=== PATIENT | male | born 1940 | race Caucasian/White ===

== ENCOUNTER 2020-04-23 09:06 | Inpatient (IN) | payer OTHER ==
[2020-04-23 09:35] LABS: Absolute Lymphocytes (CBC) 3.1 K/uL (0.7-4.9); Basophils % 1.1 % (0-1.3); Hematocrit 40.4 % (39.6-49.0); Lymphocytes % 32.9 % (15.3-44.8); MPV 8.4 fL (7.6-11.3); RBC Red Blood Cell Count 4.43 M/uL (4.33-5.43)
[2020-04-23 09:36] LABS: Protime INR 0.97
--- NOTE | 2020-04-23 09:40 | RAD REPORT ---
EXAM DESCRIPTION: CT - Ct Stroke Brain Wo Cont - 04/23/2020 9:29 am CLINICAL HISTORY: facial droop, right sided paresthesias Headache, CVA COMPARISON: No comparisons TECHNIQUE: All CT scans are performed using dose optimization technique as appropriate and may inclu de automated exposure control or mA/KV adjustment according to patient size. FINDINGS: No intracranial hemorrhage, hydrocephalus or extra-axial fluid collection.2.1 cm area of d iminished density in the right frontal lobe is noted suggesting subacute to chronic ischemia. The paranasal sinuses and mastoids are clear. The calvarium is intact. IMPRESSION: 2.1 cm area of diminished density right frontal lobe probably represent subacute to transplant registered nurse angel ischemic insult. Elsewhere, no acute process is suspected. The findings were discussed with Dr. Harris in the emergency room on 04/23/2020 at 9:35 a.m. by helio garcía.
--- NOTE | 2020-04-23 09:44 | RAD REPORT ---
EXAM DESCRIPTION: RAD - Chest Single View - 04/23/2020 9:39 am CLINICAL HISTORY: weakness Chest pain. COMPARISON: CHEST SINGLE VIEW dated 10/14/2009 FINDINGS: Portable technique limits examination quality. The lungs are grossly clear. The heart is normal in size. No displaced fractures.Sternotomy wires pre sent. IMPRESSION: No acute intrathoracic process suspected.
[2020-04-23 09:50] LABS: ALT/SGPT 24 U/L (12-78); AST/SGOT 26 U/L (15-37); Albumin 4.1 g/dL (3.4-5.0); Alkaline Phosphatase 72 U/L (45-117); BUN Blood Urea Nitrogen 16 mg/dL (7-18); Bicarbonate 28 mmol/L (21-32); Bilirubin Direct 0.1 mg/dL (0-0.2); Bilirubin Total 0.6 mg/dL (0.2-1.0); Glucose Level 129 mg/dL (74-106); Magnesium 1.9 mg/dL (1.8-2.4); NT PRO-BNP 162 pg/mL (<450); Potassium 4.4 mmol/L (3.5-5.1); Protein, Total 7.2 g/dL (6.4-8.2); Sodium Level 139 mmol/L (136-145); Troponin (Emerg Dept Use Only) < 0.02 ng/mL (0.0-0.045)
--- NOTE | 2020-04-23 10:20 | ER ---
Nurse's Notes [facility] Name: Juanpablo Guevara Age: 80 yrs Sex: Male : 1940 Arrival Date: 04/23/2020 Time: 09:06 Bed 20 Private MD: Diagnosis: Cerebral infarction Presentation: 04/23 09:08 Chief complaint: Patient states: Woke up this morning at 0730 with numbness to R side ss of face and arm/ hand. Last known well was before going to bed at 1930 yesterday evening. Coronavirus screen: Client denies travel out of the [place] in the last 14 days. Ebola Screen: Patient denies exposure to infectious person. Patient denies travel to an Ebola-affected area in the 21 days before illness onset. An acute neurological deficit is present. The patient has been moved to a treatment area. Pre-hospital glucose is not applicable to this patient. Initial Sepsis Screen: Does the patient meet any 2 criteria? No. Patient's initial sepsis screen is negative. Does the patient have a suspected source of infection? No. Patient's initial sepsis screen is negative. Risk Assessment: Do you want to hurt yourself or someone else? Patient reports no desire to harm self or others. Onset of symptoms is unknown. 09:08 Method Of Arrival: Wheelchair ss 09:08 Acuity: CHRISTOPHE 3 ss Triage Assessment: 09:08 The onset of the patients symptoms was April 23, 2020 at 07:30. General: Appears in sv no apparent distress. comfortable, well groomed, well developed, Behavior is calm, cooperative, appropriate for age. Pain: Denies pain. Neuro: Level of Consciousness is awake, alert, obeys commands, Oriented to person, place, time, situation, Floating Operator are equal bilaterally Moves all extremities. Full function Gait is steady, Speech is normal, Facial symmetry appears normal, Reports numbness in right side of face and right arm. Cardiovascular: Patient's skin is warm and dry. Respiratory: Airway is patent Respiratory effort is even, unlabored, Respiratory pattern is regular, symmetrical. Derm: Skin is intact, Skin is pink, warm \T\ dry. Stroke Activation: Unknown of onset of time. Last known well was 1929 yesterday evening. Physician: Stroke Attending; Name: ; Notified At: ; Arrived At: Physician: Chief Stroke Resident; Name: ; Notified At: ; Arrived At: Physician: Stroke Resident; Name: ; Notified At: ; Arrived At: Physician: ED Attending; Name: ; Notified At: ; Arrived At: Physician: ED Resident; Name: ; Notified At: ; Arrived At: Historical: - Allergies: 09:21 Codeine; ss - Home Meds: 09:32 Plavix 75 mg Oral tab 1 tab once daily [Active]; Norvasc 5 mg Oral tab 1 tab once daily sv [Active]; citalopram 20 mg tab 1 tab once daily [Active]; lisinopril 40 mg Oral tab twice a day [Active]; metformin 1,000 mg Oral tab 1 tab 2 times per day [Active]; Lasix 20 mg Oral tab 1 tab once daily [Active]; levothyroxine 125 mcg tab 1 tab once daily [Active]; Vitamin Oral tab 1 tab once daily [Active]; Lamisil 250 mg oral tab 1 tab once daily [Active]; olanzapine 5 mg oral tab nightly [Active]; aspirin 81 mg Oral TbEC 1 tab once daily [Active]; atorvastatin 80 mg oral tab nightly [Active]; donepezil 5 mg oral tab nightly [Active]; carbidopa-levodopa 25-100 mg Oral tab 1 tab 3 times per day [Active]; magnesium oxide 500 mg Oral cap daily [Active]; - Immunization history:: Adult Immunizations up to date. - Social history:: Smoking status: Patient/guardian denies using tobacco, but has a distant history of tobacco abuse. Screenin:09 VAN Screening: Arm Drift: Patient shows no arm weakness. Visual Disturbance: No visual ss disturbance noted. Aphasia: No aphasia noted. Neglect: No neglect noted. 09:23 Abuse screen: Denies threats or abuse. Denies injuries from another. Nutritional ss screening: No deficits noted. Tuberculosis screening: Never had TB. 09:35 Fall Risk None identified. sv Assessment: 09:09 VAN Scoring: Arm Drift: Patients demonstrates NO arm weakness. Patient is VAN Negative. sv 09:35 T-PA (Activase) Screening: Contraindications: Patient reports onset of signs and sv symptoms of stroke greater than 6 hours ago: Yes. 09:36 Patient has been NPO before screening. The patient is alert, and able to follow sv commands. The patient does not exhibit slurred or garbled speech. The patient is not exhibiting difficulty speaking. The patient does not exhibit difficulty understanding words. The patient is able to swallow own secretions with no drooling or need for suction. Patient tolerated one teaspoon of water. No drooling, immediate coughing, gurgling, or clearing of the throat was noted. The patient tolerated 90mL of water. No drooling, immediate coughing, gurgling, or clearing of the throat was noted. The patient passed the bedside swallow screening. Oral medications may be given as ordered. Contact Physician for further diet orders. Provider notified of bedside swallow screening results: Bigg FRITZ. 09:36 Reassessment: Patient appears in no apparent distress at this time. No changes from sv previously documented assessment. Patient and/or family updated on plan of care and expected duration. Pain level reassessed. Patient is alert, oriented x 3, equal unlabored respirations, skin warm/dry/pink. Family at the bedside. Pain: Denies pain. Cardiovascular: Patient's skin is warm and dry. Rhythm is sinus rhythm. Respiratory: Airway is patent Respiratory effort is even, unlabored, Respiratory pattern is regular, symmetrical. 11:02 Reassessment: Patient appears in no apparent distress at this time. No changes from sv previously documented assessment. Patient and/or family updated on plan of care and expected duration. Pain level reassessed. Patient is alert, oriented x 3, equal unlabored respirations, skin warm/dry/pink. Vital Signs: 09:08 BP 180 / 75; Pulse 64; Resp 17; Temp 97.0(TE); Pulse Ox 100% on R/A; Weight 99.79 kg; ss Height 6 ft. 0 in. (182.88 cm); Pain 0/10; 09:51 BP 141 / 73; Pulse 61 MON; Resp 15; Pulse Ox 100% on R/A; sv 11:01 BP 160 / 76; Pulse 58 MON; Resp 15; Pulse Ox 100% on R/A; sv 09:08 Body Mass Index 29.84 (99.79 kg, 182.88 cm) 09:51 Sinus Rhythm sv 11:01 Sinus Rhythm sv NIH Stroke Scale Scores: 09:09 NIHSS Score: 1 ss 09:09 NIHSS Score: 1 sv 09:23 NIHSS Score: 2 [facility] ED Course: 09:06 Patient arrived in ED. mr 09:09 Bigg Baugh PA is PHCP. jmm 09:09 Albrao Harris MD is Attending Physician. jmm 09:15 Inserted saline lock: 20 gauge in right antecubital area, using aseptic technique. ss ,using aseptic technique. insertion by Laila Estrada RN Blood collected. 09:20 Triage completed. ss 09:[address] via stretcher. sv 09:21 Arm band placed on right wrist. ss 09:23 Patient has correct armband on for positive identification. Bed in low position. Call ss light in reach. Side rails up X2. monitor car operator on. Pulse ox on. NIBP on. 09:29 Laila Estrada RN is Primary Nurse. sv 09:29 CT Stroke Brain w/o Contrast In Process Unspecified. EDMS 09:[address] back from [address]. sv 09:36 X-ray(s) taken. sv 09:37 Awaiting lab results, Awaiting radiology results. sv 09:37 XRAY Chest (1 view) Sent. sv 09:40 XRAY Chest (1 view) In Process Unspecified. EDMS 10:19 Prince Judge MD is Hospitalizing Provider. [facility] 11:00 No provider procedures requiring assistance completed. Patient admitted, IV remains in sv place. intact. Administered Medications: No medications were administered Point of Care Testing: Blood Glucose: 09:21 Blood Glucose: 128 mg/dL; Ranges: Output: 11:27 Urine: 400ml (Voided); Total: 400ml. sv Outcome: 10:19 Decision to Hospitalize by Provider. [facility] 11:00 Admitted to Tele accompanied by [employer], via wheelchair, room 230, with chart, Report sv called to Tevin BALDERRAMA 11:00 Condition: stable 11:00 Instructed on the need for admit. 11:30 Patient left the ED. sv NIH Stroke Scale - NIH Stroke Score Date: 04/23/2020 Time: 09:09 Total Score = 1 1a. Level of Consciousness (LOC) - 0(Alert) 1b. Level of Consciousness (LOC) (Year \T\ Age) - 0(Both) 1c. LOC Commands (Open \T\ Closes Eyes/Souvenir Assembler) - 0(Both) 2. Best Gaze (Lateral Gaze Paresis) - 0(Normal) 3. Visual Field Loss - 0(No visual loss) 4. Facial Palsy - 0(Normal) 5a. Left Arm: Motor (10-second hold) - 0(No drift) 5b. Right Arm: Motor (10-second hold) - 0(No drift) 6a. Left Leg: Motor (5-second hold - always test supine) - 0(No drift) 6b. Right Leg: Motor (5-second hold - always test supine) - 0(No drift) 7. Limb Ataxia (finger/nose \T\ heel/gomes - test with eyes open) - 0(Absent) 8. Sensory Loss (pinprick arms/legs/face) - 1(Mild to moderate loss) 9. Best Language: Aphasia (description/naming/reading) - 0(No aphasia) 10. Dysarthria (speech clarity - read or repeat words) - 0(Normal) 11. Extinction and Inattention (visual/tactile/auditory/spatial/personal) - 0(No abnormality) Initials: NIH Stroke Scale - NIH Stroke Score Date: 04/23/2020 Time: 09:09 Total Score = 1 1a. Level of Consciousness (LOC) - 0(Alert) 1b. Level of Consciousness (LOC) (Year \T\ Age) - 0(Both) 1c. LOC Commands (Open \T\ Closes Eyes/Souvenir Assembler) - 0(Both) 2. Best Gaze (Lateral Gaze Paresis) - 0(Normal) 3. Visual Field Loss - 0(No visual loss) 4. Facial Palsy - 0(Normal) 5a. Left Arm: Motor (10-second hold) - 0(No drift) 5b. Right Arm: Motor (10-second hold) - 0(No drift) 6a. Left Leg: Motor (5-second hold - always test supine) - 0(No drift) 6b. Right Leg: Motor (5-second hold - always test supine) - 0(No drift) 7. Limb Ataxia (finger/nose \T\ heel/gomes - test with eyes open) - 0(Absent) 8. Sensory Loss (pinprick arms/legs/face) - 1(Mild to moderate loss) 9. Best Language: Aphasia (description/naming/reading) - 0(No aphasia) 10. Dysarthria (speech clarity - read or repeat words) - 0(Normal) 11. Extinction and Inattention (visual/tactile/auditory/spatial/personal) - 0(No abnormality) Initials: mignon NIH Stroke Scale - NIH Stroke Score Date: 04/23/2020 Time: 09:23 Total Score = 2 1a. Level of Consciousness (LOC) - 0(Alert) 1b. Level of Consciousness (LOC) (Year \T\ Age) - 0(Both) 1c. LOC Commands (Open \T\ Closes Eyes/Souvenir Assembler) - 0(Both) 2. Best Gaze (Lateral Gaze Paresis) - 0(Normal) 3. Visual Field Loss - 0(No visual loss) 4. Facial Palsy - 1(Minor Paralysis) 5a. Left Arm: Motor (10-second hold) - 0(No drift) 5b. Right Arm: Motor (10-second hold) - 0(No drift) 6a. Left Leg: Motor (5-second hold - always test supine) - 0(No drift) 6b. Right Leg: Motor (5-second hold - always test supine) - 0(No drift) 7. Limb Ataxia (finger/nose \T\ heel/gomes - test with eyes open) - 0(Absent) 8. Sensory Loss (pinprick arms/legs/face) - 1(Mild to moderate loss) 9. Best Language: Aphasia (description/naming/reading) - 0(No aphasia) 10. Dysarthria (speech clarity - read or repeat words) - 0(Normal) 11. Extinction and Inattention (visual/tactile/auditory/spatial/personal) - 0(No abnormality) Initials: yolanda Signatures: Dispatcher [employer] Laila Urias RN RN sv Mickail, Joel, PA PA [facility] Ivis Henley Shelby, CONCHIS BALDERRAMA ss Corrections: (The following items were deleted from the chart) 11:08 11:01 BP 101 / 62; Pulse 80bpm; Monitor: Sinus RhythmResp 20bpm; Pulse Ox 100% sv RA; sv
--- NOTE | 2020-04-23 10:21 | EDPHYS ---
Physician Documentation [facility] Name: Juanpablo Guevara Age: 80 yrs Sex: Male : 1940 Arrival Date: 04/23/2020 Time: 09:06 Bed 20 Private MD: ED Physician Albaro Harris HPI: 04/23 09:23 This 80 yrs old Male presents to ER via Wheelchair with complaints of Facial jmm Droop, Numbness Of Face, Numbness Of Arm. 09:23 The patient presents to the emergency department with paresthesias of the right upper jmm extremity, right side of the face. Onset: The symptoms/episode began/occurred. Associated signs and symptoms: Pertinent negatives:. This is a 80 year old male that presents to the ED with complaints of right sided facial droop and right arm numbness upon awakening this morning. Patient states he went to bed at 730 pm last and felt normal. . Historical: - Allergies: 09:21 Codeine; ss - Home Meds: 09:32 Plavix 75 mg Oral tab 1 tab once daily [Active]; Norvasc 5 mg Oral tab 1 tab once daily sv [Active]; citalopram 20 mg tab 1 tab once daily [Active]; lisinopril 40 mg Oral tab twice a day [Active]; metformin 1,000 mg Oral tab 1 tab 2 times per day [Active]; Lasix 20 mg Oral tab 1 tab once daily [Active]; levothyroxine 125 mcg tab 1 tab once daily [Active]; Vitamin Oral tab 1 tab once daily [Active]; Lamisil 250 mg oral tab 1 tab once daily [Active]; olanzapine 5 mg oral tab nightly [Active]; aspirin 81 mg Oral TbEC 1 tab once daily [Active]; atorvastatin 80 mg oral tab nightly [Active]; donepezil 5 mg oral tab nightly [Active]; carbidopa-levodopa 25-100 mg Oral tab 1 tab 3 times per day [Active]; magnesium oxide 500 mg Oral cap daily [Active]; - Immunization history:: Adult Immunizations up to date. - Social history:: Smoking status: Patient/guardian denies using tobacco, but has a distant history of tobacco abuse. ROS: 09:23 Constitutional: Negative for fever, chills, and weight loss, Cardiovascular: Negative jmm for chest pain, palpitations, and edema, Respiratory: Negative for shortness of breath, cough, wheezing, and pleuritic chest pain. 09:23 Neuro: Positive for numbness. 09:23 All other systems are negative. Exam: 09:23 Constitutional: This is a well developed, well nourished patient who is awake, alert, jmm and in no acute distress. 09:23 Eyes: EOMI, no conjunctival erythema appreciated ENT: Moist Mucus Membranes Neck: Trachea midline, Supple Chest/axilla: Normal chest wall appearance and motion. Cardiovascular: Regular rate and rhythm. No edema appreciated Respiratory: Normal respirations, no respiratory distress appreciated Abdomen/GI: Non distended, soft Back: Normal ROM Skin: General appearance color normal 09:23 Head/face: right sided facial droop. 09:23 Musculoskeletal/extremity: ROM: intact in all extremities. 09:23 Skin: Appearance: Color: normal in color. 09:23 Neuro: Orientation: is normal, Mentation: is normal, Memory: is normal. 09:23 Psych: Behavior/mood is pleasant, cooperative. 10:52 ECG was reviewed by the Attending Physician. [facility] Vital Signs: 09:08 BP 180 / 75; Pulse 64; Resp 17; Temp 97.0(TE); Pulse Ox 100% on R/A; Weight 99.79 kg; ss Height 6 ft. 0 in. (182.88 cm); Pain 0/10; 09:51 BP 141 / 73; Pulse 61 MON; Resp 15; Pulse Ox 100% on R/A; sv 11:01 BP 160 / 76; Pulse 58 MON; Resp 15; Pulse Ox 100% on R/A; sv 09:08 Body Mass Index 29.84 (99.79 kg, 182.88 cm) ss 09:51 Sinus Rhythm sv 11:01 Sinus Rhythm sv NIH Stroke Scale Scores: 09:09 NIHSS Score: 1 ss 09:09 NIHSS Score: 1 sv 09:23 NIHSS Score: 2 [facility] MDM: 09:14 Patient medically screened. [facility] 10:17 Data reviewed: vital signs, nurses notes. Counseling: I had a detailed discussion with [facility] the patient and/or guardian regarding: the historical points, exam findings, and any diagnostic results supporting the discharge/admit diagnosis, lab results, radiology results, the need for further work-up and treatment in the hospital. ED course: I discussed the patient with Dr. Chase and Dr. Funk whom accepted admission. . 04/23 09:15 Order name: Basic Metabolic Panel; Complete Time: 09:52 [facility] 04/23 09:15 Order name: CBC with Diff; Complete Time: :46 m 04/23 09:15 Order name: LFT's; Complete Time: :52 [facility] 04/23 09:15 Order name: Magnesium; Complete Time: :52 [facility] 04/23 09:15 Order name: NT PRO-BNP; Complete Time: :52 [facility] 04/23 09:15 Order name: PT-INR; Complete Time: :46 [facility] 04/23 09:15 Order name: Troponin (emerg Dept Use Only); Complete Time: :52 [facility] 04/23 09:15 Order name: XRAY Chest (1 view); Complete Time: :46 [facility] 04/23 09:15 Order name: EKG; Complete Time: 09:17 [facility] 04/23 09:15 Order name: Cardiac monitoring; Complete Time: 09:29 [facility] 04/23 09:15 Order name: EKG - Nurse/Tech; Complete Time: 09:29 [facility] 04/23 09:15 Order name: IV Saline Lock; Complete Time: 09:29 [facility] 04/23 09:15 Order name: CT Stroke Brain w/o Contrast; Complete Time: :46 [facility] 04/23 09:36 Order name: Glucose, Ancillary Testing; Complete Time: 09:46 [facility] 04/23 09:15 Order name: Labs collected and sent; Complete Time: 09:29 [facility] 04/23 09:15 Order name: O2 Per Protocol; Complete Time: 09:30 [facility] 04/23 09:15 Order name: O2 Sat Monitoring; Complete Time: 09:30 jmm EC:52 Rate is 59 beats/min. Rhythm is regular. QRS [place] is Normal. AR interval is normal. QRS jmm interval is normal. QT interval is normal. No Q waves. T waves are Inverted in leads V1, V4, V5. T waves are Flattened in lead aVR. No ST changes noted. Reviewed by me. Administered Medications: No medications were administered Point of Care Testing: Blood Glucose: 09:21 Blood Glucose: 128 mg/dL; ss Ranges: Critical Glucose Levels:Adult <50 mg/dl or >400 mg/dl <40 mg/dl or >180 mg/dl Disposition: 04/23/20 10:19 Hospitalization ordered by Prince Nu for Observation. Preliminary diagnosis is Cerebral infarction. - Bed requested for Telemetry/MedSurg (observation). - Status is Observation. sv - Condition is Stable. - Problem is new. - Symptoms are unchanged. NIH Stroke Scale - NIH Stroke Score Date: 04/23/2020 Time: 09: Total Score = 1 1a. Level of Consciousness (LOC) - 0(Alert) 1b. Level of Consciousness (LOC) (Year \T\ Age) - 0(Both) 1c. LOC Commands (Open \T\ Closes Eyes/Frit Burner) - 0(Both) 2. Best Gaze (Lateral Gaze Paresis) - 0(Normal) 3. Visual Field Loss - 0(No visual loss) 4. Facial Palsy - 0(Normal) 5a. Left Arm: Motor (10-second hold) - 0(No drift) 5b. Right Arm: Motor (10-second hold) - 0(No drift) 6a. Left Leg: Motor (5-second hold - always test supine) - 0(No drift) 6b. Right Leg: Motor (5-second hold - always test supine) - 0(No drift) 7. Limb Ataxia (finger/nose \T\ heel/gomes - test with eyes open) - 0(Absent) 8. Sensory Loss (pinprick arms/legs/face) - 1(Mild to moderate loss) 9. Best Language: Aphasia (description/naming/reading) - 0(No aphasia) 10. Dysarthria (speech clarity - read or repeat words) - 0(Normal) 11. Extinction and Inattention (visual/tactile/auditory/spatial/personal) - 0(No abnormality) Initials: NIH Stroke Scale - NIH Stroke Score Date: 04/23/2020 Time: 09: Total Score = 1 1a. Level of Consciousness (LOC) - 0(Alert) 1b. Level of Consciousness (LOC) (Year \T\ Age) - 0(Both) 1c. LOC Commands (Open \T\ Closes Eyes/Frit Burner) - 0(Both) 2. Best Gaze (Lateral Gaze Paresis) - 0(Normal) 3. Visual Field Loss - 0(No visual loss) 4. Facial Palsy - 0(Normal) 5a. Left Arm: Motor (10-second hold) - 0(No drift) 5b. Right Arm: Motor (10-second hold) - 0(No drift) 6a. Left Leg: Motor (5-second hold - always test supine) - 0(No drift) 6b. Right Leg: Motor (5-second hold - always test supine) - 0(No drift) 7. Limb Ataxia (finger/nose \T\ heel/gomes - test with eyes open) - 0(Absent) 8. Sensory Loss (pinprick arms/legs/face) - 1(Mild to moderate loss) 9. Best Language: Aphasia (description/naming/reading) - 0(No aphasia) 10. Dysarthria (speech clarity - read or repeat words) - 0(Normal) 11. Extinction and Inattention (visual/tactile/auditory/spatial/personal) - 0(No abnormality) Initials: NIH Stroke Scale - NIH Stroke Score Date: 04/23/2020 Time: 09:23 Total Score = 2 1a. Level of Consciousness (LOC) - 0(Alert) 1b. Level of Consciousness (LOC) (Year \T\ Age) - 0(Both) 1c. LOC Commands (Open \T\ Closes Eyes/Frit Burner) - 0(Both) 2. Best Gaze (Lateral Gaze Paresis) - 0(Normal) 3. Visual Field Loss - 0(No visual loss) 4. Facial Palsy - 1(Minor Paralysis) 5a. Left Arm: Motor (10-second hold) - 0(No drift) 5b. Right Arm: Motor (10-second hold) - 0(No drift) 6a. Left Leg: Motor (5-second hold - always test supine) - 0(No drift) 6b. Right Leg: Motor (5-second hold - always test supine) - 0(No drift) 7. Limb Ataxia (finger/nose \T\ heel/gomes - test with eyes open) - 0(Absent) 8. Sensory Loss (pinprick arms/legs/face) - 1(Mild to moderate loss) 9. Best Language: Aphasia (description/naming/reading) - 0(No aphasia) 10. Dysarthria (speech clarity - read or repeat words) - 0(Normal) 11. Extinction and Inattention (visual/tactile/auditory/spatial/personal) - 0(No abnormality) Initials: yolanda Addendum: 04/25/2020 18:40 Co-signature as Attending Physician, Albaro Harris MD I agree with the [facility] assessment and plan of care. Signatures: Dispatcher [employer] EDLaila Rivas, RN RN Autumn Apodaca RN RN Ablaro Harris MD MD [facility] Bigg Baugh PA PA [facility] Valentina Beauchamp RN RN ss Corrections: (The following items were deleted from the chart) 04/23 10:36 10:19 Hospitalization Ordered by Prince Nu REYNA for Observation. Preliminary diagnosis is Cerebral infarction. Bed requested for Telemetry/MedSurg (observation). Status is Observation. Condition is Stable. Problem is new. Symptoms are unchanged. andrez 11:30 10:36 04/23/2020 10:19 Hospitalization Ordered by Prince Nu REYNA for sv Observation. Preliminary diagnosis is Cerebral infarction. Bed requested for Telemetry/MedSurg (observation). Status is Observation. Condition is Stable. Problem is new. Symptoms are unchanged. dw
--- NOTE | 2020-04-23 12:10 | P.HP ---
Certification for Inpatient Patient admitted to: Observation With expected LOS: <2 Midnights Practitioner: I am a practitioner with admitting privileges, knowledge of patient current condition, hospital course, and medical plan of care. Services: Services provided to patient in accordance with Admission requirements found in Title 42 Section 412.3 of the Code of Federal Regulations Patient History Date of Service: 04/23/20 Reason for admission: facial droop and RUE weakness History of Present Illness: Patient is a 80 year old male with a PMH of type II diabetes mellitus, CAD s/p PCI, PAD s/p carotid artery stent, CABGx4, and CVA. He presents to the ER accompanied by daughter for evaluation of new onset facial droop and RUE weakness. Patient was last seen normal before going to bed last evening. He woke with a right sided facial droop and numbness, and numbness to his R arm. He called his daughter immediately. As per daughter, patient sounded like hims elf without speech abnormalities or abnormal thought content. As per daughter, however, patient has been getting slightly forgetful over the past few months. He would forget simple things like remembering whether or not he took his medications. He does not remember whether or not he took his ASA and plavix this morning. 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 He arrived in the ER with SBP 180 mmHg. No ASA or plavix was given as he told the ER team that he took those medications this morning. CT Head showed a 2.1 cm frontal lobe density suspicious for subacute to chronic ischemic insult. Allergies codeine Allergy (Verified 04/23/20 10:36) Hives Physical Examination - Vital Signs Temperature: 97.0 F Blood Pressure: 160/76 Pulse: 58 Respirations: 15 - Physical Exam General: Alert, In no apparent distress, Cooperative HEENT: Atraumatic, Normocephalic, PERRLA, EOMI Neck: Supple Respiratory: Clear to auscultation bilaterally, Normal air movement Cardiovascular: No edema, Normal pulses, Regular rate/rhythm, Normal S1 S2 Gastrointestinal: Normal bowel sounds, Soft and benign, Non-distended, No tenderness Musculoskeletal: No clubbing, No swelling, No contractures, No erythema, No tenderness, No warmth Neurological: Normal speech, Sensation intact, Normal affect - Studies Laboratory Data (last 24 hrs) 04/23/20 09:15: PT 11.5, INR 0.97 04/23/20 09:15: WBC 9.5, Hgb 13.6, Hct 40.4, Plt Count 199 04/23/20 09:15: Sodium 139, Potassium 4.4, BUN 16, Creatinine 1.26, Glucose 129 H, Magnesium 1.9, Total Bilirubin 0.6, AST 26, ALT 24, Alkaline Phosphatase 72 Assessment and Plan - Problems (Diagnosis) (1) CVA (cerebral vascular accident) Current Visit: Yes Status: Acute (2) Coronary artery disease Current Visit: Yes Status: Acute (3) Hyperlipidemia Current Visit: Yes Status: Acute (4) Type II diabetes mellitus Current Visit: Yes Status: Acute (5) Hypothyroidism Current Visit: Yes Status: Acute (6) Hypertension Current Visit: Yes Status: Acute - Advance Directives Does patient have a Living Will: No Does patient have a Durable POA for Healthcare: No Physician Review Additional Text: Assessment Patient is a 80 year old male with extensive cardiovascular history including CAD S/P PCI, CABG, PAD s/p carotid artery stent placement and CVA. He is admitted for stroke work up after he presented with new onset facial droop and RUE numbness. No tPA given as his NIHSS 2. Patient was last seen normal at least 8 hours [employer] and the onset of his symptoms cannot be clinically determined. CVA/TIA CAD S/P CABGx4, PCI PAD s/p carotid artery stent placement Hyperlipidemia HTN Hypothyroidism PLAN: Admit under observation with telemetry Resume home dose of ASA and plavix Allow permissive HTN for the next few days with SBP < 220 mmHg Follow up MRI Brain, MRA head and neck and 2-D ECHO Follow up HbA1c and lipid panel PT/OT Neurology has been consulted by ER. Will follow recommendations
[2020-04-23 12:45] VITALS: BMI 29.8
[2020-04-23] MEDS: FOLIC ACID 1 MG TABLET PO SCH (13:00)
[2020-04-23] MEDS: CLOPIDOGREL 75 MG TABLET PO SCH (15:15)
[2020-04-23] MEDS: METFORMIN HCL 500 MG TAB PO SCH (18:22)
--- NOTE | 2020-04-23 19:00 | RAD REPORT ---
EXAM DESCRIPTION: MRI - Brain W/Wo Cont - 04/23/2020 5:57 pm CLINICAL HISTORY: CVA COMPARISON: April 23, [address] TECHNIQUE: Axial, sagittal, and coronal magnetic images of the brain were obtained. 20 cc MultiHance administered intravenously FINDINGS: 4 millimeter area of enhancement is present within the deep white matter of the right [place] lobe. 20 x 1 millimeter sliver of increased signal signal on diffusion weighted sequences is present within deep white matter of the right frontal lobe probably subacute infarction The ventricles are normal in caliber. Small areas of increased signal within left frontal lobe have the appearance of old infarcts. 2 centimeter area of increased signal within the right frontal lobe likely old infarction. An extra-axial fluid collection is not noted. Fluid within the sinuses/mastoids is not seen IMPRESSION: Small subacute infarction right frontal lobe 4 millimeter area of enhancement within the deep white matter of the right frontal lobe. Most likely this is the sequela of a late subacute infarction. Neoplastic enhancement is considered less likely. This can be monitored on followup MRI the brain to assess stability/resolution
--- NOTE | 2020-04-23 19:23 | RAD REPORT ---
EXAM DESCRIPTION: MRI - MRA Neck W/Wo Cont - 04/23/2020 5:57 pm CLINICAL HISTORY: cva COMPARISON: None. TECHNIQUE: Magnetic resonance angiogram of the neck was performed. 20 cc MultiHance was administered intravenously. 3D MIPS reconstruction performed FINDINGS: High-grade stenosis right and left carotid bulbs and proximal internal carotid arteries. High-grade stenoses proximal right and left external carotid arteries There the common and external carotid arteries bilaterally are unremarkable without significant steno sis. The left vertebral artery is dominant without visualization of an abnormality. IMPRESSION: Severe stenoses right and left carotid bulbs and proximal right and left internal caroti d arteries NASCET criteria used. Mild 0-49% stenosis Moderate 50-69% stenosis Severe 70-99% stenosis
--- NOTE | 2020-04-23 19:25 | RAD REPORT ---
EXAM DESCRIPTION: MRI - MRA Head Wo Cont - 04/23/2020 5:57 pm CLINICAL HISTORY: cva COMPARISON: None. TECHNIQUE: Magnetic resonance angiogram was performed. 3D MIPS reconstruction performed FINDINGS: The anterior cerebral, left middle cerebral, posterior cerebral, distal internal carotid a nd basilar arteries do not demonstrate a significant stenosis. Moderate narrowing M2 segment right middle cerebral artery An aneurysm is not displayed. IMPRESSION: Moderate narrowing M2 segment right middle cerebral artery
[2020-04-23] MEDS ORDERED: D50W 25 GM/50 ML SYRINGE/VIAL IV PRN (19:46)
[2020-04-23] MEDS ORDERED: GLUCAGON 1 MG/VIAL IM PRN (19:46)
[2020-04-23] MEDS: INSULIN -REGULAR HUMAN 50 UNIT/0.5 ML ML SQ SCH (20:27)
[2020-04-23] MEDS ORDERED: HOME MED 1 EA UNK (Metformin Hcl [Metformin Hcl] 1 TAB) PO SCH (21:00)
[2020-04-23 23:29] VITALS: O2SAT 97
[2020-04-24] MEDS ORDERED: LEVOTHYROXINE SOD 0.125 MG TAB PO SCH (06:00)
[2020-04-24] MEDS: INSULIN -REGULAR HUMAN 50 UNIT/0.5 ML ML SQ SCH ×2 (07:30→11:30)
[2020-04-24] MEDS: CLOPIDOGREL 75 MG TABLET PO SCH (08:44)
[2020-04-24] MEDS: FOLIC ACID 1 MG TABLET PO SCH (08:45)
[2020-04-24] MEDS: METFORMIN HCL 500 MG TAB PO SCH (08:45)
[2020-04-24] MEDS ORDERED: MAGNESIUM OXIDE 400 MG TAB PO SCH (09:00)
[2020-04-24] MEDS ORDERED: ATORVASTATIN 80 MG TAB PO SCH (09:00)
[2020-04-24] MEDS ORDERED: terbinafine HCL 250 MG TAB PO SCH (09:00)
[2020-04-24] MEDS ORDERED: HOME MED 1 EA UNK (Magnesium Oxide [Magnesium] 1 TAB) PO SCH (09:00)
[2020-04-24] MEDS ORDERED: CITALOPRAM HYDROBROMIDE 10 MG PO SCH (09:00)
[2020-04-24] MEDS ORDERED: CITALOPRAM 10 MG TABLET PO SCH (09:00)
[2020-04-24] MEDS ORDERED: ASPIRIN EC 81 MG TAB PO SCH (10:11)
--- NOTE | 2020-04-24 11:55 | P.DS ---
Admission Date: 04/23/20 Discharge Date: 04/24/20 Disposition: TRANSFER TO [facility] Discharge Condition: GOOD Reason for Admission: facial droop and RUE weakness - Problems (1) CVA (cerebral vascular accident) Current Visit: Yes Status: Acute (2) Coronary artery disease Current Visit: Yes Status: Acute (3) Hyperlipidemia Current Visit: Yes Status: Acute (4) Type II diabetes mellitus Current Visit: Yes Status: Acute (5) Hypothyroidism Current Visit: Yes Status: Acute (6) Hypertension Current Visit: Yes Status: Acute Brief History of Present Illness: Patient is a 80 year old male with a PMH of type II diabetes mellitus, CAD s/p PCI, PAD s/p carotid artery stent, CABGx4, and CVA. He presents to the ER accompanied by daughter for evaluation of new onset facial droop and RUE weakness. Patient was last seen normal before going to bed last evening. He woke with a right sided facial droop and numbness, and numbness to his R arm. He called his daughter immediately. As per daughter, patient sounded like himself without speech abnormalities or abnormal thought content. As per daughter, however, patient has been getting slightly forgetful over the past few months. He would forget simple things like remembering whether or not he took his medications. He does not remember whether or not he took his ASA and plavix this morning. 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 He arrived in the ER with SBP 180 mmHg. No ASA or plavix was given as he told the ER team that he took those medications this morning. CT Head showed a 2.1 cm frontal lobe density suspicious for subacute to chronic ischemic insult. Hospital Course: Patient did well throughout this stay. His symptoms are nearly resolved. His work up, however, showed he remains a high risk for future/imminent stroke. MRA brain and neck showed moderate narrowing of M2 segment of the MCA, but also severe narrowing of both the left and right internal carotid artery. Since patient has good level of function a this time and is the main caregiver for , he will be an ideal candidate for cerebral angiogram for potential mechanical intra-arterial intervention to prevent future cerebral insults. Sign out given to Neuro interventionalist at [facility] in [place]. In the meantime, I will continue permissive hypertension, and discontinue home meds for now. Discharge on DAPT and folic acid Vital Signs/Physical Exam: Temp Pulse Resp BP Pulse Ox 97.5 F 75 18 169/77 H 97 04/24/20 08:00 04/24/20 08:00 04/24/20 08:00 04/24/20 08:00 04/24/20 08:00 General: In no apparent distress, Cooperative HEENT: Atraumatic, Normocephalic, EOMI Neck: Supple Respiratory: Clear to auscultation bilaterally, Normal air movement Cardiovascular: No edema, Normal pulses, Regular rate/rhythm, Normal S1 S2 Gastrointestinal: Normal bowel sounds, Soft and benign, Non-distended, No tenderness Musculoskeletal: No clubbing, No swelling, No contractures, No erythema, No tenderness, No warmth Neurological: Normal speech, Sensation intact, Normal affect Laboratory Data at Discharge: WBC 9.5 K/uL (4.3-10.9) 04/23/20 09:15 Hgb 13.6 g/dL (13.6-17.9) 04/23/20 09:15 Hct 40.4 % (39.6-49.0) 04/23/20 09:15 Plt Count 199 K/uL (152-406) 04/23/20 09:15 PT 11.5 SECONDS (9.5-12.5) 04/23/20 09:15 INR 0.97 04/23/20 09:15 Sodium 139 mmol/L (136-145) 04/23/20 09:15 Potassium 4.4 mmol/L (3.5-5.1) 04/23/20 09:15 BUN 16 mg/dL (7-18) 04/23/20 09:15 Creatinine 1.26 mg/dL (0.55-1.3) 04/23/20 09:15 Glucose 129 mg/dL (74-106) H 04/23/20 09:15 Magnesium 1.9 mg/dL (1.8-2.4) 04/23/20 09:15 Total Bilirubin 0.6 mg/dL (0.2-1.0) 04/23/20 09:15 AST 26 U/L (15-37) 04/23/20 09:15 ALT 24 U/L (12-78) 04/23/20 09:15 Alkaline Phosphatase 72 U/L (45-117) 04/23/20 09:15 Triglycerides 184 mg/dL (<150) H 04/24/20 05:45 Cholesterol 117 mg/dL (<200) 04/24/20 05:45 HDL Cholesterol 49 mg/dL (40-60) 04/24/20 05:45 Cholesterol/HDL Ratio 2.39 04/24/20 05:45 Home Medications: Atorvastatin Calcium [Lipitor] 1 tab PO DAILY 04/23/20 Citalopram Hydrobromide [Citalopram HBr] 10 mg PO DAILY 04/23/20 Clopidogrel Bisulfate [Plavix*] 1 tab PO DAILY 04/23/20 Levothyroxine [Synthroid*] 1 tab PO DAILY 04/23/20 Magnesium Oxide [Magnesium] 1 tab PO DAILY 04/23/20 Metformin HCl 1 tab PO BID 04/23/20 terbinafine HCL [Terbinafine HCl] 1 tab PO DAILY 04/23/20 Folic Acid 1 mg PO DAILY #30 tablet 04/24/20 New Medications: Folic Acid 1 mg PO DAILY #30 tablet Followup: NARGIS BARILLAS [Primary Care Provider] -
[2020-04-24 12:12] VITALS: BP 134/70; TEMP 97.7
--- NOTE | 2020-04-26 07:45 | ECHO ---
HEIGHT: 6 ft 0 in WEIGHT: 220 lb 0 oz DATE OF STUDY: 04/23/[address]: Prince Abhi Judge MD 2-DIMENSIONAL: YES M.MODE: YES DOPPLER: YES COLOR FLOW: YES TDS: PORTABLE: DEFINITY: BUBBLE STUDY: DIAGNOSIS: CEREBRAL VASCULAR ACCIDENT CARDIAC HISTORY: CATHERIZATION: YES SURGERY: YES PROSTHETIC VALVE: NO PACEMAKER: NO MEASUREMENTS (cm) DIASTOLIC (NORMALS) SYSTOLIC (NORMALS) IVSd 1.2 (0.6-1.2) LA Diam 3.1 (1.9-4.0) LVEF 65% LVIDd 4.6 (3.5-5.7) LVIDs 2.9 (2.0-3.5) %FS 36% LVPWd 1.3 (0.6-1.2) Ao Diam 3.3 (2.0-3.7) 2 DIMENSIONAL ASSESSMENT: RIGHT ATRIUM: NORMAL LEFT ATRIUM: NORMAL RIGHT VENTRICLE: NORMAL LEFT VENTRICLE: NORMAL TRICUSPID VALVE: NORMAL MITRAL VALVE: NORMAL PULMONIC VALVE: NORMAL AORTIC VALVE: THICKENED AND CALCIFIED VALVE. NO AORTIC STENOSIS PERICARDIAL EFFUSION: NONE AORTIC ROOT: NORMAL LEFT VENTRICULAR WALL MOTION: NORMAL DOPPLER/COLOR FLOW: NORMAL COMMENTS: NORMAL LEFT VENTRICULAR EJECTION FRACTION 55-60% WITH NORMAL WALL MOTION. THICKENED AND CALCIFIED AORTIC VALVE BUT NO AORTIC STENOSIS. TECHNOLOGIST: LIZZ CHAPA
== END 2020-04-24 13:24 | disposition short-term general hospital (02) | DRG 66 ==
LOC: ER 09:06 → ERHOLD 10:27 → 2ND 11:02
PROVIDERS: ADMIT Internal Medicine; ATTEND Internal Medicine
DX: I63.9 Cerebral infarction, unspecified (principal); I25.10 Atherosclerotic heart disease of native coronary artery without angina pectoris; E11.51 Type 2 diabetes mellitus with diabetic peripheral angiopathy without gangrene; E03.9 Hypothyroidism, unspecified; E78.5 Hyperlipidemia, unspecified; R29.702 NIHSS score 2; R29.810 Facial weakness; R20.0 Anesthesia of skin; Z88.5 Allergy status to narcotic agent; Z79.02 Long term (current) use of antithrombotics/antiplatelets; Z79.84 Long term (current) use of oral hypoglycemic drugs; Z79.890 Hormone replacement therapy; Z95.1 Presence of aortocoronary bypass graft; Z79.899 Other long term (current) drug therapy; Z79.82 Long term (current) use of aspirin; Z86.73 Personal history of transient ischemic attack (TIA), and cerebral infarction without residual deficits; Z20.828 Contact with and (suspected) exposure to other viral communicable diseases
CPT/HCPCS: 36415; 70450; 70544; 70549; 70553; 71045; 80048; 80061; 80076; 82947; 83036; 83735; 83880; 84484; 85025; 85610; 93005; 93306; 97116; 97161; 97165; 99285; A9577; U0003

== ENCOUNTER 2020-06-07 16:22 | Inpatient (IN) | payer OTHER ==
--- OUTSIDE RECORDS SUMMARY | 2020-06-07 16:24 | XMS REPORT | Clinical Summary ---
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 magnesium oxide Take 400 mg by 0 Active (MAG-OX) 400 mg mouth daily. tablet metoprolol Take 50 mg by 0 Activ e (LOPRESSOR) 100 MG mouth daily Pt tablet takes 50 mg (1/2 of 100 mg tab) QD. levothyroxine Take 125 mcg by 0 Active (SYNTHROID, mouth daily. LEVOTHROID) 125 MCG tablet lisinopril Take 40 mg by 0 Activ e (PRINIVIL,ZESTRIL) mouth 2 (two) 40 MG tablet times daily. glimepiride Take 2 mg by 0 Activ e (AMARYL) 2 MG mouth every tablet morning before breakfast. furosemide (LASIX) Take 20 mg by 0 Active 20 MG tablet mouth daily. aspirin 81 MG EC Take 81 mg by 0 Active tablet mouth daily. nitroglycerin Take 0.4 mg by 1 01/23/20 A ctive (NITROSTAT) 0.4 MG mouth as needed. 18 SL tablet ONETOUCH DELICA Inject 1 strip 1 03/27/20 Active LANCETS 33 gauge subcutaneously 18 Misc daily. ONETOUCH ULTRA BLUE Inject 1 strip 1 03/27/20 Active TEST STRIP Strp subcutaneously 18 daily. metFORMIN Take 1,000 mg by 0 Act courtney (GLUCOPHAGE) 1000 mouth 2 (two) MG tablet times daily with breakfast and dinner. terbinafine HCL Take 250 mg by 0 Active (LamiSIL) 250 mg mouth daily. tablet clopidogreL Take 75 mg by 0 Acti ve (PLAVIX) 75 mg mouth daily. tablet amLODIPine Take 5 mg by 0 Active (NORVASC) 10 MG mouth daily. tablet atorvastatin Take 80 mg by 0 Act courtney (LIPITOR) 80 MG mouth daily. tablet citalopram (CeleXA) Take 20.5 mg by 0 Active 20 MG tablet mouth daily. magnesium 30 mg Take 500 mg by 0 Active tablet mouth daily. cholecalciferol Take 1,000 Units 0 Discontinued (VITAMIN D3) 1,000 by mouth daily. 020 (Other) unit tablet cyanocobalamin Take 1,000 mcg by 0 Discontinued (VITAMIN B-12) 1000 mouth daily. 020 (Other) MCG tablet cyanocobalamin, Take 1 tablet 100 tablet 1 04/26/20 vitamin B-12, (100 mcg total) 20 020 (vitamin B-12) 100 by mouth daily MCG tablet for 30 days. 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); 04/26/2020 Medicine MD Dewayne ALLIE (obstructiv e sleep apnea); B12 deficiency after 06/07/2019 Social History Tobacco Use Types Packs/Day Years Used Date Former Smoker Alcohol Use Drinks/Week oz/Week Comments Yes occasionally Sex Assigned at Date Recorded Not on file Last Filed Vital Signs Vital Sign Reading Time Taken Comments Blood Pressure 148/68 04/26/2020 11:03 AM PLANISHING HAMMER OPERATOR Pulse 62 04/26/2020 11:03 AM PLANISHING HAMMER OPERATOR Temperature 36.6 C (97.9 F) 04/26/2020 11:03 AM PLANISHING HAMMER OPERATOR Respiratory Rate 18 04/26/2020 11:03 AM PLANISHING HAMMER OPERATOR Oxygen Saturation 97% 04/26/2020 11:03 AM PLANISHING HAMMER OPERATOR Inhaled Oxygen Concentration - - Weight 102.1 kg (225 lb) 04/24/2020 3:00 PM PLANISHING HAMMER OPERATOR Height 182.9 cm (6') 04/24/2020 3:00 PM PLANISHING HAMMER OPERATOR Body Mass Index 30.52 04/24/2020 3:00 PM PLANISHING HAMMER OPERATOR Plan of Treatment Health Maintenance Due Date Last Done Comments PNEUMOCOCCAL 65+ YRS (1 of 1 - [id number]) 2007 MEDICARE ANNUAL WELLNESS (YEAR 2 or FIRST YEAR if no 06/19/2009 IPPE) DEPRESSION SCREENING (12+) 06/18/2019 INFLUENZA VACCINE Completed 03/04/2020 Implants Implanted Type Area Garage Mechanic Device Shelf Model / Identifier Expiration Serial / Date Lot Promus Premier Cardiovascular N/A: [place] [id number] 09/23 [id number] / Implanted: Qty: 1 on 04/06/2018 by Raymond Collier MD at [facility] Heart SCIENTIFIC / [id number] Description:P LAD Xience Alpine Otw NUNES VASCULAR DEVICE 11/03/2017 [id number] / Implanted: Qty: 1 on 02/25/2015 at [facility] / [id number] Xience Alpine Otw NUNES VASCULAR DEVICE 09/15/2017 [id number] - 23 / Implanted: Qty: 1 on 02/25/[address] [facility] R / [id number] [id number] Procedures Procedure Name Priority Date/Time Associated Comments Diagnosis POCT-GLUCOSE METER Routine 04/26/2020 11:26 Resul ts for this AM PLANISHING HAMMER OPERATOR procedure are i n the results section. INTRINSIC FACTOR Routine 04/26/2020 11:16 Results for this BLOCKING ANTIBODY AM PLANISHING HAMMER OPERATOR procedure are in the results section. POCT-GLUCOSE METER Routine 04/26/2020 8:53 Resul ts for this AM PLANISHING HAMMER OPERATOR procedure are i n the results section. BASIC METABOLIC PANEL Routine 04/26/2020 4:13 Re sults for this (7) AM PLANISHING HAMMER OPERATOR procedure are i n the results section. CBC W/PLT COUNT & Routine 04/26/2020 4:12 Result s for this AUTO DIFFERENTIAL AM PLANISHING HAMMER OPERATOR procedure are in the results section. CBC W/PLT COUNT & Routine 04/26/2020 4:12 Result s for this AUTO DIFFERENTIAL AM PLANISHING HAMMER OPERATOR procedure are in the results section. POCT-GLUCOSE METER Routine 04/25/2020 10:31 Resul ts for this PM PLANISHING HAMMER OPERATOR procedure are i n the results section. MR BRAIN WITHOUT IV TAO 04/25/2020 2:52 Resu lts for this CONTRAST PM PLANISHING HAMMER OPERATOR procedure are i n the results section. POCT-GLUCOSE METER Routine 04/25/2020 12:06 Resul ts for this PM PLANISHING HAMMER OPERATOR procedure are i n the results section. 2D ECHO W/ DOPPLER Routine 04/25/2020 9:27 Resul ts for this (CW/PW/COLOR) AM PLANISHING HAMMER OPERATOR procedure are in the results section. CT/CTA CAROTID Routine 04/25/2020 8:39 Results f or this AM PLANISHING HAMMER OPERATOR procedure are i n the results section. CTA BRAIN Routine 04/25/2020 8:39 Results for this AM PLANISHING HAMMER OPERATOR procedure are i n the results section. POCT-GLUCOSE METER Routine 04/25/2020 7:34 Resul ts for this AM PLANISHING HAMMER OPERATOR procedure are i n the results section. BASIC METABOLIC PANEL Routine 04/25/2020 5:50 Re sults for this (7) AM PLANISHING HAMMER OPERATOR procedure are i n the results section. SARS-COV2/RT-PCR Routine 04/25/2020 5:34 Results for this ([facility] & REF LABS) AM PLANISHING HAMMER OPERATOR procedure are in the results section. CBC W/PLT COUNT & Routine 04/25/2020 4:57 Result s for this AUTO DIFFERENTIAL AM PLANISHING HAMMER OPERATOR procedure are in the results section. CBC W/PLT COUNT & Routine 04/25/2020 4:57 Result s for this AUTO DIFFERENTIAL AM PLANISHING HAMMER OPERATOR procedure are in the results section. LIPID PANEL Routine 04/25/2020 12:41 Results for this AM PLANISHING HAMMER OPERATOR procedure are i n the results section. HEMOGLOBIN A1C Routine 04/25/2020 12:41 Results f or this AM PLANISHING HAMMER OPERATOR procedure are i n the results section. VITAMIN B12 AND Routine 04/25/2020 12:40 Results for this FOLATE AM PLANISHING HAMMER OPERATOR procedure are i n the results section. TSH/FREE T4 IF Routine 04/25/2020 12:40 Results f or this INDICATED AM PLANISHING HAMMER OPERATOR procedure are i n the results section. after 06/07/2019 Results POC-Glucose meter (04/26/2020 11:26 AM PLANISHING HAMMER OPERATOR)Only the most recent of5 results within the time period is included. POC-Glucose Meter 215 (H) 70 - 110 mg/dL [facility] Comment: [facility] : TESTED AT [facility] [address], [address] CENTER : De Icer Element Winder/Government Affairs Manager ID = [id number] for MIKEY COLÓN Specimen Blood Performing Organization Address City/[facility]/Zipcode Phone Number [facility] [address], [place] [phone] CENTER Intrinsic factor blocking antibody (04/26/2020 11:16 AM PLANISHING HAMMER OPERATOR) Intrinsic Factor NEGATIVE ADULTS: [facility] Block Ab Comment: NEGATIVE INCORPORATED For additional information, please refere to [email or web address] Inns/faq/IFAB (This link is being provided for informational/educati onal purposes only.) Specimen Blood Narrative Performed At Performing Lab [facility] [address] [place] [address] Antonio Ramon MD, PhD, CASEY Performing Organization Address City/[facility] Phone Number [facility] [place] [address] INCORPORATED [id number] [facility] Basic metabolic panel (04/26/2020 4:13 AM PLANISHING HAMMER OPERATOR)Only the most recent of2 results within the time period is included. Sodium 139 136 - 145 meq/L [facility] Potassium 4.4 3.5 - 5.1 meq/L [facility] Chloride 108 (H) 98 - 107 meq/L [facility] CO2 22 22 - 29 meq/L [facility] BUN 17 7 - 21 mg/dL [facility] Creatinine 1.02 0.57 - 1.25 [facility] mg/dL [facility] Glucose 119 (H) 70 - 105 mg/dL [facility] Calcium 8.6 8.4 - 10.2 [facility] mg/dL [facility] EGFR 71Comment: ESTIMATED mL/min/1.73 sq [facility] GFR IS NOT m [facility] ACCURATE [place] CREATININE CLEARANCE IN PREDICTING GLOMERULAR FILTRATION RATE. ESTIMATED GFR IS NOT APPLICABLE FOR DIALYSIS PATIENTS. Specimen Blood Narrative Performed At De [employer] Winder JAY - WONG [facility] Performing Organization Address City/State/Zipcode Phone Number [facility] [address] [place] [address] CENTER CBC with platelet count + automated diff (04/26/2020 4:12 AM PLANISHING HAMMER OPERATOR)Only the most recent of2 resultswithin the time period is included. Pathologist Sig nature WBC 7.4 3.5 - 10.5 [facility]/L [facility] RBC 3.88 (L) 4.63 - 6.08 [facility] Hemoglobin 11.7 (L) 13.7 - 17.5 [facility] GM/DL [facility] Hematocrit 35.3 (L) 40.1 - 51.0 % [facility] MCV 91.0 79.0 - 92.2 fL [facility] MCH 30.2 25.7 - 32.2 pg [facility] MCHC 33.1 32.3 - 36.5 [facility] GM/DL [facility] RDW 12.9 11.6 - 14.4 % [facility] Platelets 174 150 - 450 K/CU [facility] MPV 10.0 9.4 - 12.4 fL [facility] nRBC 0 0 - 0 /100 WBC [facility] % Neutros 53 % [facility] % Lymphs 32 % [facility] % Monos 9 % [facility] % Eos 5 % [facility] % Baso 1 % [facility] # Neutros 3.93 1.78 - 5.38 [facility] # Lymphs 2.36 1.32 - 3.57 [facility] K/L [facility] # Monos 0.68 0.30 - 0.82 [facility] K/L [facility] # Eos 0.35 0.04 - 0.54 [facility] K/L [facility] # Baso 0.06 0.01 - 0.08 [facility] K/L [facility] Immature 0 0 - 1 % [facility] Granulocytes-Relative [facility] Specimen Blood Performing Organization Address City/State/Zipcode Phone Number [facility] [address] [place] [address] CENTER MR brain without IV contrast (04/25/2020 2:52 PM PLANISHING HAMMER OPERATOR) Specimen Narrative Performed At FINAL REPORT [facility] MR, BRAIN, WITHOUT CONTRAST INDICATION: Stroke, follow up Technique: MRI of the brain utilizing ax ial T1, T2, FLAIR, GRE, DWI, sagittal T1; and postgadolinium axial, s agittal, and coronal T1-weighted images. COMPARISON: None FINDINGS: Acute infarcts of the medial left tempor al lobe and right frontal subcortical white matter. No hemorrhagic conversion or significant mass effect. Brain parenchyma is otherwi se normal in morphology. Midline structures are normally develope d. No abnormal susceptibility. Scattered T2/FLAIR hyperintense foci wit hin the periventricular and subcortical white matter are nonspecific , however, statistically represent chronic microvascular ischemic changes. No hydrocephalus. Orbits are within normal limits. No obstructive paranasal sinus disease. Additional findings: None. IMPRESSION: Acute infarcts of the medial left tempor al lobe and right frontal subcortical white matter. No hemorrhagic conversion or significant mass effect. Signed: Ludin Castanon MD Report Verified Date/Time: 04/25/2020 15:04:20 Reading Location: [address] Procedure Note Interface, External Ris In - 04/25/2020 3:06 PM PLANISHING HAMMER OPERATOR FINAL REPORT MR, BRAIN, WITHOUT CONTRAST INDICATION: Stroke, follow up Technique: MRI of the brain utilizing ax ial T1, T2, FLAIR, GRE, DWI, sagittal T1; and postgadolinium axial, s agittal, and coronal T1-weighted images. COMPARISON: None FINDINGS: Acute infarcts of the medial left tempor al lobe and right frontal subcortical white matter. No hemorrhagic conversion or significant mass effect. Brain parenchyma is otherwi se normal in morphology. Midline structures are normally develope d. No abnormal susceptibility. Scattered T2/FLAIR hyperintense foci wit hin the periventricular and subcortical white matter are nonspecific , however, statistically represent chronic microvascular ischemic changes. No hydrocephalus. Orbits are within normal limits. No obstructive paranasal sinus disease. Additional findings: None. IMPRESSION: Acute infarcts of the medial left tempor al lobe and right frontal subcortical white matter. No hemorrhagic conversion or significant mass effect. Signed: Ludin Castanon MD Report Verified Date/Time: 04/25/2020 1 5:04:20 Reading Location: [facility] [id number] [facility] Room Performing Organization Address City/State/Zipcode Phone Number Factor 14 2D Echo W/Doppler(CW/PW/Color) (04/25/2020 9:27 AM PLANISHING HAMMER OPERATOR) Pathologist Sig nature Ejection Fraction [facility] ECHO HEART[facility] MKCK [facility] Specimen Narrative Performed At Transthoracic Echocardiography Report (T TE) [facility] ECHO [facility]ART[facility] Demographics Patient Name DEE DEE GUEVARA Date of Study 04/25/2020 RAY Gender Male Visit Number [id number] Race Unknown Room Number 2209 Number Date of 1940 Referring Physician Ivy Buchanan Age 80 year(s) 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 Height: 72 inches Weight: 102.06 kg (225 lbs) BSA: 2.24 m^2 BMI: 30.52 kg/m^2 HR: 73 bpm BP: 178/79 mmHg Summary IV saline contrast injection was negative for a PFO (patent foramen ovale) at rest and post Valsalva . Normal left ventricular chamber size. No apparent segmental wall motion abnormalities. Estimated LVEF by qualitative assessment is normal (55-60%) . Grade 1 diastolic dysfunction (impaired relaxation and low-normal LA pressure). Unable to estimate peak systolic PA pressure; inadequate TR velocity signal. Previous Study Compared to the previous study there was no significant change. Signature Findings Left Ventricle Normal left ventricular chamber size. Normal wall thickness. Normal overall left ventricular systolic function. No apparent segmental wall motion abnormalities. Estimated LVEF by qualitative assessment is normal (55-60%) . Grade 1 diastolic dysfunction (impaired relaxation and low-normal LA pres sure). Left Atrium LA size is mildly enlarged . Right Ventricle Normal right ventricle structure and function. Right Atrium Normal righ t atrium. Atrial Septum IV saline contrast injection was negative for a PFO (patent foramen ovale) at rest and post Valsalva . Aortic Valve Mild AoV cusp thickening. Mitral Valve Mild MV leaflet thickening. Mild mitral annular calcification. Mild mitral regurgitation. Tricuspid Valve A trace of tricuspid regurgitation. Unable to estimate peak systolic PA pressure; inadequate TR velocity signal. Pulmonic Valve Normal PV structure and function by limited views and Doppler. Aorta Aortic root size (SInus of Valsalva diameter) is norm al . Pericardium No evidence of pericardial effusion. IVC/SVC/PA/PV/Pleural The estimated RA pressure by IVC dynamics 5-10mmHg . Chambers/Structures Left Atrium LA Dimension: 4.15 cm LA Area: 23.81 cm^2 LA Volume: 79.17 ml LA Vol. Index: 35 ml/m^2 Left Ventricle LVIDd: 5 cm LVEDV:155.16 ml LV Septum Diastolic: 1.04 cm LV PW Diastolic: 0.97 cm LVEDV Arias's:124.37 ml LVESV Arias's:54.07 ml LVEF Arias's: 56.5 % LVEDVI: 56 ml/m^2 LVESVI: 24 ml/m^ 2 LVOT Diameter: 2.32 cm Aorta Ao Root S of Wanda.: 3.49 cm Doppler/Quantitative Measurements Mitral Valve MV Peak E-Wave: 0.96 m/s MV Peak A-Wave: 1.36 m/s E/A Ratio: 0.71 Peak Gradient: 3.72 mmHg Deceleration Time: 198.1 msec MV Steven. Peak: Aortic Valve Peak Velocity: 1.3 m/s Mean Velocity: 0.87 m/s Peak Gradient: 6.73 mmHg Mean Gradient: 3.4 mmHg AV Area (continuity): 3.17 cm^2 AV VTI: 32.6 cm AV DVI: 0.75 LVOT Peak Velocity: 0.96 m/s Peak Gradient: 3.69 mmHg Mean Velocity: 0.63 m/s Mean Gradient: 1.79 mmHg LVOT Diameter: 2.32 cm LVOT VTI: 24.43 cm LVOT Area: 4.23 cm^2 LVOT SV:103.22 ml LVOT CO: 7.54 l/min LVOT CI: 3.37 l/min/m^2 Procedure Note Interface, External Ris In - 04/26/2020 12:50 PM PLANISHING HAMMER OPERATOR Transthoracic Echocardiography Report (TTE) Demographics Patient Name DEE DEE GUEVARA Date of Study 04/25/2020 RAY Gender Male Visit Number [id number] Race Unknown [facility] 2209 Number Date of 1940 Referri Physician Ivy Buchanan Age 80 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 Height: 72 inches Weight: 102.06 kg (225 lbs) BSA: 2.24 m^2 BMI: 30.52 kg/m^2 HR: 73 bpm BP: 178/79 mmHg Summary IV saline contrast injection was negati ve for a PFO (patent foramen ovale) at rest and post Valsalva . Normal left ventricular chamber size. N o apparent segmental wall motion abnormalities. Estimated LVEF by qualit ative assessment is normal (55-60%) . Grade 1 diastolic dysfunction (impaired relaxation and low-normal LA pressure). Unable to estimate peak systolic PA pre ssure; inadequate TR velocity signal. Previous Study Compared to the previous study there wa s no significant change. Signature Findings Left Ventricle Normal left vent ricular chamber size. Normal wall thickness. Faith l overall left ventricular systolic function. No lamin arent segmental wall motion abnormalities. E stimated LVEF by qualitative assessment is no rmal (55-60%) . Grade 1 diastolic dysfunction (imp aired relaxation and low-normal LA pressure). Left Atrium LA size is mildl y enlarged . Right Ventricle Normal right angeli tricle structure and function. Right Atrium Normal right atr ium. Atrial Septum IV saline contra st injection was negative for a PFO (patent foramen ovale) at rest and post Valsalva . Aortic Valve Mild AoV cusp th ickening. Mitral Valve Mild MV leaflet thickening. Mild mitral annular calcification. M ild mitral regurgitation. Tricuspid Valve A trace of tricu spid regurgitation. Unable to estima te peak systolic PA pressure; inadequate TR ve locity signal. Pulmonic Valve Normal PV struct ure and function by limited views and Doppler. Aorta Aortic root size (SInus of Valsalva diameter) is normal . Pericardium No evidence of p ericardial effusion. IVC/SVC/PA/PV/Pleural The estimated RA pressure by IVC dynamics 5-10mmHg . Chambers/Structures Left Atrium LA Dimension: 4.15 cm LA Area: 23.81 cm^2 LA Volume: 79.17 ml LA Vol. Index: 35 ml/m^2 Left Ventricle LVIDd: 5 cm LVEDV:155.16 ml LV Septum Diastolic: 1.04 cm LV PW Diastolic: 0.97 cm LVEDV Arias's:124.37 ml LVESV Arias's:54.07 ml LVEF Arias's: 56.5 % LVEDVI: 56 ml/m^2 LVESVI: 24 ml/m^2 LVOT Diameter: 2.32 cm Aorta Ao Root S of Wanda.: 3.49 cm Doppler/Quantitative Measurements Mitral Valve MV Peak E-Wave: 0.96 m/s MV P eak A-Wave: 1.36 m/s E/A Ratio: 0.71 Peak Gradient: 3.72 mmHg Dece leration Time: 198.1 msec MV Steven. Peak: Aortic Valve Peak Velocity: 1.3 m/s Mean Velocity: 0.87 m/s Peak Gradient: 6.73 mmHg Mean Gradient: 3.4 mmHg AV Area (continuity): 3.17 cm^2 AV VTI: 32.6 cm AV DVI: 0.75 LVOT Peak Velocity: 0.96 m/s Pea k Gradient: 3.69 mmHg Mean Velocity: 0.63 m/s Judith n Gradient: 1.79 mmHg LVOT Diameter: 2.32 cm LVO T VTI: 24.43 cm LVOT Area: 4.23 cm^2 LVO T SV:103.22 ml LVOT CO: 7.54 l/min LVO T CI: 3.37 l/min/m^2 Performing Organization Address City/State/Zipcode Phone Number [facility] ECHO HEARTLAB [facility]ON [facility] CTA carotid (04/25/2020 8:39 AM PLANISHING HAMMER OPERATOR) Specimen Narrative Performed At FINAL REPORT Factor 14 CT, CAROTID, ANGIO, CT, CTANGIO BRAIN BRAIN CT WITHOUT CONTRAST INDICATION: Neuro deficit, acute, stroke suspected COMPARISON: CT head of the same date TECHNIQUE: Rapid acquisition spiral images were obt ained between the aortic arch and the cranial vertex during intravenou s contrast infusion to reconstruct axial images and angiographi c 3D maximum intensity projections (MIP). 3-D volumetric reform atted images were created at a dedicated workstation. Precontrast aldair ges of the brain were also obtained. Stenosis evaluation reported in complian ce with NASCET criteria. DOSE REDUCTION: Dose modulation, iterati ve reconstruction, and/or weight-based adjustment of the mA/kV was utilized to reduce the radiation dose to as low as reasonably a chievable. FINDINGS: NECT BRAIN: Hypoattenuation within the right frontal subcortical white matter, which, in the appropriate clinical setti ng, may represent an acute versus subacute infarct. No intracranial hemorrhage, midline shift or mass effect. Midline structures are norm ally developed. Mild chronic microvascular ischemic changes of the pe riventricular and subcortical white matter are present. No hydrocephalus. Orbits are within normal limits. No obstructive paranasal sinus disease. CTA BRAIN: Internal carotid arteries: Bilateral karie cific intracranial atherosclerotic disease. Petrous, cavern ous and supraclinoid portions patent. Middle cerebral arteries: Bilateral MCA M1-M2 branches demonstrate normal contrast enhancement. Anterior cerebral arteries: Bilateral AC A A1-A2 branches demonstrate normal contrast enhancement. Basilar system: Normal contrast opacific ation of the vertebrobasilar system. 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 Venous opacification: Major dural sinuse s unremarkable for bolus timing. Additional findings: None. CTA NECK: Common carotid arteries: Moderate athero sclerotic narrowing of the right common carotid artery origin. Ther e is normal contrast opacification of the bilateral common ca rotid arteries. Cervical internal carotid arteries: Stat us post stenting of bilateral internal carotid arteries. Artifact from stent material makes evaluation of carotid narrowing inaccura te, however, bilateral internal carotid arteries are patent. Vertebral arteries: Normal contrast opac ification of the bilateral cervical vertebral arteries. Arch anatomy: Conventional. Nonvascular findings: No acute findings within the neck soft t issues. IMPRESSION: Hypoattenuation within the right frontal subcortical white matter, which, in the appropriate clinical setti ng, may represent an acute versus subacute infarct. No intracranial hemorrhage. Unremarkable CTA of the head and neck. Signed: Ludin Castanon MD Report Verified Date/Time: 04/25/2020 09:22:54 Reading Location: [facility] B1 C013V Neuro [place] [facility] Room Procedure Note Interface, External Ris In - 04/26/2020 7:28 PM PLANISHING HAMMER OPERATOR FINAL REPORT CT, CAROTID, ANGIO, CT, CTANGIO BRAIN BRAIN CT WITHOUT CONTRAST INDICATION: Neuro deficit, acute, stroke suspected COMPARISON: CT head of the same date TECHNIQUE: Rapid acquisition spiral images were obt ained between the aortic arch and the cranial vertex during intravenou s contrast infusion to reconstruct axial images and angiographi c 3D maximum intensity projections (MIP). 3-D volumetric reform atted images were created at a dedicated workstation. Precontrast aldair ges of the brain were also obtained. Stenosis evaluation reported in complian ce with NASCET criteria. DOSE REDUCTION: Dose modulation, iterati ve reconstruction, and/or weight-based adjustment of the mA/kV was utilized to reduce the radiation dose to as low as reasonably a chievable. FINDINGS: NECT BRAIN: Hypoattenuation within the right frontal subcortical white matter, which, in the appropriate clinical setti ng, may represent an acute versus subacute infarct. No intracranial hemorrhage, midline shift or mass effect. Midline structures are norm ally developed. Mild chronic microvascular ischemic changes of the pe riventricular and subcortical white matter are present. No hydrocephalus. Orbits are within normal limits. No obstructive paranasal sinus disease. CTA BRAIN: Internal carotid arteries: Bilateral karie cific intracranial atherosclerotic disease. Petrous, cavern ous and supraclinoid portions patent. Middle cerebral arteries: Bilateral MCA M1-M2 branches demonstrate normal contrast enhancement. Anterior cerebral arteries: Bilateral AC A A1-A2 branches demonstrate normal contrast enhancement. Basilar system: Normal contrast opacific ation of the vertebrobasilar system. 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 Venous opacification: Major dural sinuse s unremarkable for bolus timing. Additional findings: None. CTA NECK: Common carotid arteries: Moderate athero sclerotic narrowing of the right common carotid artery origin. Ther e is normal contrast opacification of the bilateral common ca rotid arteries. Cervical internal carotid arteries: Stat us post stenting of bilateral internal carotid arteries. Artifact from stent material makes evaluation of carotid narrowing inaccura te, however, bilateral internal carotid arteries are patent. Vertebral arteries: Normal contrast opac ification of the bilateral cervical vertebral arteries. Arch anatomy: Conventional. Nonvascular findings: No acute findings within the neck soft t issues. IMPRESSION: Hypoattenuation within the right frontal subcortical white matter, which, in the appropriate clinical setti ng, may represent an acute versus subacute infarct. No intracranial hemorrhage. Unremarkable CTA of the head and neck. Signed: Ludin Castanon MD Report Verified Date/Time: 04/25/2020 0 9:22:54 Reading Location: [facility] C013V Neuro [facility] Performing Organization Address City/State/Zipcode Phone Number Factor 14 CTA brain (04/25/2020 8:39 AM PLANISHING HAMMER OPERATOR) Specimen Narrative Performed At FINAL REPORT Factor 14 CT, CAROTID, ANGIO, CT, CTANGIO BRAIN BRAIN CT WITHOUT CONTRAST INDICATION: Neuro deficit, acute, stroke suspected COMPARISON: CT head of the same date TECHNIQUE: Rapid acquisition spiral images were obt ained between the aortic arch and the cranial vertex during intravenou s contrast infusion to reconstruct axial images and angiographi c 3D maximum intensity projections (MIP). 3-D volumetric reform atted images were created at a dedicated workstation. Precontrast aldair ges of the brain were also obtained. Stenosis evaluation reported in complian ce with NASCET criteria. DOSE REDUCTION: Dose modulation, iterati ve reconstruction, and/or weight-based adjustment of the mA/kV was utilized to reduce the radiation dose to as low as reasonably a chievable. FINDINGS: NECT BRAIN: Hypoattenuation within the right frontal subcortical white matter, which, in the appropriate clinical setti ng, may represent an acute versus subacute infarct. No intracranial hemorrhage, midline shift or mass effect. Midline structures are norm ally developed. Mild chronic microvascular ischemic changes of the pe riventricular and subcortical white matter are present. No hydrocephalus. Orbits are within normal limits. No obstructive paranasal sinus disease. CTA BRAIN: Internal carotid arteries: Bilateral karie cific intracranial atherosclerotic disease. Petrous, cavern ous and supraclinoid portions patent. Middle cerebral arteries: Bilateral MCA M1-M2 branches demonstrate normal contrast enhancement. Anterior cerebral arteries: Bilateral AC A A1-A2 branches demonstrate normal contrast enhancement. Basilar system: Normal contrast opacific ation of the vertebrobasilar system. 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 Venous opacification: Major dural sinuse s unremarkable for bolus timing. Additional findings: None. CTA NECK: Common carotid arteries: Moderate athero sclerotic narrowing of the right common carotid artery origin. Ther e is normal contrast opacification of the bilateral common ca rotid arteries. Cervical internal carotid arteries: Stat us post stenting of bilateral internal carotid arteries. Artifact from stent material makes evaluation of carotid narrowing inaccura te, however, bilateral internal carotid arteries are patent. Vertebral arteries: Normal contrast opac ification of the bilateral cervical vertebral arteries. Arch anatomy: Conventional. Nonvascular findings: No acute findings within the neck soft t issues. IMPRESSION: Hypoattenuation within the right frontal subcortical white matter, which, in the appropriate clinical setti ng, may represent an acute versus subacute infarct. No intracranial hemorrhage. Unremarkable CTA of the head and neck. Signed: Ludin Castanon MD Report Verified Date/Time: 04/25/2020 09:22:54 Reading Location: [address] Procedure Note Interface, External Ris In - 04/26/2020 7:44 PM PLANISHING HAMMER OPERATOR FINAL REPORT CT, CAROTID, ANGIO, CT, CTANGIO BRAIN BRAIN CT WITHOUT CONTRAST INDICATION: Neuro deficit, acute, stroke suspected COMPARISON: CT head of the same date TECHNIQUE: Rapid acquisition spiral images were obt ained between the aortic arch and the cranial vertex during intravenou s contrast infusion to reconstruct axial images and angiographi c 3D maximum intensity projections (MIP). 3-D volumetric reform atted images were created at a dedicated workstation. Precontrast aldair ges of the brain were also obtained. Stenosis evaluation reported in complian ce with NASCET criteria. DOSE REDUCTION: Dose modulation, iterati ve reconstruction, and/or weight-based adjustment of the mA/kV was utilized to reduce the radiation dose to as low as reasonably a chievable. FINDINGS: NECT BRAIN: Hypoattenuation within the right frontal subcortical white matter, which, in the appropriate clinical setti ng, may represent an acute versus subacute infarct. No intracranial hemorrhage, midline shift or mass effect. Midline structures are norm ally developed. Mild chronic microvascular ischemic changes of the pe riventricular and subcortical white matter are present. No hydrocephalus. Orbits are within normal limits. No obstructive paranasal sinus disease. CTA BRAIN: Internal carotid arteries: Bilateral karie cific intracranial atherosclerotic disease. Petrous, cavern ous and supraclinoid portions patent. Middle cerebral arteries: Bilateral MCA M1-M2 branches demonstrate normal contrast enhancement. Anterior cerebral arteries: Bilateral AC A A1-A2 branches demonstrate normal contrast enhancement. Basilar system: Normal contrast opacific ation of the vertebrobasilar system. 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 Venous opacification: Major dural sinuse s unremarkable for bolus timing. Additional findings: None. CTA NECK: Common carotid arteries: Moderate athero sclerotic narrowing of the right common carotid artery origin. Ther e is normal contrast opacification of the bilateral common ca rotid arteries. Cervical internal carotid arteries: Stat us post stenting of bilateral internal carotid arteries. Artifact from stent material makes evaluation of carotid narrowing inaccura te, however, bilateral internal carotid arteries are patent. Vertebral arteries: Normal contrast opac ification of the bilateral cervical vertebral arteries. Arch anatomy: Conventional. Nonvascular findings: No acute findings within the neck soft t issues. IMPRESSION: Hypoattenuation within the right frontal subcortical white matter, which, in the appropriate clinical setti ng, may represent an acute versus subacute infarct. No intracranial hemorrhage. Unremarkable CTA of the head and neck. Signed: Ludin Castanon MD Report Verified Date/Time: 04/25/2020 0 9:22:54 Reading Location: [address] Performing Organization Address City/State/Zipcode Phone Number GE RIS SARS-CoV2/RT-PCR (Asymptomatic ONLY) (04/25/2020 5:34 AM PLANISHING HAMMER OPERATOR) SARS-COV2/RT-PCR Negative Not Detected, [facility] Negative, See [facility] external report CENTER for linked test SARS-COV-2 [facility] PERFORMING LAB [facility] Specimen Other - Nasopharyngeal wall structure (b vanita structure) Narrative Performed At Negative result for this test determines that [facility] SARS-CoV-2 RNA was not present in the specimen above the Limit of Detection (LOD). However, Negative results do not preclude SARS-CoV-2 infection and should not be used as the sole basis for treatment or patient management decisions. Negative results must be combined with clinical observations, patient history, and epidemiological information. A false negative result may occur if a specimen is improperly collected, transported or handled. A false negative result should be considered if patient's recent exposures or clinical presentation indicate that COVID-19 (SARS-CoV-2) is likely and diagnostic tests for other causes of illness are negative. Re-testing should be considered in cases of suspected false negatives. The limit of detection for this assay is 100 copies/mL. This SARS CoV-2 test is a real-time RT-PCR test intended for the qualitative detection of nucleic acid from SARS-CoV-2 in a nasopharyngeal swab specimen collected from individuals suspected of COVID-19 by their healthcare provider. This test has not been Food and Drug Administration (FDA) cleared or approved. This is a modified version of an approved Emergency Use Authorization (EUA) and is in the process of review by the FDA. Once authorized by the FDA, the issued EUA will be effective until the declaration that circumstances exist justifying the authorization of the emergency use of in vitro diagnostic tests for detection and/or diagnosis of COVID-19 is terminated under Section 564(b)(2) of the Act or the EUA is revoked under Section 564(g) of the Act. Testing was performed using the [employer] SARS-CoV-2 assay. Fact Sheet for Healthcare Providers: https://www.molecular.nunes/ace/HM_LTSH-SbW-3 _HCP_Fact_Sheet_51-593361.pdf Fact Sheet for Healthcare Patients: https://www.molecular.nunes/ace/VN_RRIH-LzJ-9 _Patient_Fact_Sheet_EN_51-442392E2.pdf Performing Laboratory: [address] [place] [address] Performing Organization Address City/State/Zipcode Phone Number [address] [address] CENTER Hemoglobin A1c (04/25/2020 12:41 AM PLANISHING HAMMER OPERATOR) Pathologist Sig nature Hemoglobin A1C 6.7 (H) 4.3 - 6.1 % [facility] Specimen Blood Performing Organization Address [facility]/Zipcode Phone Number [address] [address] [place] Lipid panel (04/25/2020 12:41 AM PLANISHING HAMMER OPERATOR) Pathologist Sig nature Triglycerides 219 mg/dL [facility] Cholesterol 116 mg/dL [facility] [place] HDL 33 mg/dL [facility] [place] LDL Calculated 39 mg/dL [facility] [place] Specimen Blood Narrative Performed At Triglyceride Reference Range: [facility] Low Risk <150 Borderline 150-199 High Risk 200-499 Very High Risk >=500 Cholesterol Reference Range: Low Risk <200 Borderline 200-239 High Risk >240 HDL Cholesterol Reference Range: Low Risk >=60 High Risk <40 LDL Cholesterol Reference Range: Optimal <100 Near Optimal 100-129 Borderline 130-159 High 160-189 Very High >=190 De Icer Element Winder ID - DB Performing Organization Address [facility]/Zipcode Phone Number [address] [address] [place] Vitamin B12 and Folate (04/25/2020 12:40 AM PLANISHING HAMMER OPERATOR) Pathologist Sig nature Vitamin B12 202 (L) 213 - 816 pg/mL [facility] Folate 15.40 >=7.00 ng/mL [facility] Specimen Blood Narrative Performed At De Icer Element Winder ID - [facility] Performing Organization Address City/[facility]/Zipcode Phone Number [address] [address] CENTER TSH/Free T4 If Indicated (04/25/2020 12:40 AM PLANISHING HAMMER OPERATOR) Pathologist Sig nature TSH 0.559 0.350 - 4.940 uIU/mL [facility] Specimen Blood Narrative Performed At De Icer Element Winder ID - [facility] Performing Organization Address City/State/Zipcode Phone Number [facility] [address] [place], [place] [phone] CENTER after 06/07/2019 Insurance Payer Benefit Plan Subscriber ID Effective Phone Address Typ e / Group Dates AETNA - AETNA [id number] 2017-Pres [phone] [address] [employer] MEDICARE MGD MEDICARE HMO ent [id number] [place] [address] Advance Directives For more information, please contact: [phone] Code Status Date Activated Date Inactivated Comments Full Code 04/24/2020 3:56 PM 04/26/2020 6:45 PM This code status was determined by: Patient Full Code 04/06/2018 4:18 PM 04/07/2018 6:24 PM This code status was determined by: Patient Full Code 02/25/2015 5:45 AM 02/26/2015 2:56 PM This code status was determined by: Patient
--- OUTSIDE RECORDS SUMMARY | 2020-06-07 16:26 | XMS REPORT | Summary of Care ---
:1940 Author Organization [facility] [place] [address] Care Team Providers Name Role Phone Inc, Plus Supplies Unavailable Nadia Mi Primary Care Provider Reason for Visit Reason Comments Follow Up hospitalization Consult, Test & Treat (Routine) Status Reason Specialty Diagnoses / Referred By Referred To Procedures Contact Contact Authorization Not Neurology Procedures Antoni Mi Annise, Needed NEW OFFICE VISIT 210 AMANDA GALEANO MD - NEURO [address] [address] [facility] [address] [address] Phone: [place], [place] [phone] Fax: Encounter Details Date Type Department Care Team Description 05/25/2020 Office Visit [facility] Dipti Echavarria MD Follow Up Medicine Neurology [address] [facility] (hospitalization) [address] [facility], [address] [place] [address] [place], [place] [phone] Allergies Active Allergy Reactions Severity Noted Date Comments Codeine Nausea And Vomiting, Rash 02/24/2015 "m akes skin crawl" documented as of this encounter (statuses as of 05/25/2020) Medications Medication Sig Dispensed Refills Start Date End Date Status citalopram (CELEXA) 40 MG Take 40 mg by 0 Active tabletIndications: mouth daily. Encounter to establish care with new doctor Levothyroxine Sodium 125 Take 125 mg by 0 Active MCG CAPSIndications: mouth daily. Encounter to establish care with new doctor lisinopril (PRINIVIL, Take 40 mg by 0 Active ZESTRIL) 40 MG mouth daily. tabletIndications: Encounter to establish care with new doctor Magnesium Oxide Take 40 mg by 0 Active (MAG-OXIDE mouth daily. OR)Indications: Encounter to establish care with new doctor metformin (GLUCOPHAGE) Take 1,000 mg 0 Active 1000 MG by mouth daily. tabletIndications: Encounter to establish care with new doctor Aspirin (ASPIR-81) 81 MG Take 81 mg by 0 Active TBECIndications: mouth daily. Encounter to establish care with new doctor Cyanocobalamin (B-12) Take 2,000 mg 0 Active 2000 MCG TABSIndications: by mouth daily. Encounter to establish care with new doctor Cholecalciferol (D3-1000) Take 1,000 mg 0 Active 1000 UNITS by mouth daily. CAPSIndications: Encounter to establish care with new doctor furosemide (LASIX) 20 MG Take 1 Tab by 30 Tab 1 05/30/2017 Active tabletIndications: mouth daily. Coronary artery disease involving coronary bypass graft of [place] heart without angina pectoris, Essential hypertension, MOE (dyspnea on exertion) glimepiride (AMARYL) 2 MG TAKE 1 TABLET 0 07/19/2017 Active tablet BY MOUTH ONCE DAILY atorvastatin (LIPITOR) 80 TAKE 1 TAB BY 30 Tab 0 10/31/2018 Active MG tabletIndications: MOUTH DAILY. Coronary artery disease involving coronary bypass graft of [place] heart without angina pectoris, Dyslipidemia, On statin therapy metoprolol (TOPROL-XL) 25 TAKE 1 TABLET 30 Tab 1 11/20/2019 Active MG XL tabletIndications: BY MOUTH EVERY Coronary artery disease DAY involving coronary bypass graft of kar[place] heart without angina pectoris Additional Information Patient not taking. Reason: Patient's preference, Reported on 05/25/2020 TRESIBA 100 UNIT/ML SOLN 0 10/27/2019 Active amlodipine (NORVASC) 5 MG TAKE 1 TABLET BY MOUTH 90 Tablet 0 1 07/04/2019 Active tabletIndications: Essential EVERY DAY hypertension clopidogrel (PLAVIX) 75 MG Take 75 mg by mouth 0 Active Tablet daily. Dulaglutide (TRULICITY) 1.5 Inject into the skin. 0 Active MG/0.5ML SOPN nitroglycerin (NITROSTAT) Place 0.4 mg under the 0 Active 0.4 mg sublingual tablet tongue once. Place one tablet under tongue for chest pain. Repeat every 5 minutes for a total of three pills in 15 minutes PRN persistent chest pain. documented as of this encounter (statuses as of 05/25/2020) Active Problems Problem Noted Date ALLIE (obstructive sleep apnea) 05/30/2017 Hypothyroidism 04/25/2017 On statin therapy 04/25/2017 Fatigue 04/25/2017 MOE (dyspnea on exertion) 04/25/2017 CAD (coronary artery disease) 11/01/2016 Hypertension 11/01/2016 Dyslipidemia 11/01/2016 Snoring 11/01/2016 Obesity 11/01/2016 documented as of this encounter (statuses as of 05/25/2020) Immunizations Name Administration Dates Next Due Influenza Hd 03/04/2020 documented as of this encounter Social History Tobacco Use Types Packs/Day Years Used Date Former Smoker Smokeless Tobacco: Former User Alcohol Use Drinks/Week oz/Week Comments Yes 2 Sex Assigned at Date Recorded Not on file documented as of this encounter Last Filed Vital Signs Vital Sign Reading Time Taken Comments Blood Pressure 160/85 05/25/2020 8:52 AM CONSUMER BANKER Pulse 64 05/25/2020 8:52 AM CONSUMER BANKER Temperature - - Respiratory Rate - - Oxygen Saturation - - Inhaled Oxygen Concentration - - Weight 104.3 kg (230 lb) 05/25/2020 8:52 AM CONSUMER BANKER Height 188 cm (6' 2") 05/25/2020 8:52 AM CONSUMER BANKER Body Mass Index 29.53 05/25/2020 8:52 AM CONSUMER BANKER documented in this encounter Patient Instructions Patient InstructionsDipti Ash MD - 05/25/2020 9:30 AM CSTBlood Tests for Memory - Continue B12 supplement - Blood pressure management- discuss with Dr. Mi - Diabetes management - Continue aspirin and plavix Continue atorvastatin - CPAP- [email or web address] for masks. Notify the clinic. Dr. Byersectronically signed by Dipti Ash MD at 05/25/2020 10:05 AM CONSUMER BANKER documented in this encounter Progress Notes Dipti Ash MD - 05/25/2020 9:30 AM CST CC: Chief Complaint Patient presents with Follow Up hospitalization Referred by: Antoni Mi Accompanied by: self HPI: 80 y.o.male with CAD, DM, HTN, HLD, Hypothyroidism, ALLIE presenting after hospitalization for stroke. He feels back to his prior baseline. Stroke onset: 04/23/20. TPA/IAT not pursued as pt outside of window MRB/HCT/Vascular imaging: see below TTE: with G1DD + mildly enlarged LA Holter/Loop:+loop recorder Antiplatelet/AC: ASA- Plavix Lipid: atorva 40mg (LDL 39) BP: lisinopril (SBP 180 at OSH) DM: A1c 6.7 Sleep: +ALLIE not on CPAP (DME MPS) PT/OT/Speech: cleared +B12 supplementation as level 212 TSH 0.5 [facility]: "presents on 04/24/20 as transfer from [facility] for evaluation of R facial droop, and RUE numbness. Patient reports R lip droop and numbness and R arm numbness upon waking up at 7AM 04/23, LKN about 8 hours prior. Arrived to OSH with SBP 180, OOW for tPA, low NIHSS of 2. CTH showed 2.1 cm R frontal lobe density c/f subacute stroke. MRA showed severe stenosis of b/l ICA and moderate narrowing of R M2. Symptoms gradually resolved in the afternoon on 04/23. Arrived to [facility] asymptomatic. Also MRIfrom OSH record showed acute infarct in L COLLECTOR territory. Per OSH records, patient's had reported patient currently suffering from dementia with progressively worsening memory. Patient is independent at baseline, states he cares for his who has suffered a stroke. Patient takes ASA and Plavix, states has been taking for unclear amount of time but his last stent was placed in 2018" Cognition stable per pt PMH/PSH: Past Medical History: Diagnosis Date CAD (coronary artery disease) Diabetes mellitus (HCCode) Dyslipidemia Hx of arterial ischemic stroke 8 yearsa ago Hypertension Hypothyroidism ALLIE (obstructive sleep apnea) Per sleep study Apr 2017 Past Surgical History: Procedure Laterality Date HX CAROTID ENDARTERECTOMY HX CORONARY ARTERY BYPASS GRAFT 1996 HX CORONARY STENTING 2015 HX CORONARY STENTING 03/2018 Prox LAD ROS: General: no fevers or chills, no heat or cold intolerance, no subjective weight loss, no fatigue HEENT: no changes in vision, no sore throat, +changes in hearing (chronic), no tinnitus, no nasal drainage CV: no chest pain, no palpitations, no lightheadedness, no PND, no orthopnea, no LE swelling, no claudication Pulm: no shortness of breath, no cough, no hemoptysis GI: no nausea, no vomiting, no abdominal pain, no constipation, no diarrhea, no melena, no hematochezia, no dysphagia, no heartburn Skin: no rash Neuro: see HPI Musculoskeletal: no neck pain, no back pain Heme: no easy bruising, no bleeding from the gums Endo: No polyuria or polydypsia Psych: no depression or anxiety Meds/All: Current Outpatient Medications on File Prior to Visit Medication Sig Dispense Refill amlodipine (NORVASC) 5 MG tablet TAKE 1 TABLET BY MOUTH EVERY DAY 90 Tablet 0 Aspirin (ASPIR-81) 81 MG TBEC Take 81 mg by mouth daily. atorvastatin (LIPITOR) 80 MG tablet TAKE 1 TAB BY MOUTH DAILY. 30 Tab 0 Cholecalciferol (D3-1000) 1000 UNITS CAPS Take 1,000 mg by mouth daily. citalopram (CELEXA) 40 MG tablet Take 40 mg by mouth daily. clopidogrel (PLAVIX) 75 MG Tablet Take 75 mg by mouth daily. Cyanocobalamin (B-12) 2000 MCG TABS Take 2,000 mg by mouth daily. Dulaglutide (TRULICITY) 1.5 MG/0.5ML SOPN Inject into the skin. furosemide (LASIX) 20 MG tablet Take 1 Tab by mouth daily. 30 Tab 1 glimepiride (AMARYL) 2 MG tablet TAKE 1 TABLET BY MOUTH ONCE DAILY 0 Levothyroxine Sodium 125 MCG CAPS Take 125 mg by mouth daily. lisinopril (PRINIVIL, ZESTRIL) 40 MG tablet Take 40 mg by mouth daily. Magnesium Oxide (MAG-OXIDE OR) Take 40 mg by mouth daily. metformin (GLUCOPHAGE) 1000 MG tablet Take 1,000 mg by mouth daily. metoprolol (TOPROL-XL) 25 MG XL tablet TAKE 1 TABLET BY MOUTH EVERY DAY (Patient not taking: Reported on 05/25/2020) 30 Tab 1 nitroglycerin (NITROSTAT) 0.[address] 0.4 mg under the tongue once. Place onetablet under tongue for chest pain. Repeat every 5 minutes for a total of three pills in 15 minutes PRN persistent chest pain. TRESIBA 100 UNIT/ML SOLN No current facility-administered medications on file prior to visit. Luz FH: Parents: Heart disease Siblings: Heart disease Son: HTN SH: Marital status: Number of children: 4 Smoking status: Former Smoker Smokeless tobacco: Former User Alcohol use: Yes Comment: 2-3/wk Drug use: No Exam: Vitals: 05/25/20 0852 BP: 160/85 BP Location: left arm Patient Position: Sitting Cuff Size: regular Pulse: 64 Weight: 230 lb (104.3 kg) Height: 6' 2" (1.88 m) Body mass index is 29.53 kg/m. Gen: awake, alert, NAD Neuro: - HIF: Language/speech fluent and appropriate. Oriented to person/place/time. Follows all commands. - CN: Pupils 4->3mm bilat to light with no APD; EOMI; V1-3 intact, R NLF flattening, hearing diminished (hearing aid missing), palate/tongue midline. Traps/SCM intact. - M: Nml bulk/tone. No pronator drift. - LUE: shoulder abduction 5/5, elbow flexion 5/5, elbow extension 5/5, wrist flexion 5/5, wrist extension 5/5, arrt technologist strength 5/5 - RUE: shoulder abduction 5-/5, elbow flexion 5-/5, elbow extension 5-/5, wrist flexion 5/5, wrist extension 5/5, arrt technologist strength 5/5 - LLE: hip flexion 5/5 , knee flexion 5/5, knee extension 5/5, ankle flexion 5/5, ankle extension 5/5 - RLE: hip flexion 5/5 , knee flexion 5/5, knee extension 5/5, ankle flexion 5/5, ankle extension 5/5 - S: diminished to pin L gomes, vib diminished at ankles L>R - R: Triceps, biceps, brachioradialis 2+ BL. Patellars 2+, Achilles 1+ BL. No clonus. Plantar flexion bilat. - C/G: Narrow based gait, intact to tandem; intact FNF, HKS, LYNNE, Romberg neg Labs/Imaging: MRB 04/2020: Acute infarcts of the medial left temporal lobe and right frontal subcortical white matter. No hemorrhagic conversion or significant mass effect. CTA H&N 04/2020: Unremarkable CTA of the head and neck. TTE: IV saline contrast injection was negative for a PFO (patent foramen ovale) at rest and post Valsalva . Normal left ventricular chamber size. No apparent segmental wall motion abnormalities. Estimated LVEF by qualitative assessment is normal (55-60%) . Grade 1 diastolic dysfunction (impaired relaxation and low-normal LA pressure). Unable to estimate peak systolic PA pressure; inadequate TR velocity signal. A/P: 80 y.o.m with CAD, DM, HTN, HLD, Hypothyroidism, ALLIE presenting after hospitalization for stroke. He feels back to baseline. - Continue ASA/Plavix - Continue statin - BP discussed (to be managed by PCP) - DM management - Loop recorder - PAP usage advised - Pt to look into new masks - Will discuss cognitive testing at the next visit - Reversible dementia labs ordered - Continue B12 Patient verbalized understanding of these issues, agrees with the plan and all questions were answered today. Patient was given an opportunity to voice any other symptoms or concerns not listed above. Patient did not have any other symptoms or concerns. Patient told to return in 6-12 months. Patient instructed to stop at front desk manager to schedule appointment before leaving today. I personally spent a total of 60 minutes with the patient/reviewing the chart with > 50% spent incounseling and coordination of care. A discussion regarding diagnosis and treatment options was held. Dipti Ash MD documented in this encounter Plan of Treatment Date Type Specialty Care Team Description 05/26/2020 Procedure Visit-Tech Cardiology Performed 05/26/2020 Office Visit Cardiology Sirisha Sanderson MD [address] [place], [place] [address] [phone] 06/02/2020 Telemedicine Cardiology Ciara Delgado MD [address] [facility] [address] [place], [place] [address] [phone] Name Type Priority Associated Diagnoses Order S chedule RPR NON-REFLEX QUALITATIVE Lab Routine Cognitive impa irment Ordered: 05/25/2020 SEDIMENTATION RATE MODIFIED Lab Routine Cognitive imp airment Ordered: 05/25/2020 WESTERGREN AMMONIA Lab Routine Cognitive impairment Ordered : 05/25/2020 VITAMIN B12 Lab Routine B12 deficiency Ordered: 05/25/2020 Cognitive impairment VITAMIN B1 Lab Routine Cognitive impairment Ordered : 05/25/2020 Health Maintenance Due Date Last Done Comments TETANUS SHOT (ADULT) 1957 ANNUAL DIABETIC FOOT EXAM 1960 ANNUAL DIABETIC RETINOPATHY 1960 SCREENING BMI FOLLOW UP PLAN 1960 HEPATITIS C SCREENING 1960 ZOSTER VACCINE (1 of 2) 1992 FALL SCREEN 2007 PNEUMOVAX >=65 (PPSV23) 2007 MEDICARE AWV (Initial) 05/17/2017 FLU VACCINE > 6 MONTHS Completed 03/04/2020 HPV VACCINE Aged Out No longer eligib le based on patient's age to complete this topic documented as of this encounter Results Not on filedocumented in this encounter Visit Diagnoses Diagnosis Acute ischemic stroke (HCCode) - Primary Unspecified cerebral artery occlusion wi th cerebral infarction ALLIE (obstructive sleep apnea) Obstructive sleep apnea (adult) (pediatr ic) Status post placement of implantable loo p recorder Essential hypertension Unspecified essential hypertension B12 deficiency Other B-complex deficiencies Cognitive impairment Unspecified persistent mental disorders due to conditions classified elsewhere documented in this encounter Insurance Payer Benefit Plan / Subscriber ID Effective Dates Phone Addre ss Type Group [employer] MEDICARE PLAN HMO [id number] 2017-Present [address] [place] [address] documented as of this encounter
--- OUTSIDE RECORDS SUMMARY | 2020-06-07 16:26 | XMS REPORT ---
:1940 Author Organization [facility] Address [address] [facility] [address] [place] [address] Care Team Providers Name Role Phone Mi Unavailable [phone] PROBLEMS Type Condition ICD9-CM [id number] Onset Condition SNOMED Code Notes Code Code Dates Status Problem Hyperlipidemia, E78.5 Active 10870814 unspecified Problem Acquired E03.9 Active 960644671 hypothyroidism Problem Depression F32.9 Active 40540241 Problem Obesity (BMI E66.9 Active 867538646901292 30.0-34.9) Problem Essential I10 Active 88967557 hypertension Problem Hypothyroidism E03.9 Active 32935242 Problem Type 2 diabetes E11.65 Active 764929870633067 mellitus with hyperglycemia Problem Type 2 diabetes E11.69 Active 41258914 mellitus with other specified complication Problem Type 2 diabetes E11.69 Active 06395366 mellitus with other specified complication, unspecified whether terminal gauger supervisor insulin use Problem 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 264191090 failure, unspecified HF chronicity Problem Bilateral carotid I65.23 Active 458145089 artery occlusion Problem 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 87636152 mellitus with diabetic chronic kidney disease Problem Coronary artery I25.118 Active 65784532 disease involving [place] cross heart with other form of angina pectoris, unspecified vessel or lesion type Problem CVA (cerebral I63.9 Active 113850263 infarction) Problem Type 2 diabetes E11.59 Active 05745791 mellitus with other circulatory complications Problem Chronic heart I50.9 Active 87372395 failure, unspecified heart failure type Problem Hypertension due I15.2 Active 504764617 to endocrine disorder Problem residential Z79.4 Active 556618815 (current) use of insulin Problem Chronic kidney N18.3 Active 905456688 disease, stage 3 (moderate) ALLERGIES Allergen (clinical drug Drug/Non Drug Allergy Reaction Allergy Type Onset Date Status ingredient) documented on EMR Codeine Phosphate([facility] hives Drug Allergy A ctive Code:[address]-93) ENCOUNTERS from 1940 to 2020-05-02 Encounter Location Date Provider Diagnosis [facility] [address] Apr, 2020 Antoni Mi CVA (cerebral [facility] [place], [place] infarcti on) I63.9 [id number] IMMUNIZATIONS Vaccine Route Administration Date Status FLUZONE HIGH DOSE OVER 65 IM Intramuscular Mar 04, 2020 Admin istered SOCIAL HISTORY Tobacco Use: Social History Observation Description Date Details (start date - stop date) Former Smoker Sex Assigned At : Social History Observation Description Sex Assigned At Unknown Alcohol Screen Question Answer Notes Did you have a drink containing alcohol in the past Yes year? Points 1 Interpretation Negative How often did you have a drink containing alcohol in Monthly or less (1 point) the past year? Tobacco Use/Smoking Question Answer Notes Are you a former smoker REASON FOR REFERRAL No Information VITAL SIGNS Height 72 in Apr, Weight 226.0 lbs Apr, Temperature 97.2 degrees Fahrenheit Apr, BMI 30.65 kg/m2 Apr, Oximetry 98 % Apr, Respiratory Rate 18 /min Apr, Blood pressure systolic 145 mm Hg Apr, Blood pressure diastolic 65 mm Hg Apr, MEDICATIONS Medication SIG (Take, Route, Start Date End Date Status Frequency, Duration) Amlodipine Besylate 5 MG TAKE 1 TABLET BY MOUTH Active EVERY DAY Oral for 90 Dulaglutide 1.5 MG/0.5ML as directed Subcutaneous Feb, 27 M , 2020 Active once weekly for 30 days Terbinafine HCl 250 MG 1 tablet Orally Once a Feb, 9 Dec, 2 020 Active day for 84 days Metformin HCl 1000 MG TAKE 1 TABLET BY MOUTH Active TWICE A DAY Oral for 90 Tresiba 100 UNIT/ML 15 UNITS INJECT BELOW THE Active SKIN NIGHTLY Subcutaneous for 90 Atorvastatin Calcium 80 MG TAKE 1 TABLET BY MOUTH Active EVERY DAY IN THE EVENING Oral for 90 BD Pen Needle Yumiko U/F 32G USE PEN NEEDLES Active X 4 MM DIRECTED WITH JARED for 30 Clopidogrel Bisulfate 75 MG TAKE 1 TABLET BY MOUTH Active EVERY DAY Oral for 90 Furosemide 20 MG TAKE 1 TABLET BY MOUTH A ctive EVERY DAY Oral for 90 Terbinafine HCl 250 MG 1 tablet Orally Once a 17 Feb, 2020 9 Dec, 2 020 Active day for 84 days Citalopram Hydrobromide 20 TAKE 1 TABLET BY MOUTH Active MG EVERY DAY IN THE MORNING Oral for 90 Lisinopril 40 MG TAKE 1 TABLET BY MOUTH A ctive TWICE A DAY Oral for 90 Magnesium 500 MG 1 capsule Orally Once a Active day Levothyroxine Sodium 125 TAKE 1 TABLET BY MOUTH Active MCG EVERY DAY Oral for 90 PROCEDURES No Information RESULTS No Results REASON FOR VISIT Possible Stroke, Released 04/26/20, Unruly, Needs Referrals to Marjorie NUÑEZ [phone] & Sunday Ash, both [facility] MEDICAL (GENERAL) HISTORY Type Description Date Medical History Type 2 diabetes mellitus with hyperglyce dom Medical History Insulin long-term use Medical History Essential hypertension Medical History Hyperlipemia Medical History Depression Medical History Hypothyroidism Surgical History bypass 2000 Surgical History BL carotid stents 2001 Goals Section No Information Health Concerns No Information MEDICAL EQUIPMENT No Information MENTAL STATUS No Information FUNCTIONAL STATUS No Information ASSESSMENTS Encounter Date Diagnosis Notes Apr, CVA (cerebral infarction) (ICD-10 - I63. 9) PLAN OF TREATMENT Treatment Notes Assessment Notes Clinical Notes CVA (cerebral infarction) 80 M hx CAD on DAPT, CHF, atrial a penage s/p clip, IDDMII, HTN, hypothyroidism presen ts for f/u for hospitalization last week fo r cryptogenic stroke s/p loop recorder imp lant needs referral to EP and Neuro f/u. Symp toms resolved.MRI showed left MCA teritory ac washoe infarct, MRA head/neck wnl, TTE bubble s tudy neg with EF 60-65%.currently stable, no medication changes at this time.-continu e high intensity statin, DAPT and goal A1C < 7-will refer pt to EP and neuro as specified. Insurance Providers Payer Name Payer Payer Insured Patient Coverage Coverage End Address Phone Name Relationship to Start Date Dave e Insured [employer] [phone] Leah Guevara self MEDICARE [id number] [place] [address]
--- OUTSIDE RECORDS SUMMARY | 2020-06-07 16:26 | XMS REPORT | Continuity of Care Document ---
:1940 Author Organization [facility] t Address [address] [place] [place] [address] Care Team Providers Name Role Phone Liokostas Primary Care Physician Mihir REYNA Attending Clinician Jewel REYNA Attending Clinician JEWEL Attending Clinician Unavailable Danny REYNA Attending Clinician Osei De Leon MD Attending Clinician Only, Test Attending Clinician Unavailable Casi GALVAN Attending Clinician Unavailable JEWEL Admitting Clinician Unavailable Osei De Leon MD Admitting Clinician ROB GREEN Admitting Clinician Unavailable Payers Payer Name Policy Type Policy Effective Date Expiration Date Sour ce Number AETNA - MEDICARE [id number] 2017 [place] Jj ukes MGD CAREAETNA 00:00:00 - Medical MEDICARE O Center [id number] [address] Contracted Problems Condition Condition Condition Status Onset Resolution Last Treating Co mments Source Name Details Category Date Date Treatment Clinician Date Weakness Weakness Disease Active 2019-06 [place] mcdonough 06-24 [facility] Angina at Angina at Disease Active 2017-[address] [facility] rest rest 0-20 [facility] - 00:[facility]: Medical 00 Center Syncope, Syncope, Disease Active 2017-06 [facility] unspecifie unspecifie 0-16 Sarah kes - d syncope d syncope 00:00: Medi karie type type 00 Center CAD CAD Disease Active [facility] (coronary (coronary 9- Luke [facility] - artery artery 00:00: Medical disease) disease) 00 Center Allergies, Adverse Reactions, Alerts Allergy Allergy Status Severity Reaction(s) Onset Inactive Treating Comm ents Source Name Type Date Date Clinician Luz Propensi Active "makes [facility] ty to 02-24 skin [facility] - adverse 00:00: crawl" Medical reaction 00 [place] Codeine Adverse Active hives [facility] Phosphat Reaction [facility] Social History Social Habit Start Date Stop Date Quantity Comments Source Alcohol Comment occasionally [facility] Sex Assigned At [facility] Alcohol intake 2018-04-08 2018-04-08 Current drinker of [facility] - 00:00:00 00:00:00 alcohol (finding) [facility] Smoking Status Start Date Stop Date Source Former smoker 2018-04-08 00:00:00 2018-04-08 00:00:00 [facility] Medications Ordered Filled Start Stop Current Ordering Indication Dosage Frequency Signature Comments Components Source Medication Medication Date Date Medication? Clinician (SIG) Name Name gemfibrozil 2019-06 Yes 600mg Q.5D Take [address] (LOPID) 600 1-09 mg by [facility] - MG tablet 16:45: mouth 2 Medic al 55 (two) Center times daily. magnesium 2019-06 Yes 400mg QD Take [address] oxide 1-09 mg by [facility] - (MAG-OX) 16:45: mouth Medical 400 mg 55 daily. Center tablet metoprolol 2019-06 Yes 50mg QD Take [address] (LOPRESSOR) 1-09 by mouth Luke s - 100 MG 16:45: daily Pt Medical tablet 55 takes 50 Center mg (1/2 of 100 mg tab) QD. levothyroxi 2019-06 Yes 125ug QD Take [address] ne 1-09 mcg by [facility] - (SYNTHROID, 16:45: mouth Medic al LEVOTHROID) 55 daily. Center 125 MCG tablet lisinopril 2019-06 Yes 40mg Q.5D Take [address] (PRINIVIL,Z 06-26 by mouth 2 Sarah kes - ESTRIL) 40 16:45: (two) Medica l MG tablet 55 times Center daily. glimepiride 2019-06 Yes 2mg Take [address] (AMARYL) 2 09 by mouth [facility] - MG tablet 16:45: every Medical 55 morning Center before breakfast. furosemide 2019-06 Yes 20mg QD Take [address] (LASIX) 20 06-26 by mouth [facility] - MG tablet 16:45: daily. Medica l 55 [place] aspirin 81 2019-06 Yes 81mg QD Take [address] MG EC 06-26 by mouth [facility] - tablet 16:45: daily. Medical [address] [place] [address] metFORMIN 2019-06 Yes 1000mg Take 1,[address] [facility] (GLUCOPHAGE 1-09 mg by [facility] - ) 1000 MG 16:45: mouth 2 Medic al tablet 55 (two) Center times daily with breakfast and dinner. terbinafine 2019-06 Yes 250mg QD Take [address] HCL 1-09 mg by [facility] - (LamiSIL) 16:45: mouth Medical 250 mg 55 daily. [place] tablet clopidogreL 2019-06 Yes 75mg QD Take [address] (PLAVIX) 75 09 by mouth Luke s - mg tablet 16:45: daily. Medica l [address] [place] [address] amLODIPine 2019-06 Yes 5mg QD Take [address] (NORVASC) 09 by mouth [facility] - 10 MG 16:45: daily. Medical tablet [address] [place] [address] atorvastati 2019-06 Yes 80mg QD Take [address] n (LIPITOR) 09 by mouth Luke s - 80 MG 16:45: daily. Medical tablet 55 [place] citalopram 2019-06 Yes 20.5mg QD Take 20.[address] (CeleXA) 20 1-09 mg by [facility] - MG tablet 16:45: mouth Medical 55 daily. [place] magnesium 2019-06 Yes 500mg QD Take [address] 30 mg 1-09 mg by [facility] - tablet 16:45: mouth Medical 55 daily. [place] cyanocobala 2019-06 2020- 100ug QD Take [address] min, 06-26 tablet [facility] - vitamin 00:00: 23:59 (100 mcg Medic al B-12, 00 :00 total) by [place] (vitamin mouth B-12) 100 daily for MCG tablet 30 days. cholecalcif 2019-06 1000U QD Take 1,[address] maddy 06-24 11-07 [facility] ([facility]IT[facility]IN 15:54: 00:00 mouth Medical D3) 1,000 58 :00 daily. [place] unit tablet cyanocobala 2019-06 No 1000ug QD Take 1,[address] min 06-24-07 mcg [facility] - (VITAMIN 15:54: 00:00 mouth Medical B-12) 1000 58 :00 daily. [place] MCG tablet Terbinafine Terbinafine 2019- No Antoni Zuniga [address] HCl HCl 03-04 Mi [facility] - 00:00: 00:00 Memoria 00 :00 [facility] Dulaglutide Dulaglutide Antoni Zuniga as [facility] 03-04 Mi directed [facility] - 00:00: 00:00 Memoria 00 :00 [facility] ONETOUCH 2017-06 Yes 1{strip QD Inject [address] DELICA 0-10 } strip [facility] - LANCETS 33 00:00: subcutaneo M edical gauge Misc 00 usly Center daily. ONETOUCH 2017-06 Yes 1{strip QD Inject [address] ULTRA BLUE 0-10 } strip [facility] - TEST STRIP 00:00: subcutaneo M edical Strp 00 usly Center daily. nitroglycer Yes .4mg Take 0.[address] in 8-07 [facility] (NITRO[facility]) 00:00: mouth as Me dical 0.4 MG SL 00 needed. [place] tablet Furosemide Furosemide Yes Antoni Zuniga TAKE [address] Mi TABLET BY [facility]ukes - MOUTH Memoria EVERY DAY [facility] ent Clinics Levothyroxi Levothyroxi Yes Antoni Zuniga TAKE [address] [facility] ne Sodium ne Sodium Mi TABLET BY [facility] - MOUTH Memoria EVERY DAY [facility] Lisinopril Lisinopril Yes Antoni Zuniga TAKE [address] Mi TABLET BY [facility]ukes - MOUTH Memoria TWICE A l DAY [facility] Citalopram Citalopram Yes Antoni Zuniga TAKE [address] Hydrobromid Hydrobromid Mi TABLET BY [facility] - e e MOUTH Memoria EVERY DAY l IN THE [facility] MORNING ent Clinics BD Pen BD Pen Yes Antoni Zuniga USE PEN [facility] Needle Yumiko Needle Yumiko Mi NEEDLES [facility]ukes - U/F U/F DIRECTED Memoria WITH l TOUJEO [facility] Clinics Amlodipine Amlodipine Yes Antoni Zuniga TAKE [address] [facility] Besylate Besylate Mi TABLET BY Sarah kes - MOUTH Memoria EVERY DAY l [facility] Clinics Magnesium Magnesium Yes Antoni Zuniga [address] [facility] Mi [facility] - Memoria l [facility] ent Clinics Metformin Metformin Yes Antoni Zuniga TAKE [address] HCl HCl Mi TABLET BY [facility]ukes - MOUTH Memoria TWICE A l DAY [facility] ent Clinics Clopidogrel Clopidogrel Yes Antoni Zuniga TAKE [address] [facility] [facility] Bisulfate Bisulfate Mi TABLET BY [facility] - MOUTH Memoria EVERY DAY l [facility]ics Tresiba Treba Yes Antoni Zuniga [address] Mi INJECT [facility]ukes - BELOW THE Memoria SKIN l NIGHTLY [facility] Clinics Atorvastati Atorvastati Yes Antoni Zuniga TAKE [address] [facility] n Calcium n Calcium Mi TABLET BY [facility] - MOUTH Memoria EVERY DAY l IN THE [facility] EVENING ent Clinics Immunizations Ordered Filled Immunization Date Status Comments [facility] e Immunization Name Name FLUZONE HIGH DOSE FLUZONE HIGH DOSE 2020-03-04 Completed [facility] OVER 65 OVER 65 00:00:00 [facility] Vital Signs Vital Name Observation Time Observation Value Comments Source Systolic blood 2020-04-26 11:03:00 148 mm[Hg] [facility] Diastolic blood 2020-04-26 11:03:00 68 mm[Hg] [facility] S [facility] Heart rate 2020-04-26 11:03:00 62 /min [facility] Body temperature 2020-04-26 11:03:00 36.61 Milady [facility] Respiratory rate 2020-04-26 11:03:00 18 /min [facility] Oxygen saturation in 2020-04-26 11:03:00 97 /min [facility] Arterial blood by Medical Ce nter Pulse oximetry Body height 2020-04-24 15:00:00 182.9 cm [facility] Body weight 2020-04-24 15:00:00 102.059 kg [facility] BMI 2020-04-24 15:00:00 30.52 kg/m2 [facility] Procedures Procedure Date / Time Performed Performing Clinician Amy graham POCT-GLUCOSE METER 2020-04-26 11:26:00 niesha [facility] INTRINSIC FACTOR 2020-04-26 11:16:[address] [facility] BLOCKING ANTIBODY [facility] POCT-GLUCOSE METER 2020-04-26 08:53:00 niesha [facility] BASIC METABOLIC PANEL 2020-04-26 04:13:00 [facility] (7) [facility] CBC W/PLT COUNT & AUTO 2020-04-26 04:12:00 niesha [facility] POCT-GLUCOSE METER 2020-04-25 22:31:00 niesha [facility] MR BRAIN WITHOUT IV 2020-04-25 14:52:00 Osei Jacobo [facility] CONTRAST [facility] POCT-GLUCOSE METER 2020-04-25 12:06:00 [facility] 2D ECHO W/ DOPPLER 2020-04-25 09:27:59 Eldon Castro [facility] (CW/PW/COLOR) [facility] CTA BRAIN 2020-04-25 08:39:00 [facility] CT/CTA CAROTID 2020-04-25 08:39:00 [facility] POCT-GLUCOSE METER 2020-04-25 07:34:00 niesha [facility] BASIC METABOLIC PANEL 2020-04-25 05:50:00 [facility] (7) [facility] SARS-COV2/RT-PCR ([facility] & 2020-04-25 05:34:00 [facility] - REF LABS) [facility] CBC W/PLT COUNT & AUTO 2020-04-25 04:57:00 [facility] DIFFERENTIAL [facility] HEMOGLOBIN A1C 2020-04-25 00:41:00 Eldon Castro [facility] LIPID PANEL 2020-04-25 00:41:00 Eldon Castro [facility] TSH/FREE T4 IF INDICATED 2020-04-25 00:40:00 Eldon Castro [facility] VITAMIN B12 AND FOLATE 2020-04-25 00:40:00 Eldon Castro [facility] Plan of Care Planned Activity Planned Date Details Comments Source Future Scheduled 2019-06-[address] [facility] - Test 00:00:00 (12+) [code = Medical Center DEPRESSION SCREENING (12+)] Future Scheduled 2009-06-[address] [facility] - Test 00:00:00 WELLNESS (YEAR 2 or Medical Center FIRST YEAR if no IPPE) [code = MEDICARE ANNUAL WELLNESS (YEAR 2 or FIRST YEAR if no IPPE)] Future Scheduled 2007 PNEUMOCOCCAL 65+ [facility] - Test 00:00:00 (1 of 1 - [facility] Center [id number] PCV13) [code = PNEUMOCOCCAL 65+ YRS (1 of 1 - [id number] PCV13)] Encounters Start End Encounter Admission Attending Care Care Encounter Source Date/Time Date/Time Type Type Clinicians Facility Department ID 2020-05-25 2020-05-25 Office ELVER Ash [id number] 08:41:12 10:27:14 Visit Annise AMBULATOR [id number] Y 0.2.7.2.686 [id number] 2020-04-30 2020-04-30 Outpatient [facility] [id number] [facility] 2020-03-15 2020-03-15 [facility] [id number] 2020-03-15 2020-03-15 [facility] [id number] 2020-03-04 2020-03-04 [facility] [id number] [facility] 10:00:00 10:00:00 [facility] l Medicine [facility] 2020-03-03 2020-03-03 Office ELVER Delgado [id number] 08:00:00 08:20:00 Visit Ciara AMBULATOR 350.1.13.21 Y 0.2.7.2.686 [id number] 2020-01-22 2020-01-22 [facility] [id number] 06:35:00 08:45:00 Encounter Shania graham Giovanna 350.1.13.10 [place] 4.2.7.2.686 Surgical [id number] [place] 071 2020-01-21 2020-01-21 Laboratory Only, [facility] [id number] 08:39:41 08:54:41 Only Test Giovanna 350.1.13.10 [place] 4.2.7.2.686 [place] [id number] 2019-12-12 2019-12-12 Office ELVER Delgado [id number] 07:15:07 07:35:07 Visit Ciara AMBULATOR 350.1.13.21 Y 0.2.7.2.686 [id number] 2019-04-25 2019-04-25 Office ELVER Delgado [id number] 09:58:23 10:18:23 Visit Ciara AMBULATOR 350.1.13.21 Y 0.2.7.2.686 [id number] 2019-01-29 2019-01-29 Office ELVER Delgado [id number] 11:03:31 11:23:31 Visit Ciara AMBULATOR 350.1.13.21 Y 0.2.7.2.686 [id number] Results Test Description Test Time Test Comments Results Result Comments Source Intrinsic factor blocking antibody 2020-04-29 22:17:00 Test Item Value Reference Range Interpretation Comme nts Intrinsic NEGATIVE ADULTS: For additional information, please refere Factor NEGATIVE tohttp://educat ion.Smartbill - Recurrence Backoffice/faq/IFAB(This Block Ab link is being p rovided for informational/educational (test code purposes only.) = [id number]) JORJE (test Performing code = Lab EZ JORJE) Mamaya [facility] [address] [place] [address] Antonio Ramon MD, PhD, CASEY [facility]2D Echo W/Doppler(CW/PW/Color)2020-04-26 12:50:07 Ejection FractionSLEH ECHO HEARTLAB MKCKESSON CPACSInterface, External Ris In - 04/26/2020 12:50 PM CSTTransthoracic Echocardiography Report (TTE) Demographics Patient Name DEE DEE CHOWDHURY Date of Study 04/25/2020 RAY Gender Male Visit Number [id number] Race Unknown Room Number 2209 Number Date of 1940 Referring Physician Jewel Buchanan Age 80 year(s) Clin Tech Nathanael Davis [facility] Housekeeping Lead Wei Cyr Interpreting Tj Calderon MD Physician Procedure Type of Study TTE procedure:2DECHO W DOPPLER(CW/PW/COLOR) (Routine) Indications:Suspected cardiac source of emboli.Clinical HistoryAnginaCoronary Artery DiseaseDiabetesGoutHyperlipidemiaHypertensionHypothyroidismS/P CABG04/06/18 L Cath & PCIHGB 11.7HCT 34.8 %Contrast Medium: Bubble Study.Height: 72 inches Weight: 102.06 kg (225 lbs) BSA: 2.24 m^2 BMI: 30.52kg/m^2HR: 73 bpm BP: 178/79 mmHg Summary IV salinecontrast injection was negative for a PFO (patent foramen ovale) at rest and post Valsalva . Normalleft ventricular chamber size. No apparent segmental wall [...] dysfunction (impaired relaxation and low-normal LA pressure). Left Atrium LA size is mildly enlarged . Right Ventricle Normal right ventricle structure and function. Right Atrium Normal right atrium. Atrial Septum IV saline contrast injection [...] is normal . Pericardium No evidence of pericardial effusion. [...] E/A Ratio: 0.71 Peak Gradient: 3.72 mmHg Decel eration Time: 198.1 msec MV Steven. Peak: Aortic [...] LVOT CO: 7.54 l/min LVOT CI: 3.37 l/min/m^2[facility] [id number] 11:38:00 Test Item Value Reference Range Interpretation Comments POC-Glucose Meter (test 215 mg/dL 70-110 H : TE STED AT [facility] code = 1538) [address] [place] [address], 770 30: Vp Of Digital Marketing/Techni karmen ID = [id number] for MIKEY COLÓN Lab Interpretation (test Abnormal code = 23633-3) [facility] [id number] 11:38:00 Test Item Value Reference Range Interpretation Comments POC-GLUCOSE METER 215 mg/dL 70-110 H : [facility] (BEZoomorama[facility] (test code = [facility], 1538) [address]: Vp Of Digital Marketing/Techni karmen ID = [id number] for BAEZ MIKEY FULLER POCT-GLUCOSE [id number] 09:06:00 Test Item Value Reference Range Interpretation Comments POC-GLUCOSE METER 118 mg/dL 70-110 H : [facility] (BEZoomorama) (test code = [facility], 1538) [address]: Vp Of [employer] Marketing/Techni karmen ID = [id number] for BAEZ MIKEY FULLER Basic metabolic [id number] 05:10:00 Test Item Value Reference Range Interpretation Comments Sodium (test code = 139 meq/L 183-931 8185-2) Potassium (test code = 4.4 meq/L 3.5-5.1 2823-3) Chloride (test code = 108 meq/L 98-107 H 2075-0) CO2 (test code = 22 meq/L 22-29 2028-9) BUN (test code = 17 mg/dL 7-21 3094-0) Creatinine (test code 1.02 mg/dL 0.57-1.25 = 2160-0) Glucose (test code = 119 mg/dL 70-105 H 2345-7) Calcium (test code = 8.6 mg/dL 8.4-10.2 31626-0) EGFR (test code = 71 mL/min/1.73 [place] [address]-8) NOT ACCURATE CREATININE CLEARANCE IN PREDICTING GLOMERULAR FILTRATION RATE . ESTIMATED GFR I S NOT APPLICABLE FOR DIALYSIS PATIENTS. JORJE (test code = JORJE) [employer] Of [employer] ID - WONG M Lab Interpretation Abnormal (test code = 28910-2) [facility] METABOLIC [id number] 05:10:00 Test Item Value Reference Range Interpretation Comments SODIUM (BEAKER) 139 meq/L 136-145 (test code = 381) POTASSIUM (BEAKER) 4.4 meq/L 3.5-5.1 (test code = 379) CHLORIDE (BEAKER) 108 meq/L 98-107 H (test code = 382) CO2 (BEAKER) (test 22 meq/L 22-29 code = 355) BLOOD UREA NITROGEN 17 mg/dL 7-21 (BEAKER) (test code = 354) CREATININE (BEAKER) 1.02 mg/dL 0.57-1.25 (test code = 358) GLUCOSE RANDOM 119 mg/dL 70-105 H (BEAKER) (test code = 652) CALCIUM (BEAKER) 8.6 mg/dL 8.4-10.2 (test code = 697) EGFR (BEAKER) (test 71 mL/min/1.73 ESTIMA JAYLON GFR IS code = 1092) sq m NOT ACCURATE CREATININE CLEARANCE IN PREDICTING GLOMERULAR FILTRATION RATE . ESTIMATED GFR I S NOT APPLICABLE FOR DIALYSIS PATIEN TS. [employer]p Of Digital [employer] ID - WONG MCBC with platelet count + automated [id number] 04:37:00 Test Item Value Reference Range Interpretation Comments WBC (test code = 6690-2) 7.4 3.5- 10.5 K/L RBC (test code = 789-8) 3.88 4.63- 6.08 M/L L MCHC (test code = 786-4) 33.1 32.3- 36.5 GM/DL L Hematocrit (test code = 4544-3) 35.3 % 40.1-51 L MCV (test code = 787-2) 91.0 fL 79-92.2 MCH (test code = 785-6) 30.2 pg 25.7-32.2 RDW (test code = 788-0) 12.9 % 11.6-14.4 Platelets (test code = 777-3) 174 150- 450 K/CU MM MPV (test code = 84921-1) 10.0 fL 9.4-12.4 nRBC (test code = 413) 0 0- 0 /100 WBC % Neutros (test code = 429) 53 % % Lymphs (test code = 430) 32 % % Monos (test code = 431) 9 % % Eos (test code = 432) 5 % % Baso (test code = 437) 1 % # Neutros (test code = 670) 3.93 1.78- 5.38 K/L # Lymphs (test code = 414) 2.36 1.32- 3.57 K/L # Monos (test code = 415) 0.68 0.30- 0.82 K/L # Eos (test code = 416) 0.35 0.04- 0.54 K/L # Baso (test code = 417) 0.06 0.01- 0.08 K/L Immature Granulocytes-Relative 0 % 0-1 (test code = 2801) Lab Interpretation (test code = Abnormal 84375-6) [facility] W/PLT COUNT & AUTO [id number] 04:37:00 Test Item Value Reference Range Interpretation Comments WHITE BLOOD CELL COUNT (BEAKER) 7.4 K/ L 3.5-10.5 (test code = 775) RED BLOOD CELL COUNT (BEAKER) 3.88 M/ L 4.63-6.08 L (test code = 761) HEMOGLOBIN (BEAKER) (test code = 11.7 GM/DL 13.7-17.5 L 410) HEMATOCRIT (BEAKER) (test code = 35.3 % 40.1-51.0 L 411) MEAN CORPUSCULAR VOLUME (BEAKER) 91.0 fL 79.0-92.2 (test code = 753) MEAN CORPUSCULAR HEMOGLOBIN 30.2 pg 25.7-32.2 (BEAKER) (test code = 751) MEAN CORPUSCULAR HEMOGLOBIN CONC 33.1 GM/DL 32.3-36.5 (BEAKER) (test code = 752) RED CELL DISTRIBUTION WIDTH 12.9 % 11.6-14.4 (BEAKER) (test code = 412) PLATELET COUNT (BEAKER) (test 174 K/CU MM 150-450 code = 756) MEAN PLATELET VOLUME (BEAKER) 10.0 fL 9.4-12.4 (test code = 754) NUCLEATED RED BLOOD CELLS 0 /100 WBC 0-0 (BEAKER) (test code = 413) NEUTROPHILS RELATIVE PERCENT 53 % (BEAKER) (test code = 429) LYMPHOCYTES RELATIVE PERCENT 32 % (BEAKER) (test code = 430) MONOCYTES RELATIVE PERCENT 9 % (BEAKER) (test code = 431) EOSINOPHILS RELATIVE PERCENT 5 % (BEAKER) (test code = 432) BASOPHILS RELATIVE PERCENT 1 % (BEAKER) (test code = 437) NEUTROPHILS ABSOLUTE COUNT 3.93 K/ L 1.78-5.38 (BEAKER) (test code = 670) LYMPHOCYTES ABSOLUTE COUNT 2.36 K/ L 1.32-3.57 (BEAKER) (test code = 414) MONOCYTES ABSOLUTE COUNT (BEAKER) 0.68 K/ L 0.30-0.82 (test code = 415) EOSINOPHILS ABSOLUTE COUNT 0.35 K/ L 0.04-0.54 (BEAKER) (test code = 416) BASOPHILS ABSOLUTE COUNT (BEAKER) 0.06 K/ L 0.01-0.08 (test code = 417) IMMATURE GRANULOCYTES-RELATIVE 0 % 0-1 PERCENT (BEAKER) (test code = 2801) POCT-GLUCOSE [id number] 22:45:00 Test Item Value Reference Range Interpretation Comments POC-GLUCOSE METER 180 mg/dL 70-110 H : TESTED A T [facility] 6720 (BEAKER) (test code = JULIUS CHRISTENSEN, 1538) [address]: Vp Of Digital Marketing/Techni karmen ID = [id number] for DO VE, CHEKARA SARS-CoV2/RT-PCR (Asymptomatic ONLY)2020-04-25 16:41:00 Test Item Value Reference Range Interpretation Comments SARS-COV2/RT-PCR Negative Not Detected, (test code = Negative, See 97115-1) external report for linked test SARS-COV-2 [facility] PERFORMING LAB (test code = 12830-9) JORJE (test code = Negative result for this JORJE) test determines that SARS-CoV-2 RNA was not present in the [...] the Act. Testing was performed using the FriendFit SARS-CoV-2 assay. Fact Sheet for Healthcare Providers:https://www.mary campbell.alfredo/ace/RT_SA LM-ZcX-5_VQT_Cepr_Ltleq_ 51-601332.pdf Fact Sheet for Healthcare Patients:https://www.faisal mendez.EquityMetrix/ace/RT_SAR M-YpT-4_Lyviijj_Cvdp_Euw et_EN_51-688163V8.pdf Performing Laboratory:[facility] [place] [address] [facility] ([facility] & REF LABS)2020-04-25 16:41:00 Test Item Value Reference Range Interpretation Comments SARS-COV2/RT-PCR (test Negative Not Detected, Negative, code = 0733374) See external report for linked test SARS-COV-2 PERFORMING LAB [facility] (test code = 1971323) Negative result for this test determines that SARS-CoV-2 RNA was not present in the specimen above the Limit of Detection (LOD). However, Negative results do not preclude SARS-CoV-2 infection and should not be used as the sole basis for treatment or patient management decisions. Negative results mustbe combined with clinical observations, patient history, and epidemiological information. A false negative result may occur if a specimen is improperly collected, transported or handled. A false negative result should be considered if patient's recent exposures or clinical presentation indicate that COVID-19 (SARS-CoV-2) is likely and diagnostic tests for other causes of illness are negative. Re-testing should be considered in cases of suspected false negatives.The limit of detection for this assay is 100 copies/mL.This SARS CoV-2 test is a real-time RT-PCR test intended for the qualitative detection of nucleic acid from SARS-CoV-2 in a nasopharyngeal swab specimen collected from individuals susp ected of COVID-19 by their healthcare provider.This test has not been Food and Drug [...] is revoked under Section 564(g) of the Act.Testing was performed using the FriendFit SARS-CoV-2 assay.Fact Sheet for Healthcare Providers:https://www.Cloudbot.EquityMetrix/ace/ JA_NCUU-GoQ-6_ZGX_Rnzx_Xvtjj_85-063595.pdfFact Sheet for Healthcare Patients:https://www.Cloudbot.ab jesika/ace/QS_KSLF-FoF-1_Asuvlkp_Xdry_Skzal_WN_77-104095Z8.pdfPerforming Laboratory:[facility], [place] [address]RZ, BRAIN, WITHOUT [id number] 15:04:00Unlisted Reason for Exam - Click Yes and Enter Reason Below->No [facility] : 1940 Sex: MFINAL REPORT MR, BRAIN, WITHOUT CONTRAST INDICATION: Stroke, follow up Technique: MRI of the brain utilizing axial T1, T2, FLAIR, GRE, DWI, sagittal T1; and postgadolinium axial, sagittal, and coronal T1-weighted images. 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 No hemorrhagic conversion or significant mass effect. Brain parenchyma is otherwise normal in morphology. Midline structures are normally developed. No abnormal susceptibility. Scattered T2/FLAIR hyperintense foci within the periventricular and subcortical white matter are nonspecific, however, statistically represent chronic microvascular ischemic changes. No hydrocephalus. Orbits are within normal limits. No obstructive paranasalsinus disease. Additional findings: None. 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 No hemorrhagic conversion or significant mass effect. Signed: Ludin Castanon MDReport Verified Date/Time: 04/25/2020 15:04:20 Reading Location: [address] Neuro Reading Room MR brain without IV contrast 2020-04-25 15:04:00Interface, External Ris In - 04/25/2020 3:06 PM CSTFINAL REPORT MR, BRAIN, WITHOUT CONTRAST INDICATION: Stroke, follow up Technique: MRI of the brain utilizing axial T1, T2, FLAIR, GRE, DWI, sagittal T1; and postgadolinium axial, sagittal, and coronal T1-weighted images. 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 No hemorrhagic conversion or significant mass effect. Brain parenchyma is otherwise normal in morphology. Midline structures are normally developed. No abnormal susceptibility. Scattered T2/ FLAIR hyperintense foci within the periventricular and subcortical white matter are nonspecific, however, statistically represent chronic microvascular ischemic changes. No hydrocephalus. Orbits are within normal limits. No obstructive paranasal sinus disease. Additional findings: None. 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 No hemorrhagic conversion or significant mass effect. Signed: Ludin Castanon [facility] Verified Date/Time: 04/25/2020 15:04:20 Reading Location: [address] Neuro Reading [facility] [id number] 12:17:00 Test Item Value Reference Range Interpretation Comments POC-GLUCOSE METER 148 mg/dL 70-110 H : TESTED A T [facility] 6720 [facility] (test code [facility], = 1538) [address]1077: Vp Of Digital Marketing/Techni karmen ID = [id number] for TSEG GAI, TSIGHEREDA CT, CTANGIO [id number] 09:22:00Unlisted Reason for Exam - Click Yes and Enter Reason Below->No [facility] : 1940 Sex: MFINAL REPORT CT, CAROTID, ANGIO, CT, CTANGIO BRAINBRAIN CT WITHOUT CO NTRAST INDICATION: Neuro deficit, acute, stroke suspected COMPARISON: CT head of the same date TECHNIQUE:Rapid acquisition spiral images were obtained between the aortic arch and the cranial vertex during intravenous contrast infusion to reconstruct axial images and angiographic 3D maximum intensity projections (MIP). 3-D volumetric reformatted images were created at a dedicated workstation. Precontrast images of the brain were also obtained. Stenosis evaluation reported in compliance with NASCET criteria. DOSE REDUCTION: Dose modulation, iterative reconstruction, and/or weight-based adjustment ofthe mA/kV was utilized to reduce the radiation dose to as low as reasonably achievable. FINDINGS:NECT BRAIN: Hypoattenuation within the right frontal subcortical white matter, which, in the appropriate clinical setting, may represent an acute versus subacute infarct. No intracranial hemorrhage, midline shift or mass effect. Midline structures are normally developed. Mild chronic microvascular ischemic changes of the periventricular and subcortical white matter are present. No hydrocephalus. Orbits are within normal limits. No obstructive paranasal sinus disease. CTA BRAIN:Internal carotid arteries: Bilateral calcific intracranial atherosclerotic disease. Petrous, cavernous and supraclinoid portions patent. Middle cerebral arteries: Bilateral MCA M1-M2 branches demonstrate normal contrast enhancement.Anterior cerebral arteries: Bilateral TERA A1-A2 branches demonstrate normal contrast enhancement.Basilar system: Normal contrast opacification of the vertebrobasilar system.Posterior cerebral arteries: Normal contrast opacification of the bilateral [employer]CH[employer]ISING OFFIC[employer] P1-P2 branches.Venous opacification: Major dural sinuses unremarkable for bolus timing.Additional findings: None. CTA NECK:Common carotid arteries: Moderate atherosclerotic narrowing of the right common carotid artery origin. There is normal contrast opacification of the bilateral common carotid arteries.Cervical internal carotid arteries: Status post stenting of bilateral internal carotid arteries. Artifact from stent material makes evaluationof carotid narrowing inaccurate, however, bilateral internal carotid arteries are patent. Vertebral a rteries: Normal contrast opacification of the bilateral cervical vertebral arteries.Arch anatomy: Conventional. Nonvascular findings:No acute findings within the neck soft tissues. IMPRESSION: Hypoattenuation within the right frontal subcortical white matter, which, in the appropriate clinical setting, may represent an acute versus subacute infarct. No intracranial hemorrhage. Unremarkable CTA of the head and neck. Signed: Ludin Castanon MDReport Verified Date/Time: 04/25/2020 09:22:54 Reading Location: [facility] C013V Neuro Reading Room CT, CAROTID, [id number] 09:22:00Unlisted Reason for Exam - Click Yes and Enter Reason Below->No [facility] : 1940 Sex: MFINAL REPORT CT, CAROTID, ANGIO, CT, CTANGIO BRAINBRAIN CT WITHOUT CO NTRAST INDICATION: Neuro deficit, acute, stroke suspected COMPARISON: CT head of the same date TECHNIQUE:Rapid acquisition spiral images were obtained between the aortic arch and the cranial vertex during intravenous contrast infusion to reconstruct axial images and angiographic 3D maximum intensity projections (MIP). 3-D volumetric reformatted images were created at a dedicated workstation. Precontrast images of the brain were also obtained. Stenosis evaluation reported in compliance with NASCET criteria. DOSE REDUCTION: Dose modulation, iterative reconstruction, and/or weight-based adjustment ofthe mA/kV was utilized to reduce the radiation dose to as low as reasonably achievable. FINDINGS:NECT BRAIN: Hypoattenuation within the right frontal subcortical white matter, which, in the appropriate clinical setting, may represent an acute versus subacute infarct. No intracranial hemorrhage, midline shift or mass effect. Midline structures are normally developed. Mild chronic microvascular ischemic changes of the periventricular and subcortical white matter are present. No hydrocephalus. Orbits are within normal limits. No obstructive paranasal sinus disease. CTA BRAIN:Internal carotid arteries: Bilateral calcific intracranial atherosclerotic disease. Petrous, cavernous and supraclinoid portions patent. Middle cerebral arteries: Bilateral MCA M1-M2 branches demonstrate normal contrast enhancement.Anterior cerebral arteries: Bilateral TERA A1-A2 branches demonstrate normal contrast enhancement.Basilar system: Normal contrast opacification of the vertebrobasilar system.Posterior cerebral arteries: Normal contrast opacification of the bilateral [employer] OFF[employer]ER P1-P2 branches.Venous opacification: Major dural sinuses unremarkable for bolus timing.Additional findings: None. CTA NECK:Common carotid arteries: Moderate atherosclerotic narrowing of the right common carotid artery origin. There is normal contrast opacification of the bilateral common carotid arteries.Cervical internal carotid arteries: Status post stenting of bilateral internal carotid arteries. Artifact from stent material makes evaluationof carotid narrowing inaccurate, however, bilateral internal carotid arteries are patent. Vertebral a rteries: Normal contrast opacification of the bilateral cervical vertebral arteries.Arch anatomy: Conventional. Nonvascular findings:No acute findings within the neck soft tissues. IMPRESSION: Hypoattenuation within the right frontal subcortical white matter, which, in the appropriate clinical setting, may represent an acute versus subacute infarct. No intracranial hemorrhage. Unremarkable CTA of the head and neck. Signed: Ludin Castanon MDReport Verified Date/Time: 04/25/2020 09:22:54 Reading Location: [address] Neuro Reading Room [facility] [id number] 09:22:00Interface, External Ris In - 04/26/2020 7:[address], CAROTID,ANGIO, CT, CTANGIO BRAINBRAIN CT WITHOUT CONTRAST INDICATION: Neuro deficit, acute, stroke suspected COMPARISON: CT head of the same date TECHNIQUE:Rapid acquisition spiral images were obtained between the aortic arch and the cranial vertex during intravenous contrast infusion to reconstruct axial images and angiographic 3D maximum intensity projections (MIP). 3-D volumetric reformatted images were created at a dedicated workstation. Precontrast images of the brain were also obtained. Stenosis evaluation reported in compliance with NASCET criteria. DOSE REDUCTION: Dose modulation, iterative reconstruction, and/or weight-based adjustment of the mA/kV was utilized to reduce the radiation dose to as low as reasonably achievable. FINDINGS:NECT BRAIN: Hypoattenuation within the right frontal subcortical white matter, which, in the appropriate clinical setting, may represent an acute versus subacute infarct. No intracranial hemorrhage, midline shift or mass effect. Midline structures are normally d eveloped. Mild chronic microvascular ischemic changes of the periventricular and subcortical white matter are present. No hydrocephalus. Orbits are within normal limits. No obstructive paranasal sinus disease. CTA BRAIN:Internal carotid arteries: Bilateral calcific intracranial atherosclerotic disease. Petrous, cavernous and supraclinoid portions patent. Middle cerebral arteries: Bilateral MCA M1-M1mntzsbuw demonstrate normal contrast enhancement.Anterior cerebral arteries: Bilateral TERA A1-A2 branches demonstrate normal contrast enhancement.Basilar system: Normal contrast opacification of the vertebrobasilar system.Posterior cerebral arteries: Normal contrast opacification of the bilateral [employer]ISING OFF[employer]ER P1-P2 branches.Venous opacification: Major dural sinuses unremarkable for bolus timing.Additional findings: None. CTA NECK:Common carotid arteries: Moderate atherosclerotic narrowing of the right commoncarotid artery origin. There is normal contrast opacification of the bilateral common carotid arteries.Cervical internal carotid arteries: Status post stenting of bilateral internal carotid arteries. Artifact from stent material makes evaluation of carotid narrowing inaccurate, however, bilateral internal carotid arteries are patent. Vertebral arteries: Normal contrast opacification of the bilateral c ervical vertebral arteries.Arch anatomy: Conventional. Nonvascular findings:No acute findings withinthe neck soft tissues. IMPRESSION: Hypoattenuation within the right frontal subcortical white matter, which, in the appropriate clinical setting, may represent an acute versus subacute infarct. No intracranial hemorrhage. Unremarkable CTA of the head and neck. Signed: Ludin Castanon MDReport Verified Date/Time: 04/25/2020 09:22:54 Reading Location: [facility] C0V [facility] [id number] 09:22:00 Interface, External Ris In - 04/26/2020 7:[address], CAROTID,ANGIO, CT, CTANGIO BRAINBRAIN CT WITHOUT CONTRAST INDICATION: Neuro deficit, acute, stroke suspected COMPARISON: CT head of the same date TECHNIQUE:Rapid acquisition spiral images were obtained between the aortic arch and the cranial vertex during intravenous contrast infusion to reconstruct axial images and angiographic 3D maximum intensity projections (MIP). 3-D volumetric reformatted images were created at a dedicated workstation. Precontrast images of the brain were also obtained. Stenosis eval uation reported in compliance with NASCET criteria. DOSE REDUCTION: Dose modulation, iterative reconstruction, and/or weight-based adjustment of the mA/kV was utilized to reduce the radiation dose to as low as reasonably achievable. FINDINGS:NECT BRAIN: Hypoattenuation within the right frontal subcortical white matter, which, in the appropriate clinical setting, may represent an acute versus subacute infarct. No intracranial hemorrhage, midline shift or mass effect. Midline structures are normally developed. Mild chronic microvascular ischemic changes of the periventricular and subcortical white ma tter are present. No hydrocephalus. Orbits are within normal limits. No obstructive paranasal sinus disease. CTA BRAIN:Internal carotid arteries: Bilateral calcific intracranial atherosclerotic disease. Petrous, cavernous and supraclinoid portions patent. Middle cerebral arteries: Bilateral MCA M1-M2 branches demonstrate normal contrast enhancement.Anterior cerebral arteries: Bilateral TERA A1-A2 branches demonstrate normal contrast enhancement.Basilar system: Normal contrast opacification of the vertebrobasilar system.Posterior cerebral arteries: Normal contrast opacification of the bilateral [employer]ER P1-P2 branches.Venous opacification: Major dural sinuses unremarkable for bolus timing.Additional findings: None. CTA NECK:Common carotid arteries: Moderate atherosclerotic narrowing of the right commoncarotid artery origin. There is normal contrast opacification of the bilateral common carotid arteries.Cervical internal carotid arteries: Status post stenting of bilateral internal carotid arteries. Artifact from stent material makes evaluation of carotid narrowing inaccurate, however, bilateral internal carotid arteries are patent. Vertebral arteries: Normal contrast opacification of the bilateral cervical vertebral arteries.Arch anatomy: Conventional. Nonvascular findings:No acute findings withinthe neck soft tissues. IMPRESSION: Hypoattenuation within the right frontal subcortical white matter, which, in the appropriate clinical setting, may represent an acute versus subacute infarct. No intracranial hemorrhage. Unremarkable CTA of the head and neck. Signed: Ludin Castanon Verified Date/Time: 04/25/2020 09:22:54 Reading Location: [facility] C013 Neuro Reading [facility] [id number] 08:05:00 Test Item Value Reference Range Interpretation Comments POC-GLUCOSE METER 108 mg/dL 70-110 : TESTED A T [facility] 6720 (BEAKER) [facility] = 1538[facility] [address]: Vp Of Digital Marketing/Techni karmen ID = [id number] for DIMITRIOS COOK Hemoglobin [id number] 07:59:00 Test Item Value Reference Range Interpretation Comments Hemoglobin A1C (test code = 4548-4) 6.7 % 4.3-6.1 H Lab Interpretation (test code = Abnormal 53314-2) [facility] [id number] 07:59:00 Test Item Value Reference Range Interpretation Comments HEMOGLOBIN A1C (BEAKER) (test code = 6.7 % 4.3-6.1 H 368) BASIC METABOLIC [id number] 06:31:00 Test Item Value Reference Range Interpretation Comments SODIUM (BEAKER) 140 meq/L 136-145 (test code = 381) POTASSIUM (BEAKER) 3.7 meq/L 3.5-5.1 Specimen slightly (test code = 379) hemolyzed CHLORIDE (BEAKER) 107 meq/L 98-107 (test code = 382) CO2 (BEAKER) (test 21 meq/L 22-29 L code = 355) BLOOD UREA NITROGEN 18 mg/dL 7-21 (BEAKER) (test code = 354) CREATININE (BEAKER) 0.93 mg/dL 0.57-1.25 Specimen slightly (test code = 358) hemolyzed GLUCOSE RANDOM 108 mg/dL 70-105 H (BEAKER) (test code = 652) CALCIUM (BEAKER) 7.9 mg/dL 8.4-10.2 L (test code = 697) EGFR (BEAKER) (test 79 mL/min/1.73 ESTIMA JAYLON GFR IS code = 1092) sq m NOT ACCURATE CREATININE CLEARANCE IN PREDICTING GLOMERULAR FILTRATION RATE . ESTIMATED GFR I S NOT APPLICABLE FOR DIALYSIS PATIEN TS. Vp Of Digital Marketing ID - WONG MCBC W/PLT COUNT & AUTO [id number] 05:16:00 Test Item Value Reference Range Interpretation Comments WHITE BLOOD CELL COUNT (BEAKER) 7.5 K/ L 3.5-10.5 (test code = 775) RED BLOOD CELL COUNT (BEAKER) 3.79 M/ L 4.63-6.08 L (test code = 761) HEMOGLOBIN (BEAKER) (test code = 11.7 GM/DL 13.7-17.5 L 410) HEMATOCRIT (BEAKER) (test code = 34.8 % 40.1-51.0 L 411) MEAN CORPUSCULAR VOLUME (BEAKER) 91.8 fL 79.0-92.2 (test code = 753) MEAN CORPUSCULAR HEMOGLOBIN 30.9 pg 25.7-32.2 (BEAKER) (test code = 751) MEAN CORPUSCULAR HEMOGLOBIN CONC 33.6 GM/DL 32.3-36.5 (BEAKER) (test code = 752) RED CELL DISTRIBUTION WIDTH 13.0 % 11.6-14.4 (BEAKER) (test code = 412) PLATELET COUNT (BEAKER) (test 171 K/CU MM 150-450 code = 756) MEAN PLATELET VOLUME (BEAKER) 9.9 fL 9.4-12.4 (test code = 754) NUCLEATED RED BLOOD CELLS 0 /100 WBC 0-0 (BEAKER) (test code = 413) NEUTROPHILS RELATIVE PERCENT 51 % (BEAKER) (test code = 429) LYMPHOCYTES RELATIVE PERCENT 36 % (BEAKER) (test code = 430) MONOCYTES RELATIVE PERCENT 8 % (BEAKER) (test code = 431) EOSINOPHILS RELATIVE PERCENT 4 % (BEAKER) (test code = 432) BASOPHILS RELATIVE PERCENT 1 % (BEAKER) (test code = 437) NEUTROPHILS ABSOLUTE COUNT 3.84 K/ L 1.78-5.38 (BEAKER) (test code = 670) LYMPHOCYTES ABSOLUTE COUNT 2.68 K/ L 1.32-3.57 (BEAKER) (test code = 414) MONOCYTES ABSOLUTE COUNT (BEAKER) 0.59 K/ L 0.30-0.82 (test code = 415) EOSINOPHILS ABSOLUTE COUNT 0.28 K/ L 0.04-0.54 (BEAKER) (test code = 416) BASOPHILS ABSOLUTE COUNT (BEAKER) 0.05 K/ L 0.01-0.08 (test code = 417) IMMATURE GRANULOCYTES-RELATIVE 0 % 0-1 PERCENT (BEAKER) (test code = 2801) TSH/Free T4 If [id number] 04:19:00 Test Item Value Reference Range Interpretation Comments TSH (test code = 0.559 0.350- 4.940 uIU/mL 39310-9) JORJE (test code = JORJE) Vp Of Digital Marketing ID - WONG M Lab Interpretation (test Normal code = 24423-2) [facility] Monica[facility] B[facility] and [id number] 04:19:00 Test Item Value Reference Range Interpretation Comments Vitamin B12 (test code = 202 pg/mL 213-816 L 2132-9) Folate (test code = 15.40 ng/mL >=7.00 2284-8) JORJE (test code = JORJE) Vp Of Digital Marketing ID - WONG M Lab Interpretation (test Abnormal code = 49335-7) [facility] Monica[facility]FREE T4 IF [id number] 04:19:00 Test Item Value Reference Range Interpretation Comments THYROID STIMULATING HORMONE 0.559 uIU/mL 0.350-4.940 (BEAKER) (test code = 772) Vp Of Digital Marketing ID - WONG MVITAMIN B12 AND [id number] 04:19:00 Test Item Value Reference Range Interpretation Comments VITAMIN B12 (BEAKER) (test code = 202 pg/mL 213-816 L 774) FOLATE (BEAKER) (test code = 362) 15.40 ng/mL >=7.00 Vp Of Digital Marketing ID - WONG MLipid [id number] 01:15:00 Test Item Value Reference Range Interpretation Comments Triglycerides (test 219 mg/dL code = 2571-8) Cholesterol (test code 116 mg/dL = 2093-3) HDL (test code = 33 mg/dL 2085-9) LDL Calculated (test 39 mg/dL code = 74155-4) JORJE (test code = JORJE) Triglyceride Reference Range: Low Risk <150 Borderline 150-199 High Risk 200-499 Very High Risk >=500 Cholesterol Reference Range: Low Risk <200 Borderline 200-239 High Risk >240 HDL Cholesterol Reference Range: Low Risk >=60 High Risk <40 LDL Cholesterol Reference Range: Optimal <100 Near Optimal 100-129 Borderline 130-159 High 160-189 Very High >=190 Vp Of Digital Marketing ID - DB [facility] MonicaLIPID [id number] 01:15:00 Test Item Value Reference Range Interpretation Comments TRIGLYCERIDES (BEAKER) (test code = 219 mg/dL 540) CHOLESTEROL (BEAKER) (test code = 116 mg/dL 631) HDL CHOLESTEROL (BEAKER) (test code 33 mg/dL = 976) LDL CHOLESTEROL CALCULATED (BEAKER) 39 mg/dL (test code = 633) Triglyceride Reference Range: Low Risk <150 Borderline 150-199 High Risk 200-499 Very High Risk >=500Cholesterol Reference Range: Low Risk <200 Borderline 200-239 High Risk >240HDL Cholesterol Reference Range: Low Risk >=60 High Risk <40LDL Cholesterol Reference Range: Optimal <100 Near Optimal 100-129 Borderline 130-159 High 160-189 Very High >=190 Vp Of Digital Marketing ID - DBPOCT-GLUCOSE [id number] 08:31:00 Test Item Value Reference Range Interpretation Comments POC-GLUCOSE METER 195 mg/dL 70-110 H TESTED AT [facility] 6720 (BEAKER) (test code = [place] 15[place]) [address] [id number] 05:59:00 Test Item Value Reference Range Interpretation Comments MAGNESIUM (BEAKER) (test code = 2.0 mg/dL 1.6-2.6 627) BASIC METABOLIC [id number] 05:59:00 Test Item Value Reference Range Interpretation Comments SODIUM (BEAKER) 138 meq/L 136-145 (test code = 381) POTASSIUM (BEAKER) 4.3 meq/L 3.5-5.1 (test code = 379) CHLORIDE (BEAKER) 103 meq/L 98-107 (test code = 382) CO2 (BEAKER) (test 25 meq/L 22-29 code = 355) BLOOD UREA NITROGEN 14 mg/dL 7-21 (BEAKER) (test code = 354) CREATININE (BEAKER) 1.33 mg/dL 0.57-1.25 H (test code = 358) GLUCOSE RANDOM 191 mg/dL 70-105 H (BEAKER) (test code = 652) CALCIUM (BEAKER) 9.6 mg/dL 8.4-10.2 (test code = 697) EGFR (BEAKER) (test 52 mL/min/1.73 ESTIMA JAYLON GFR IS code = 1092) sq m NOT ACCURATE CREATININE CLEARANCE IN PREDICTING GLOMERULAR FILTRATION RATE . ESTIMATED GFR I S NOT APPLICABLE FOR DIALYSIS PATIEN TS. CBC (HEMOGRAM ONLY)2018-04-07 05:40:00 Test Item Value Reference Range Interpretation Comments WHITE BLOOD CELL COUNT (BEAKER) 8.6 K/ L 3.5-10.5 (test code = 775) RED BLOOD CELL COUNT (BEAKER) 4.18 M/ L 4.63-6.08 L (test code = 761) HEMOGLOBIN (BEAKER) (test code = 12.9 GM/DL 13.7-17.5 L 410) HEMATOCRIT (BEAKER) (test code = 39.8 % 40.1-51.0 L 411) MEAN CORPUSCULAR VOLUME (BEAKER) 95.2 fL 79.0-92.2 H (test code = 753) MEAN CORPUSCULAR HEMOGLOBIN 30.9 pg 25.7-32.2 (BEAKER) (test code = 751) MEAN CORPUSCULAR HEMOGLOBIN CONC 32.4 GM/DL 32.3-36.5 (BEAKER) (test code = 752) RED CELL DISTRIBUTION WIDTH 12.8 % 11.6-14.4 (BEAKER) (test code = 412) PLATELET COUNT (BEAKER) (test 262 K/CU MM 150-450 code = 756) MEAN PLATELET VOLUME (BEAKER) 9.6 fL 9.4-12.4 (test code = 754) NUCLEATED RED BLOOD CELLS 0 /100 WBC 0-0 (AKER) (test code = 413) POCT-GLUCOSE [id number] 23:05:00 Test Item Value Reference Range Interpretation Comments POC-GLUCOSE METER 337 mg/dL 70-110 H TESTED AT [place] [address] ([facility]) (test code = [facility] 1538) [address] POCT-GLUCOSE [id number] 20:14:00 Test Item Value Reference Range Interpretation Comments POC-GLUCOSE METER 170 mg/dL 70-110 H TESTED AT [place] [address] ([facility]) (test code = [place] 1538) [address] [id number] 19:30:00 Test Item Value Reference Range Interpretation Comments ACTIVATED CLOTTING TIME 136 sec TEST ED AT [place] [address] ([facility]) (test code = [place] [address]) [address] POCT-GLUCOSE [id number] 16:54:00 Test Item Value Reference Range Interpretation Comments POC-GLUCOSE METER 149 mg/dL 70-110 H TESTED AT [place] [address] ([facility]) (test code = [facility] 1538) [address] [id number] 15:06:00 Test Item Value Reference Range Interpretation Comments ACTIVATED CLOTTING TIME 318 sec TEST ED AT [place] [address] ([facility]) (test code = [place] [address]) [address] POCT-GLUCOSE [id number] 08:51:00 Test Item Value Reference Range Interpretation Comments POC-GLUCOSE METER 208 mg/dL 70-110 H TESTED AT [place] [address] ([facility]) (test code = [facility] 1538) [address] BASIC METABOLIC [id number] 08:19:00 Test Item Value Reference Range Interpretation Comments SODIUM (BEAKER) 138 meq/L 136-145 (test code = 381) POTASSIUM (BEAKER) 4.6 meq/L 3.5-5.1 (test code = 379) CHLORIDE (BEAKER) 105 meq/L 98-107 (test code = 382) CO2 (BEAKER) (test 25 meq/L 22-29 code = 355) BLOOD UREA NITROGEN 13 mg/dL 7-21 (BEAKER) (test code = 354) CREATININE (BEAKER) 1.04 mg/dL 0.57-1.25 (test code = 358) GLUCOSE RANDOM 185 mg/dL 70-105 H (BEAKER) (test code = 652) CALCIUM (BEAKER) 9.2 mg/dL 8.4-10.2 (test code = 697) EGFR (BEAKER) (test 69 mL/min/1.73 ESTIMA JAYLON GFR IS code = 1092) sq m NOT ACCURATE CREATININE CLEARANCE IN PREDICTING GLOMERULAR FILTRATION RATE . ESTIMATED GFR I S NOT APPLICABLE FOR DIALYSIS PATIEN TS. [id number] 06:49:00 Test Item Value Reference Range Interpretation Comments MAGNESIUM (BEAKER) (test code = 1.6 mg/dL 1.6-2.6 627) POCT-GLUCOSE [id number] 21:32:00 Test Item Value Reference Range Interpretation Comments POC-GLUCOSE METER 278 mg/dL 70-110 H TESTED AT [place] [address] ([facility]) (test code = [facility] 1538) [address] POCT-GLUCOSE [id number] 18:28:00 Test Item Value Reference Range Interpretation Comments POC-GLUCOSE METER 404 mg/dL 70-110 Notified Tye Paredes MD/TESTED (MICHEL) (test code = AT [facility] [address]) [place] [address] POCT-GLUCOSE [id number] 17:13:00 Test Item Value Reference Range Interpretation Comments POC-GLUCOSE METER 415 mg/dL 70-110 HH TESTED AT [facility] 6720 (MICHEL) (test code = [facility] 1538) [address] [facility], MULTI, PHARM, [id number] 14:25:00FINAL REPORT PROCEDURE: Rest/Stress MYOCARDIAL PERFUSION SPECT with regad enoson\\XA9\\ CPT CODE: 29790 INDICATION: CAD, acute chest pain, abnormal treadmill testHISTORY: Cardiac risk factors: Diabetes, hypertension, hyperlipidemia, cerebrovascular disease. Other cardiovascular history: CABG 1996. Recent cardiac symptoms: Angina. PROTOCOL: 10.4 mCi of Tc-99m sestamibi was injected iv at rest, and SPECT (tomographic) images were obtained. Also, 30.3 mCi of Tc-99m sestamibi was injected iv at expected peak pharmacologic effect, and gated SPECT images were obtained. PRELIMINARY STRESS TEST DATA FROM NONINVASIVE CARDIOLOGY: Pharmacologic stress was by 10-second iv infusion of 0.4 mg of regadenoson. Radiotracer was injected 30 seconds after startof stress. Heart rate was 62 beats/min at rest and 85 beats/min (59 % of MPHR) at tracer injection. BP was 187/88 mmHg at rest and 166/72 mmHg at tracer injection. Stress was stopped for predetermined endpoint. The patient experienced leg discomfort, abdominal discomfort, chest pressure, and headache; treatment was not required. Preliminary ECG evaluation was not available from cardiology at the timeof this report. (Final ECG interpretation and other stress and monitoring data are reported separately by Cardiology.) IMAGING FINDINGS: Study quality is good. Post-stress images show moderate decrease in activity in the basal and mid anterolateral and inferolateral segments and in the lateral apical segment. Resting images show markedly improved distribution. LV volume appears normal. RV volume appears normal. Gated images obtained at rest after stress injection show mild lateral hypokinesis . QGS LVEF is 37% at immediately post stress and 57 at rest%. IMPRESSION: 1. Abnormal study. 2. Appropriate pharmacologic stress. 3. Abnormal myocardial perfusion. There is a moderate severity, large sized, mostly reversible, perfusion defect in the anterolateral and inferolateral LV. 4. Overall resting LV function is normal with normal wall motion. There is regional LV function deterioration withpharmacologic stress. 5. Extracardiac tracer distribution is normal. 6. The previous study of 10/23/19 13 was reported normal. Signed: Berenice Fish MDReport Verified Date/Time: 04/05/2018 14:25:54 Reading Location: [address] Reading Room POCT- GLUCOSE [id number] 08:32:00 Test Item Value Reference Range Interpretation Comments POC-GLUCOSE METER 214 mg/dL 70-110 H TESTED AT [place] [address] ([facility]) (test code = [place] 1538) [id number] 06:37:00 Test Item Value Reference Range Interpretation Comments MAGNESIUM (BEAKER) (test code = 2.0 mg/dL 1.6-2.6 627) POCT-GLUCOSE [id number] 21:22:00 Test Item Value Reference Range Interpretation Comments POC-GLUCOSE METER 281 mg/dL 70-110 H TESTED AT [place] [address] (BEAKER) (test code = [place] 1538) [address] POCT-GLUCOSE [id number] 17:03:00 Test Item Value Reference Range Interpretation Comments POC-GLUCOSE METER 182 mg/dL 70-110 H TESTED AT [place] [address] (BEAKER) (test code = [place] 1538) [address] POCT-GLUCOSE [id number] 12:48:00 Test Item Value Reference Range Interpretation Comments POC-GLUCOSE METER 193 mg/dL 70-110 H TESTED AT [place] [address] (BEAKER) (test code = [place] 1538) [address] POCT-GLUCOSE [id number] 08:26:00 Test Item Value Reference Range Interpretation Comments POC-GLUCOSE METER 189 mg/dL 70-110 H TESTED AT [place] [address] (BEAKER) (test code = [place] 1538) [address] [id number] 06:40:00 Test Item Value Reference Range Interpretation Comments MAGNESIUM (BEAKER) (test code = 1.7 mg/dL 1.6-2.6 627) BASIC METABOLIC [id number] 06:40:00 Test Item Value Reference Range Interpretation Comments SODIUM (BEAKER) 138 meq/L 136-145 (test code = 381) POTASSIUM (BEAKER) 4.6 meq/L 3.5-5.1 (test code = 379) CHLORIDE (BEAKER) 106 meq/L 98-107 (test code = 382) CO2 (BEAKER) (test 24 meq/L 22-29 code = 355) BLOOD UREA NITROGEN 18 mg/dL 7-21 (BEAKER) (test code = 354) CREATININE (BEAKER) 1.04 mg/dL 0.57-1.25 (test code = 358) GLUCOSE RANDOM 156 mg/dL 70-105 H (BEAKER) (test code = 652) CALCIUM (BEAKER) 9.3 mg/dL 8.4-10.2 (test code = 697) EGFR (BEAKER) (test 69 mL/min/1.73 ESTIMA JAYLON GFR IS code = 1092) sq m NOT ACCURATE CREATININE CLEARANCE IN PREDICTING GLOMERULAR FILTRATION RATE . ESTIMATED GFR I S NOT APPLICABLE FOR DIALYSIS PATIEN TS. CBC (HEMOGRAM ONLY)2018-04-04 05:46:00 Test Item Value Reference Range Interpretation Comments WHITE BLOOD CELL COUNT (BEAKER) 6.6 K/ L 3.5-10.5 (test code = 775) RED BLOOD CELL COUNT (BEAKER) 4.09 M/ L 4.63-6.08 L (test code = 761) HEMOGLOBIN (BEAKER) (test code = 12.7 GM/DL 13.7-17.5 L 410) HEMATOCRIT (BEAKER) (test code = 38.6 % 40.1-51.0 L 411) MEAN CORPUSCULAR VOLUME (BEAKER) 94.4 fL 79.0-92.2 H (test code = 753) MEAN CORPUSCULAR HEMOGLOBIN 31.1 pg 25.7-32.2 (BEAKER) (test code = 751) MEAN CORPUSCULAR HEMOGLOBIN CONC 32.9 GM/DL 32.3-36.5 (BEAKER) (test code = 752) RED CELL DISTRIBUTION WIDTH 12.5 % 11.6-14.4 (BEAKER) (test code = 412) PLATELET COUNT (BEAKER) (test 210 K/CU MM 150-450 code = 756) MEAN PLATELET VOLUME ([facility]) 10.1 fL 9.4-12.4 (test code = 754) NUCLEATED RED BLOOD CELLS 0 /100 WBC 0-0 ([facility]) (test code = 413) POCT-GLUCOSE [id number] 21:57:00 Test Item Value Reference Range Interpretation Comments POC-GLUCOSE METER 214 mg/dL 70-110 H TESTED AT [place] [address] ([facility]) (test code = [facility] 1538) [address] POCT-GLUCOSE [id number] 16:45:00 Test Item Value Reference Range Interpretation Comments POC-GLUCOSE METER 164 mg/dL 70-110 H TESTED AT [place] [address] ([facility]) (test code = [facility] 1538) [address] POCT-GLUCOSE [id number] 12:19:00 Test Item Value Reference Range Interpretation Comments POC-GLUCOSE METER 194 mg/dL 70-110 H TESTED AT [place] [address] ([facility]) (test code = [facility] 1538) [address] POCT-GLUCOSE [id number] 10:02:00 Test Item Value Reference Range Interpretation Comments POC-GLUCOSE METER 186 mg/dL 70-110 H TESTED AT [place] [address] ([facility]) (test code = [facility] 1538) [address] CREATINE KINASE (CK), TOTAL AND [id number] 10:01:00 Test Item Value Reference Range Interpretation Comments CREATINE KINASE TOTAL ([facility]) 72 U/L 29-200 (test code = 380) CREATINE KINASE-MB ([facility]) (test 1.7 ng/mL 0.0-6.6 code = 750) CREATINE KINASE-MB INDEX ([facility]) 2.4 % (test code = 395) CK-MB Reference Range:<6.7 Normal6.7-10.0 Borderline>10.0 AbnormalTROPONIN [id number] 10:01:00 Test Item Value Reference Range Interpretation Comments TROPONIN I ([facility]) (test code = 397) < ng/mL 0.00-0.03 Troponin I (TnI) levels must be interpreted in the context of the presenting symptoms and the clinical findings. Elevated TnI levels indicate myocardial damage, but are not specific for ischemic heart disease. Elevated TnI levels are seen in patients with other cardiac conditions (including myocarditis and congestive heart failure), and slight TnI elevations occur in patients with other conditions, including sepsis, renal failure, acidosis, acute neurological disease, and persistent tachyarrhythmia.TSH/FREE T4 IF [id number] 07:14:00 Test Item Value Reference Range Interpretation Comments THYROID STIMULATING HORMONE 1.91 uIU/mL 0.35-4.94 (BEAKER) (test code = 772) [id number] 07:08:00 Test Item Value Reference Range Interpretation Comments MAGNESIUM (BEAKER) (test code = 1.6 mg/dL 1.6-2.6 627) BASIC METABOLIC [id number] 07:08:00 Test Item Value Reference Range Interpretation Comments SODIUM (BEAKER) 139 meq/L 136-145 (test code = 381) POTASSIUM (BEAKER) 4.4 meq/L 3.5-5.1 (test code = 379) CHLORIDE (BEAKER) 105 meq/L 98-107 (test code = 382) CO2 (BEAKER) (test 25 meq/L 22-29 code = 355) BLOOD UREA NITROGEN 25 mg/dL 7-21 H (BEAKER) (test code = 354) CREATININE (BEAKER) 1.06 mg/dL 0.57-1.25 (test code = 358) GLUCOSE RANDOM 121 mg/dL 70-105 H (BEAKER) (test code = 652) CALCIUM (BEAKER) 9.2 mg/dL 8.4-10.2 (test code = 697) EGFR (BEAKER) (test 68 mL/min/1.73 ESTIMA JAYLON GFR IS code = 1092) sq m NOT ACCURATE CREATININE CLEARANCE IN PREDICTING GLOMERULAR FILTRATION RATE . ESTIMATED GFR I S NOT APPLICABLE FOR DIALYSIS PATIEN TS. LIPID [id number] 07:08:00 Test Item Value Reference Range Interpretation Comments TRIGLYCERIDES (BEAKER) (test code = 151 mg/dL 540) CHOLESTEROL (BEAKER) (test code = 117 mg/dL 631) HDL CHOLESTEROL (BEAKER) (test code 36 mg/dL = 976) LDL CHOLESTEROL CALCULATED (BEAKER) 51 mg/dL (test code = 633) Triglyceride Reference Range: Low Risk <150 Borderline 150-199 High Risk 200-499 Very High Risk >=500Cholesterol Reference Range: Low Risk <200 Borderline 200-239 High Risk >240HDL Cholesterol Reference Range: Low Risk >=60 High Risk <40LDL Cholesterol Reference Range: Optimal <100 Near Optimal 100-129 Borderline 130-159 High 160-189 Very High [id number] 06:46:00 Test Item Value Reference Range Interpretation Comments D-DIMER QUANTITATIVE (BEAKER) 0.66 MG/L FEU <0.50 H (test code = 671) Intended Use: The D-Dimer Assay can be used to aid in the diagnosis of Deep Vein Thrombosis (DVT) and Pulmonary Embolism Disease (PED).In patients with low pre- test probability, various studies concerning STA Liatest D-dimer test have reported that with a cutoff value of 0.50 MG/L FEU, the Negative Predictive Value (NPV) regarding the exclusion of thrombosis is within 95-100% range.CBC W/PLT COUNT & AUTO [id number] 06:34:00 Test Item Value Reference Range Interpretation Comments WHITE BLOOD CELL COUNT (BEAKER) 8.7 K/ L 3.5-10.5 (test code = 775) RED BLOOD CELL COUNT (BEAKER) 4.20 M/ L 4.63-6.08 L (test code = 761) HEMOGLOBIN (BEAKER) (test code = 13.0 GM/DL 13.7-17.5 L 410) HEMATOCRIT (BEAKER) (test code = 39.9 % 40.1-51.0 L 411) MEAN CORPUSCULAR VOLUME (BEAKER) 95.0 fL 79.0-92.2 H (test code = 753) MEAN CORPUSCULAR HEMOGLOBIN 31.0 pg 25.7-32.2 (BEAKER) (test code = 751) MEAN CORPUSCULAR HEMOGLOBIN CONC 32.6 GM/DL 32.3-36.5 (BEAKER) (test code = 752) RED CELL DISTRIBUTION WIDTH 12.4 % 11.6-14.4 (BEAKER) (test code = 412) PLATELET COUNT (BEAKER) (test 223 K/CU MM 150-450 code = 756) MEAN PLATELET VOLUME (BEAKER) 10.3 fL 9.4-12.4 (test code = 754) NUCLEATED RED BLOOD CELLS 0 /100 WBC 0-0 (BEAKER) (test code = 413) NEUTROPHILS RELATIVE PERCENT 60 % (BEAKER) (test code = 429) LYMPHOCYTES RELATIVE PERCENT 25 % (BEAKER) (test code = 430) MONOCYTES RELATIVE PERCENT 11 % (BEAKER) (test code = 431) EOSINOPHILS RELATIVE PERCENT 3 % (BEAKER) (test code = 432) BASOPHILS RELATIVE PERCENT 1 % (BEAKER) (test code = 437) NEUTROPHILS ABSOLUTE COUNT 5.23 K/ L 1.78-5.38 (BEAKER) (test code = 670) LYMPHOCYTES ABSOLUTE COUNT 2.20 K/ L 1.32-3.57 (BEAKER) (test code = 414) MONOCYTES ABSOLUTE COUNT (BEAKER) 0.91 K/ L 0.30-0.82 H (test code = 415) EOSINOPHILS ABSOLUTE COUNT 0.24 K/ L 0.04-0.54 (BEAKER) (test code = 416) BASOPHILS ABSOLUTE COUNT (BEAKER) 0.05 K/ L 0.01-0.08 (test code = 417) IMMATURE GRANULOCYTES-RELATIVE 0 % 0-1 PERCENT (BEAKER) (test code = 2801) CREATINE KINASE (CK), TOTAL AND [id number] 00:53:00 Test Item Value Reference Range Interpretation Comments CREATINE KINASE TOTAL (BEAKER) 72 U/L 29-200 (test code = 380) CREATINE KINASE-MB (BEAKER) (test 1.6 ng/mL 0.0-6.6 code = 750) CREATINE KINASE-MB INDEX (BEAKER) 2.2 % (test code = 395) CK-MB Reference Range:<6.7 Normal6.7-10.0 Borderline>10.0 AbnormalTROPONIN [id number] 00:53:00 Test Item Value Reference Range Interpretation Comments TROPONIN I (BEAKER) (test code = 397) < ng/mL 0.00-0.03 Troponin I (TnI) levels must be interpreted in the context of the presenting symptoms and the clinical findings. Elevated TnI levels indicate myocardial damage, but are not specific for ischemic heart disease. Elevated TnI levels are seen in patients with other cardiac conditions (including myocarditis and congestive heart failure), and slight TnI elevations occur in patients with other conditions, including sepsis, renal failure, acidosis, acute neurological disease, and persistent tachyarrhythmia.POCT-GLUCOSE [id number] 20:58:00 Test Item Value Reference Range Interpretation Comments POC-GLUCOSE METER 196 mg/dL 70-110 H TESTED AT [facility] 6720 ([facility]) (test code = [place] 1538) [address] HEMOGLOBIN [id number] 20:11:00 Test Item Value Reference Range Interpretation Comments HEMOGLOBIN A1C (BEAKER) (test code = 8.4 % 4.3-6.1 H 368) LIPID [id number] 18:43:00 Test Item Value Reference Range Interpretation Comments TRIGLYCERIDES (AKER) (test code = 177 mg/dL 540) CHOLESTEROL (AKER) (test code = 127 mg/dL 631) HDL CHOLESTEROL ([facility]) (test code 37 mg/dL = 976) LDL CHOLESTEROL CALCULATED ([facility]) 55 mg/dL (test code = 633) Triglyceride Reference Range: Low Risk <150 Borderline 150-199 High Risk 200-499 Very High Risk >=500Cholesterol Reference Range: Low Risk <200 Borderline 200-239 High Risk >240HDL Cholesterol Reference Range: Low Risk >=60 High Risk <40LDL Cholesterol Reference Range: Optimal <100 Near Optimal 100-129 Borderline 130-159 High 160-189 Very High >=190HEPATIC FUNCTION [id number] 18:43:00 Test Item Value Reference Range Interpretation Comments TOTAL PROTEIN (BEAKER) (test code = 7.2 gm/dL 6.0-8.3 770) ALBUMIN (BEAKER) (test code = 1145) 4.1 g/dL 3.5-5.0 BILIRUBIN TOTAL (BEAKER) (test code 0.7 mg/dL 0.2-1.2 = 377) BILIRUBIN DIRECT (BEAKER) (test 0.2 mg/dL 0.1-0.5 code = 706) ALKALINE PHOSPHATASE (BEAKER) (test 69 U/L 40-150 code = 346) AST (SGOT) (BEAKER) (test code = 34 U/L 5-34 353) ALT (SGPT) (BEAKER) (test code = 23 U/L 6-55 347) TSH/FREE T4 IF [id number] 18:41:00 Test Item Value Reference Range Interpretation Comments THYROID STIMULATING HORMONE 2.59 uIU/mL 0.35-4.94 (BEAKER) (test code = 772) POCT-GLUCOSE [id number] 16:49:00 Test Item Value Reference Range Interpretation Comments POC-GLUCOSE METER 85 mg/dL 70-110 TESTED AT [facility] 6720 (BEAKER) (test code = [place] [address] 1538) RAD, RIBS, [id number] 15:11:00Reason for exam:->CHEST PAINReason for exam:->ABNORMAL ECGFINAL REPORT CLINICAL HISTORY: CHEST PAINABNORMAL ECG TECHNIQUE: 1 view of the chest with 4 additional views of the left ribs. COMPARISON: Chest x-ray 11/19/2015 IMPRESSION: There is no evidence for a left-sided rib fracture. The right ribs also appear intact. There are no infiltrates or effusions. The cardiomediastinal silhouette is magnified by technique with sternotomy wires.Signed: Teresa Jackson MDReport Verified Date/Time: 04/02/2018 15:11:58 Reading Location: [address] Consult Reading Room ALYSIS W/ [id number] 14:07:00 Test Item Value Reference Range Interpretation Comments COLOR (BEAKER) (test code Light Yellow = 470) CLARITY (BEAKER) (test Clear code = 469) SPECIFIC GRAVITY UA 1.009 1.001-1.035 (BEAKER) (test code = 468) PH UA (BEAKER) (test code 5.0 5.0-8.0 = 467) PROTEIN UA (BEAKER) (test Negative Negative code = 464) GLUCOSE UA (BEAKER) (test Negative Negative code = 365) KETONES UA (BEAKER) (test Negative Negative code = 371) BILIRUBIN UA (BEAKER) Negative Negative (test code = 462) BLOOD UA (BEAKER) (test Negative Negative code = 461) NITRITE UA (BEAKER) (test Negative Negative code = 465) LEUKOCYTE ESTERASE UA Negative Negative (BEAKER) (test code = 466) UROBILINOGEN UA (BEAKER) 0.2 mg/dL 0.2-1.0 (test code = 463) RBC UA (BEAKER) (test code 0 /HPF = 519) WBC UA (BEAKER) (test code 0 /HPF = 520) HYALINE CASTS (BEAKER) 3 /LPF (test code = 514) SOURCE(BEAKER) (test code Urine, Clean Catch = 2795) CREATINE KINASE (CK), TOTAL AND [id number] 14:04:00 Test Item Value Reference Range Interpretation Comments CREATINE KINASE TOTAL (BEAKER) 88 U/L 29-200 (test code = 380) CREATINE KINASE-MB (BEAKER) (test 1.7 ng/mL 0.0-6.6 code = 750) CREATINE KINASE-MB INDEX (BEAKER) 1.9 % (test code = 395) CK-MB Reference Range:<6.7 Normal6.7-10.0 Borderline>10.0 AbnormalTROPONIN [id number] 14:04:00 Test Item Value Reference Range Interpretation Comments TROPONIN I (BEAKER) (test code = 397) < ng/mL 0.00-0.03 Troponin I (TnI) levels must be interpreted in the context of the presenting symptoms and the clinical findings. Elevated TnI levels indicate myocardial damage, but are not specific for ischemic heart disease. Elevated TnI levels are seen in patients with other cardiac conditions (including myocarditis and congestive heart failure), and slight TnI elevations occur in patients with other conditions, including sepsis, renal failure, acidosis, acute neurological disease, and persistent tachyarrhythmia.BASIC METABOLIC [id number] 13:31:00 Test Item Value Reference Range Interpretation Comments SODIUM (BEAKER) 138 meq/L 136-145 (test code = 381) POTASSIUM (BEAKER) 4.6 meq/L 3.5-5.1 (test code = 379) CHLORIDE (BEAKER) 104 meq/L 98-107 (test code = 382) CO2 (BEAKER) (test 27 meq/L 22-29 code = 355) BLOOD UREA NITROGEN 32 mg/dL 7-21 H (BEAKER) (test code = 354) CREATININE (BEAKER) 1.35 mg/dL 0.57-1.25 H (test code = 358) GLUCOSE RANDOM 183 mg/dL 70-105 H (BEAKER) (test code = 652) CALCIUM (BEAKER) 9.5 mg/dL 8.4-10.2 (test code = 697) EGFR (BEAKER) (test 51 mL/min/1.73 ESTIMA JAYLON GFR IS code = 1092) sq m NOT ACCURATE CREATININE CLEARANCE IN PREDICTING GLOMERULAR FILTRATION RATE . ESTIMATED GFR I S NOT APPLICABLE FOR DIALYSIS PATIEN TS. CBC W/PLT COUNT & AUTO [id number] 13:09:00 Test Item Value Reference Range Interpretation Comments WHITE BLOOD CELL COUNT (BEAKER) 8.5 K/ L 3.5-10.5 (test code = 775) RED BLOOD CELL COUNT (BEAKER) 3.93 M/ L 4.63-6.08 L (test code = 761) HEMOGLOBIN (BEAKER) (test code = 12.2 GM/DL 13.7-17.5 L 410) HEMATOCRIT (BEAKER) (test code = 37.2 % 40.1-51.0 L 411) MEAN CORPUSCULAR VOLUME (BEAKER) 94.7 fL 79.0-92.2 H (test code = 753) MEAN CORPUSCULAR HEMOGLOBIN 31.0 pg 25.7-32.2 (BEAKER) (test code = 751) MEAN CORPUSCULAR HEMOGLOBIN CONC 32.8 GM/DL 32.3-36.5 (BEAKER) (test code = 752) RED CELL DISTRIBUTION WIDTH 12.5 % 11.6-14.4 (BEAKER) (test code = 412) PLATELET COUNT (BEAKER) (test 200 K/CU MM 150-450 code = 756) MEAN PLATELET VOLUME (BEAKER) 9.9 fL 9.4-12.4 (test code = 754) NUCLEATED RED BLOOD CELLS 0 /100 WBC 0-0 (BEAKER) (test code = 413) NEUTROPHILS RELATIVE PERCENT 53 % (BEAKER) (test code = 429) LYMPHOCYTES RELATIVE PERCENT 34 % (BEAKER) (test code = 430) MONOCYTES RELATIVE PERCENT 9 % (BEAKER) (test code = 431) EOSINOPHILS RELATIVE PERCENT 3 % (BEAKER) (test code = 432) BASOPHILS RELATIVE PERCENT 1 % (BEAKER) (test code = 437) NEUTROPHILS ABSOLUTE COUNT 4.53 K/ L 1.78-5.38 (BEAKER) (test code = 670) LYMPHOCYTES ABSOLUTE COUNT 2.92 K/ L 1.32-3.57 (BEAKER) (test code = 414) MONOCYTES ABSOLUTE COUNT (BEAKER) 0.73 K/ L 0.30-0.82 (test code = 415) EOSINOPHILS ABSOLUTE COUNT 0.24 K/ L 0.04-0.54 (BEAKER) (test code = 416) BASOPHILS ABSOLUTE COUNT (BEAKER) 0.05 K/ L 0.01-0.08 (test code = 417) IMMATURE GRANULOCYTES-RELATIVE 0 % 0-1 PERCENT (BEAKER) (test code = 7898)
--- OUTSIDE RECORDS SUMMARY | 2020-06-07 16:26 | XMS REPORT ---
:1940 Author Organization [facility] Address [address] [facility] [address] [place] [address] Care Team Providers Name Role Phone Mi Unavailable [phone] PROBLEMS Type Condition ICD9-CM [id number] Onset Condition SNOMED Code Notes Code Code Dates Status Problem Acquired E03.9 Active 113255895 hypothyroidism Problem Obesity (BMI E66.9 Active 803067741171336 30.0-34.9) Problem Hyperlipidemia, E78.5 Active 83190329 unspecified Problem Hypothyroidism E03.9 Active 88316288 Problem Depression F32.9 Active 89568493 Problem Type 2 diabetes E11.69 Active 42530291 mellitus with other specified complication Problem Essential I10 Active 31135907 hypertension Problem Coronary artery I25.118 Active 15436809 disease involving [place] heart with other form of angina pectoris, unspecified vessel or lesion type Problem Type 2 diabetes E11.69 Active 40567794 mellitus with other specified complication, unspecified whether half-way insulin use Problem 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, unspecified HF chronicity Problem Chronic kidney N18.3 Active 372623147 disease, stage 3 (moderate) Problem Type 2 diabetes E11.59 Active 00554511 mellitus with other circulatory complications Problem 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 85915736 mellitus with diabetic chronic kidney disease Problem Type 2 diabetes E11.65 Active 912284605540173 mellitus with hyperglycemia Problem Bilateral carotid I65.23 Active 275211185 artery occlusion Problem Chronic heart I50.9 Active 62308638 failure, unspecified heart failure type Problem Hypertension due I15.2 Active 130190419 to endocrine disorder 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 ALLERGIES Allergen (clinical drug Drug/Non Drug Allergy Reaction Allergy Type Onset Date Status ingredient) documented on EMR Codeine Phosphate([facility] hives Drug Allergy A ctive Code:[address]-98) ENCOUNTERS from 1940 to 2020-03-15 Encounter Location Date Provider Diagnosis [facility] Marixa Turner [address] Feb, Antoni Mi Typ e 2 diabetes Family Medicine [address], [facility] [place] [address] diabetic chron ic kidney disease E11.22 ; Chroni c kidney disease, stage 3 (modera te) N18.3 and correction (current) use o f insulin Z79.4 IMMUNIZATIONS Vaccine Route Administration Date Status FLUZONE [...] REASON FOR REFERRAL No Information VITAL SIGNS No information MEDICATIONS Medication SIG (Take, Route, Start Date End Date Status Frequency, Duration) Terbinafine HCl 250 MG 1 tablet Orally Once a Feb,May, Active day for 84 days Terbinafine HCl 250 MG 1 tablet Orally Once a Feb,May, Active day for 84 days Furosemide 20 MG TAKE 1 TABLET BY MOUTH A ctive EVERY DAY Oral for 90 Citalopram Hydrobromide 20 TAKE 1 TABLET BY MOUTH Active MG EVERY DAY IN THE MORNING Oral for 90 Levothyroxine Sodium 125 TAKE 1 TABLET BY MOUTH Active MCG EVERY DAY Oral for 90 BD Pen Needle Yumiko U/F 32G USE PEN NEEDLES Active X 4 MM DIRECTED WITH TOUJEO for 30 Dulaglutide 0.75 MG/0.5ML as directed Subcutaneous Feb, Mar, Active weekly for 30 days Metformin HCl 1000 MG TAKE 1 TABLET BY MOUTH Active TWICE A DAY Oral for 90 Lisinopril 40 MG TAKE 1 TABLET BY MOUTH A ctive TWICE A DAY Oral for 90 Amlodipine Besylate 5 MG TAKE 1 TABLET BY MOUTH Active EVERY DAY Oral for 90 Tresiba 100 UNIT/ML 15 UNITS INJECT BELOW THE Active SKIN NIGHTLY Subcutaneous for 90 Clopidogrel Bisulfate 75 MG TAKE 1 TABLET BY MOUTH Active EVERY DAY Oral for 90 Atorvastatin Calcium 80 MG TAKE 1 TABLET BY MOUTH Active EVERY DAY IN THE EVENING Oral for 90 Dulaglutide 1.5 MG/0.5ML as directed Subcutaneous Feb, 27 M 2020 Active once weekly for 30 days Magnesium 500 MG 1 capsule Orally Once a Active day PROCEDURES No Information RESULTS No Results REASON FOR VISIT No Information MEDICAL (GENERAL) HISTORY Type Description Date Medical [...] No Information ASSESSMENTS Encounter Date Diagnosis Notes Feb, 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 will titrate up to 1.5 mg IM weekly.f/u in 3 mo Next Appt Details Provider Name:Antoni Zuniga Mi, 2020-03-19 02 :00:00 PM, [address] [facility], [address], [place], [address], Insurance Providers Payer Name Payer Payer Insured Patient Coverage Coverage End Address Phone Name Relationship to Start Date Dave e Insured [employer] [phone] Leah Guevara self MEDICARE [id number] [id number] [place] [phone]
--- OUTSIDE RECORDS SUMMARY | 2020-06-07 16:26 | XMS REPORT ---
:[address] [facility] Address [address] [facility] [address] [place] [address] Care Team Providers Name Role Phone Mi Unavailable [phone] PROBLEMS Type Condition ICD9-CM [id number] Onset Condition SNOMED Code Notes Code Code Dates Status Problem Acquired E03.9 Active 915262885 hypothyroidism Problem Obesity (BMI E66.9 Active 580676144890253 30.0-34.9) Problem Hyperlipidemia, E78.5 Active 40835587 unspecified Problem Hypothyroidism E03.9 Active 44289405 Problem Depression F32.9 Active 46807609 Problem Type 2 diabetes E11.69 Active 00007991 mellitus with other specified complication Problem Essential I10 Active 37940577 hypertension Problem Coronary artery I25.118 Active 13491796 disease involving [place] heart with other form of angina pectoris, unspecified vessel or lesion type Problem Type 2 diabetes E11.69 Active 42250248 mellitus with other specified complication, unspecified whether shelter insulin use Problem 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 failure, unspecified HF chronicity Problem Chronic kidney N18.3 Active 214207379 disease, stage 3 (moderate) Problem Type 2 diabetes E11.59 Active 55069751 mellitus with other circulatory complications Problem 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 Problem Type 2 diabetes E11.65 Active 544609872284674 mellitus with hyperglycemia Problem Bilateral carotid I65.23 Active 177876354 artery occlusion Problem Chronic heart I50.9 Active 71281965 failure, unspecified heart failure type Problem Hypertension due I15.2 Active 677215283 to endocrine disorder Problem terminal carman Z79.4 Active 323483854 (current) use of insulin ALLERGIES Allergen (clinical drug Drug/Non Drug Allergy Reaction Allergy Type Onset Date Status ingredient) documented on EMR Codeine Phosphate([facility] hives Drug Allergy A ctive Code:[address]-91) ENCOUNTERS from 1940 to 2020-03-17 Encounter Location Date Provider Diagnosis [facility] [address] [facility] [address] Feb, Antoni Mi Medicare annual Family Medicine [place], [place] wellness visit, [phone] subsequent Z00. 00 IMMUNIZATIONS Vaccine Route Administration Date Status FLUZONE [...] No Information VITAL SIGNS Height 72 in Feb, Weight 228.4 lbs Feb, Temperature 97.4 degrees Fahrenheit Feb, BMI 30.97 kg/m2 Feb, Oximetry 97 % Feb, Blood pressure systolic 145 mm Hg Feb, Blood pressure diastolic 82 mm Hg Feb, MEDICATIONS Medication SIG (Take, Route, Start Date [...] Information RESULTS No Results REASON FOR VISIT Wellness [phone] MEDICAL (GENERAL) HISTORY Type Description Date Medical [...] Information ASSESSMENTS Encounter Date Diagnosis Notes Feb, Medicare annual wellness visit, marie nt (ICD-10 - Z00.00) PLAN OF TREATMENT Medication Medication Name Sig Start Date Stop Date Dulaglutide 1.5 MG/0.5ML as directed Subcutaneous once Feb, Aug, weekly for 30 days Next Appt Details SUBSEQUENT ANNUAL WELLNESS VISIT 1 YEAR Reason: Provider Name:Antoni Nadia Mi, 2020-03-19 02 :00:00 PM, [address], [address], [place], [address], Insurance Providers Payer Name Payer Payer Insured Patient Coverage Coverage End Address Phone Name Relationship to Start Date Dave e Insured [employer] [phone] Leah Guevara self MEDICARE [id number] [facility] [id number]
--- NOTE | 2020-06-07 16:49 | RAD REPORT ---
EXAM DESCRIPTION: CT - Ct Stroke Brain Wo Cont - 06/07/2020 4:34 pm CLINICAL HISTORY: TIA Headache, drowsiness, CVA symptomology COMPARISON: Ct Stroke Brain Wo Cont dated 04/23/2020 TECHNIQUE: All CT scans are performed using dose optimization technique as appropriate and may inclu de automated exposure control or mA/KV adjustment according to patient size. FINDINGS: No intracranial hemorrhage, hydrocephalus or extra-axial fluid collection.2 cm diminished density in the right frontal lobe likely related to old ischemia.No areas of brain edema or evidence of midline shift. The paranasal sinuses and mastoids are clear. The calvarium is intact. IMPRESSION: No acute intracranial abnormality. The findings were discussed with Dr. Alexandra in the ER On 06/07/2020 at 4:43 p.m. by telephone.
[2020-06-07 17:02] LABS: Absolute Lymphocytes (CBC) 2.9 K/uL (0.7-4.9); Basophils % 1.2 % (0-1.3); Hematocrit 39.9 % (39.6-49.0); Lymphocytes % 32.7 % (15.3-44.8); MPV 9.1 fL (7.6-11.3); RBC Red Blood Cell Count 4.31 M/uL (4.33-5.43)
[2020-06-07 17:16] LABS: Potassium 4.3 mmol/L (3.5-5.1)
--- NOTE | 2020-06-07 17:22 | RAD REPORT ---
EXAM DESCRIPTION: CT - Head angio - 06/07/2020 5:12 pm CLINICAL HISTORY: facial weakness, possible CVA Headache, drowsiness, CVA symptomology COMPARISON: Ct Stroke Brain Wo Cont dated 06/07/2020; Ct Stroke Brain Wo Cont dated 04/23/2020 TECHNIQUE: CT angiography of the head was performed with MIPs. All CT scans are performed using dose optimization technique as appropriate and may include automated exposure control or mA/KV adjustment according to patient size. FINDINGS: No evidence of aneurysm is detected. No flow-limiting stenosis or vascular malformation id entified. Antegrade flow is seen in the vertebral artery. The right vertebral artery is not well seen may be qu ite diminutive. The visualized dural venous sinuses are patent. IMPRESSION: No significant flow abnormality is detected.
--- NOTE | 2020-06-07 17:24 | RAD REPORT ---
EXAM DESCRIPTION: CT - Neck Angio - 06/07/2020 5:12 pm CLINICAL HISTORY: facial weakness Headache, drowsiness, CVA symptomology. COMPARISON: No comparisons TECHNIQUE: CT angiography of the neck vessels was performed with MIPs. All CT scans are performed using dose optimization technique as appropriate and may include automated exposure control or mA/KV adjustment according to patient size. FINDINGS: A left aortic arch is identified with normal three vessel configuration of the great vesse ls. No significant flow abnormality is seen of the common carotid bilaterally. Bilateral internal carotid artery stent are noted. Moderate hard plaquing is seen involving both beltran tid bulbs however without flow limitation through either stent, both of which appear patent. The right vertebral artery is diminutive and likely terminates in PICA, normal variant. Left vertebra l artery is normal. IMPRESSION: Bilateral patent internal carotid artery stents are noted without significant flow alter ation identified.
[2020-06-07] MEDS ORDERED: ASPIRIN 81 MG CHEWABLE TABLET ONE (17:34)
--- NOTE | 2020-06-07 17:34 | ER ---
Nurse's Notes [facility] Name: Juanpablo Guevara Age: 80 yrs Sex: Male : 1940 Arrival Date: 06/07/2020 Time: 16:23 Bed 20 Private MD: Diagnosis: Cerebral infarction;Facial weakness Presentation: 06/07 16:27 Chief complaint: Patient states: R sided weakness, unable to recall words and R sided ca1 facial droop this morning at 0730. Then it resolved. 20 - 30 minutes ago, my daughter said my face on the R sided was drooping and he couldn't remember words. VAN negative. A\T\Ox4. Negative slurring at this time. Negative aphasia at this time. Noticed slight R sided facial droop. Coronavirus screen: Client denies travel out of the [place] in the last 14 days. At this time, the client does not indicate any symptoms associated with coronavirus-19. Ebola Screen: Patient negative for fever greater than or equal to 101.5 degrees Fahrenheit, and additional compatible Ebola Virus Disease symptoms Patient denies exposure to infectious person. Patient denies travel to an Ebola-affected area in the 21 days before illness onset. No symptoms or risks identified at this time. Risk Assessment: Do you want to hurt yourself or someone else? Patient reports no desire to harm self or others. Onset of symptoms was June 07, 2020 at 16:00. 16:27 Method Of Arrival: Wheelchair ca1 16:27 Acuity: CHRISTOPHE 2 ca1 16:30 The patients blood glucose was checked before arriving to the hospital and was found to ca1 be normal. An acute neurological deficit is present. The charge nurse has been notified. Initial Sepsis Screen: Does the patient meet any 2 criteria? No. Patient's initial sepsis screen is negative. Does the patient have a suspected source of infection? No. Patient's initial sepsis screen is negative. Triage Assessment: 16:30 The onset of the patients symptoms was June 07, 2020 at 06:00. General: Appears in bp no apparent distress. comfortable, Behavior is cooperative, appropriate for age, anxious. Pain: Denies pain. EENT: No deficits noted. Neuro: Facial droop on right, Reports dizziness. Cardiovascular: No deficits noted. Respiratory: No deficits noted. GI: No signs and/or symptoms were reported involving the gastrointestinal system. : No signs and/or symptoms were reported regarding the genitourinary system. Derm: No deficits noted. Musculoskeletal: No deficits noted. Stroke Activation: Symptom onset < 3 hours Physician: Stroke Attending; Name: ; Notified At: ; Arrived At: Physician: Chief Stroke Resident; Name: ; Notified At: ; Arrived At: Physician: Stroke Resident; Name: ; Notified At: ; Arrived At: Physician: ED Attending; Name: ; Notified At: ; Arrived At: Physician: ED Resident; Name: ; Notified At: ; Arrived At: Historical: - Allergies: 16:41 Codeine; ca1 - PMHx: 16:41 Hypertension; CVA; Diabetes - NIDDM; High Cholesterol; ca1 - Immunization history:: Adult Immunizations up to date, Adult Immunizations up to date, Pneumococcal vaccine is up to date, Flu vaccine is up to date. - Social history:: Smoking status: Patient denies any tobacco usage or history of. Smoking status: Patient denies any tobacco usage or history of. - Family history:: not pertinent. - Hospitalizations: : No recent hospitalization is reported. Screenin:30 Abuse screen: Denies threats or abuse. Denies injuries from another. Nutritional bp screening: No deficits noted. Tuberculosis screening: No symptoms or risk factors identified. Fall Risk None identified. Assessment: 16:29 Reassessment: Pt in CT at this time. ca1 16:38 VAN Scoring: Arm Drift: Patients demonstrates NO arm weakness. Patient is VAN Negative. bp The patient has not been NPO before screening. The patient is alert, and able to follow commands. The patient does not exhibit slurred or garbled speech. The patient is not exhibiting difficulty speaking. The patient does not exhibit difficulty understanding words. The patient is able to swallow own secretions with no drooling or need for suction. Patient tolerated one teaspoon of water. No drooling, immediate coughing, gurgling, or clearing of the throat was noted. The patient tolerated 90mL of water. No drooling, immediate coughing, gurgling, or clearing of the throat was noted. The patient passed the bedside swallow screening. Oral medications may be given as ordered. Contact Physician for further diet orders. Provider notified of bedside swallow screening results: Noe Alexandra MD. T-PA (Activase) Screening: Contraindications: Patient reports onset of signs and symptoms of stroke greater than 6 hours ago:. Reassessment: PT RETURNED FROM CT. Pain: Denies pain. Neuro: Level of Consciousness is awake, alert, obeys commands, Oriented to person, place, time, situation, Electrocardiographic Technician are equal bilaterally Moves all extremities. Full function Facial droop on right. 19:59 General: Appears comfortable, Behavior is calm, cooperative. Pain: Denies pain. Neuro: rv Level of Consciousness is awake, alert, obeys commands, Oriented to person, place, time, situation. Cardiovascular: Patient's skin is warm and dry. Rhythm is sinus bradycardia. Respiratory: Breath sounds are clear bilaterally. Derm: Skin is intact. Vital Signs: 16:37 BP 179 / 76; Pulse 59; Resp 17 S; Temp 97.6(TE); Pulse Ox 97% on R/A; ca1 17:30 BP 139 / 96; Pulse 60; Resp 18; Pulse Ox 100% ; bp 18:30 BP 180 / 95; Pulse 62; Resp 14; Pulse Ox 100% ; bp 19:58 BP 166 / 81; Pulse 57; Resp 15; Pulse Ox 100% on R/A; rv 20:45 BP 161 / 74; Pulse 57; Resp 16; Temp 98; Pulse Ox 100% on R/A; rv NIH Stroke Scale Scores: 16:38 NIHSS Score: 1 bp 16:59 NIHSS Score: 2 morning nanny Course: 16:23 Patient arrived in ED. ag5 16:26 Nathanael Grace, RN is Primary Nurse. bp 16:27 Arm band placed on right wrist. ca1 16:28 Noe Alexandra MD is Attending Physician. rn 16:29 Triage completed. ca1 16:30 Patient has correct armband on for positive identification. Bed in low position. Call bp light in reach. Side rails up X2. 16:42 Inserted saline lock: 20 gauge in right forearm, using aseptic technique. Blood bp collected. 17:33 Tj Robbins is Hospitalizing Provider. rn 19:00 No provider procedures requiring assistance completed. Patient admitted, IV remains in bp place. Administered Medications: 17:05 Drug: Aspirin Chewable Tablet 324 mg Route: PO; bp 19:57 Follow up: Response: No adverse reaction rv 17:05 Drug: foLIC Acid 1 mg Route: IVPB; Site: right antecubital; bp 19:57 Follow up: IV Status: Completed infusion rv Point of Care Testing: Blood Glucose: 16:36 Blood Glucose: 133 mg/dL; ca1 Ranges: Outcome: 17:33 Decision to Hospitalize by Provider. rn 19:59 Admitted to Med/surg accompanied by tech, via wheelchair, room 203, Other sbar, ekg rv Report called to myrna santiago 19:59 Condition: stable 19:59 Instructed on the need for admit. 20:46 Patient left the ED. rv NIH Stroke Scale - NIH Stroke Score Date: 06/07/2020 Time: 16:38 Total Score = 1 1a. Level of Consciousness (LOC) - 0(Alert) 1b. Level of Consciousness (LOC) (Year \T\ Age) - 0(Both) 1c. LOC Commands (Open \T\ Closes Eyes/Map Compiler) - 0(Both) 2. Best Gaze (Lateral Gaze Paresis) - 0(Normal) 3. Visual Field Loss - 0(No visual loss) 4. Facial Palsy - 1(Minor Paralysis) 5a. Left Arm: Motor (10-second hold) - 0(No drift) 5b. Right Arm: Motor (10-second hold) - 0(No drift) 6a. Left Leg: Motor (5-second hold - always test supine) - 0(No drift) 6b. Right Leg: Motor (5-second hold - always test supine) - 0(No drift) 7. Limb Ataxia (finger/nose \T\ heel/gomes - test with eyes open) - 0(Absent) 8. Sensory Loss (pinprick arms/legs/face) - 0(Normal) 9. Best Language: Aphasia (description/naming/reading) - 0(No aphasia) 10. Dysarthria (speech clarity - read or repeat words) - 0(Normal) 11. Extinction and Inattention (visual/tactile/auditory/spatial/personal) - 0(No abnormality) Initials: bp NIH Stroke Scale - NIH Stroke Score Date: 06/07/2020 Time: 16:59 Total Score = 2 1a. Level of Consciousness (LOC) - 0(Alert) 1b. Level of Consciousness (LOC) (Year \T\ Age) - 0(Both) 1c. LOC Commands (Open \T\ Closes Eyes/Map Compiler) - 0(Both) 2. Best Gaze (Lateral Gaze Paresis) - 0(Normal) 3. Visual Field Loss - 0(No visual loss) 4. Facial Palsy - 2(Partial paralysis) 5a. Left Arm: Motor (10-second hold) - 0(No drift) 5b. Right Arm: Motor (10-second hold) - 0(No drift) 6a. Left Leg: Motor (5-second hold - always test supine) - 0(No drift) 6b. Right Leg: Motor (5-second hold - always test supine) - 0(No drift) 7. Limb Ataxia (finger/nose \T\ heel/gomes - test with eyes open) - 0(Absent) 8. Sensory Loss (pinprick arms/legs/face) - 0(Normal) 9. Best Language: Aphasia (description/naming/reading) - 0(No aphasia) 10. Dysarthria (speech clarity - read or repeat words) - 0(Normal) 11. Extinction and Inattention (visual/tactile/auditory/spatial/personal) - 0(No abnormality) Initials: rn Signatures: Noe Alexandra MD MD rn Peltier, Brian RN RN Dakota Watson RN RN rv Acob, CONCHIS Ruelas RN ca1 Daniela, Esther ag5 Corrections: (The following items were deleted from the chart) 16:39 16:27 Chief complaint: Patient states: R sided weakness, unable to recall words ca1 and R sided facial droop this morning at 0730. Then it resolved. 20 - 30 minutes ago, my daughter said my face on the R sided was drooping and he couldn't remember words. ca1 20:45 19:59 Admitted to Med/surg accompanied by tech, via wheelchair, room 203, Other rv sbar, ekg rv
--- NOTE | 2020-06-07 17:34 | EDPHYS ---
Physician Documentation [facility] Name: Juanpablo Guevara Age: 80 yrs Sex: Male : 1940 Arrival Date: 06/07/2020 Time: 16:23 Bed 20 Private MD: ED Physician Noe Alexandra HPI: 06/07 16:41 This 80 yrs old Male presents to ER via Wheelchair with complaints of S/S of rn Possible Stroke. 16:41 The patient's problem is reported as a facial droop, dysphasia. Onset: The rn symptoms/episode began/occurred this morning. Duration: The episodes are intermittent. The symptoms are alleviated by nothing. The symptoms are aggravated by nothing. Severity of symptoms: At their worst the symptoms were moderate in the emergency department the symptoms have improved. The patient has experienced similar episodes in the past. The patient has been recently been admitted at [facility]. Per report, began around 0730, with facial weakness, trouble getting words out, and right sided weakness, similar to episode last month when diagnosed with stroke. Reports present for a few hours, then got better, then happened again. Now symptoms present for about 40 min - 1hour. Speech improving and confusion improving, only reports right facial weakness. . Historical: - Allergies: 16:41 Codeine; ca1 - PMHx: 16:41 Hypertension; CVA; Diabetes - NIDDM; High Cholesterol; ca1 - Immunization history:: Adult Immunizations up to date, Adult Immunizations up to date, Pneumococcal vaccine is up to date, Flu vaccine is up to date. - Social history:: Smoking status: Patient denies any tobacco usage or history of. Smoking status: Patient denies any tobacco usage or history of. - Family history:: not pertinent. - Hospitalizations: : No recent hospitalization is reported. ROS: 16:59 Constitutional: Negative for fever, chills, and weight loss, Eyes: Negative for injury, rn pain, redness, and discharge, Neck: Negative for injury, pain, and swelling, Cardiovascular: Negative for chest pain, palpitations, and edema, Respiratory: Negative for shortness of breath, cough, wheezing, and pleuritic chest pain, Abdomen/GI: Negative for abdominal pain, nausea, vomiting, diarrhea, and constipation, Back: Negative for injury and pain, MS/Extremity: Negative for injury and deformity, Skin: Negative for injury, rash, and discoloration, Neuro: Negative for headache, numbness, tingling, and seizure, + right facial weakness, + speech abnormality Exam: 16:59 Constitutional: This is a well developed, well nourished patient who is awake, alert, rn and in no acute distress. Head/Face: Normocephalic, atraumatic. Eyes: Pupils equal round and reactive to light, extra-ocular motions intact. ENT: Mucous membranes moist. Cardiovascular: Regular rate and rhythm. No pulse deficits. Respiratory: No increased work of breathing, no retractions or nasal flaring. Abdomen/GI: soft, non-tender MS/ Extremity: Pulses equal, no cyanosis. Neuro: Awake and alert, GCS 15, oriented to person, place, time, and situation. + right lower facial droop. No weakness of forehead. Motor strength 5/5 in all extremities. Sensory grossly intact. Cerebellar exam normal. Normal gait. Vital Signs: 16:37 BP 179 / 76; Pulse 59; Resp 17 S; Temp 97.6(TE); Pulse Ox 97% on R/A; ca1 17:30 BP 139 / 96; Pulse 60; Resp 18; Pulse Ox 100% ; bp 18:30 BP 180 / 95; Pulse 62; Resp 14; Pulse Ox 100% ; bp 19:58 BP 166 / 81; Pulse 57; Resp 15; Pulse Ox 100% on R/A; rv 20:45 BP 161 / 74; Pulse 57; Resp 16; Temp 98; Pulse Ox 100% on R/A; rv NIH Stroke Scale Scores: 16:38 NIHSS Score: 1 bp 16:59 NIHSS Score: 2 rn MDM: 16:28 Patient medically screened. rn 16:47 ED course: MRI on 04/23/20 shows subacute infarction right frontal lobe, not TPA rn candidate due to CVA within last 3 months, also improving symptoms. Ordering CTA head and neck to rule out LVO.. 17:32 ED course: Consulted with Dr. Chase, will admit patient to hospitalist service given rn not TPA candidate and no flow abnormality on CT angio head/neck. Given aspirin and folic acid. Explained all of this to family and patient. . 06/07 16:46 Order name: Basic Metabolic Panel rn 06/07 16:46 Order name: CBC with Diff rn 06/07 16:46 Order name: Protime (+inr) rn 06/07 16:46 Order name: Ptt, Activated rn 06/07 16:49 Order name: Glucose, Ancillary Testing; Complete Time: 17:02 EDMS 06/07 16:49 Order name: Glucose, Ancillary Testing; Complete Time: 17:02 EDMS 06/07 16:30 Order name: CT Stroke Brain w/o Contrast ca1 06/07 16:45 Order name: CT Head Angio rn 06/07 17:07 Order name: Protime (+INR); Complete Time: 17:29 EDMS 06/07 17:07 Order name: PTT, Activated Partial Thromb; Complete Time: 17:29 EDMS 06/07 17:16 Order name: Basic Metabolic Panel; Complete Time: 17:29 EDMS 06/07 17:22 Order name: CBC with Automated Diff; Complete Time: 17:29 EDMS 06/07 18:29 Order name: COVID-19: asymptomatic admission iw 06/07 20:33 Order name: SARS-COV-2 RT PCR EDNY 06/07 16:45 Order name: CT Neck Angio rn 06/07 16:46 Order name: Stroke CXR 1 View rn 06/07 16:46 Order name: EKG; Complete Time: 16:47 rn 06/07 16:46 Order name: Accucheck; Complete Time: 16:57 rn 06/07 16:46 Order name: Cardiac monitoring; Complete Time: 16:57 rn 06/07 16:46 Order name: EKG - Nurse/Tech; Complete Time: 19:57 rn 06/07 16:46 Order name: IV Saline Lock; Complete Time: 16:57 rn 06/07 16:46 Order name: Labs collected and sent; Complete Time: 16:57 rn 06/07 16:46 Order name: NPO; Complete Time: 16:57 rn 06/07 16:46 Order name: O2 Per Protocol; Complete Time: 16:57 rn 06/07 16:50 Order name: CT; Complete Time: 17:02 EDMS 06/07 17:24 Order name: CT; Complete Time: 17:29 EDMS 06/07 17:25 Order name: CT; Complete Time: 17:29 EDMS 06/07 17:36 Order name: RAD; Complete Time: 19:02 EDNY 06/07 16:46 Order name: O2 Sat Monitoring; Complete Time: 16:57 rn 06/07 16:46 Order name: Stroke Swallow Screen; Complete Time: 16:57 rn Administered Medications: 17:05 Drug: Aspirin Chewable Tablet 324 mg Route: PO; bp 19:57 Follow up: Response: No adverse reaction rv 17:05 Drug: foLIC Acid 1 mg Route: IVPB; Site: right antecubital; bp 19:57 Follow up: IV Status: Completed infusion rv Point of Care Testing: Blood Glucose: 16:36 Blood Glucose: 133 mg/dL; ca1 Ranges: Critical Glucose Levels:Adult <50 mg/dl or >400 mg/dl <40 mg/dl or >180 mg/dl Disposition: 06/07/20 17:33 Hospitalization ordered by Tj Robbins for Inpatient Admission. Preliminary diagnosis are Cerebral infarction, Facial weakness. - Bed requested for Telemetry/MedSurg (Inpatient). - Status is Inpatient Admission. rv - Condition is Stable. - Problem is new. - Symptoms have improved. NIH Stroke Scale - NIH Stroke Score Date: 06/07/2020 Time: 16:38 Total Score = 1 1a. Level of Consciousness (LOC) - 0(Alert) 1b. Level of Consciousness (LOC) (Year \T\ Age) - 0(Both) 1c. LOC Commands (Open \T\ Closes Eyes/Numerical Tool Programmer) - 0(Both) 2. Best Gaze (Lateral Gaze Paresis) - 0(Normal) 3. Visual Field Loss - 0(No visual loss) 4. Facial Palsy - 1(Minor Paralysis) 5a. Left Arm: Motor (10-second hold) - 0(No drift) 5b. Right Arm: Motor (10-second hold) - 0(No drift) 6a. Left Leg: Motor (5-second hold - always test supine) - 0(No drift) 6b. Right Leg: Motor (5-second hold - always test supine) - 0(No drift) 7. Limb Ataxia (finger/nose \T\ heel/gomes - test with eyes open) - 0(Absent) 8. Sensory Loss (pinprick arms/legs/face) - 0(Normal) 9. Best Language: Aphasia (description/naming/reading) - 0(No aphasia) 10. Dysarthria (speech clarity - read or repeat words) - 0(Normal) 11. Extinction and Inattention (visual/tactile/auditory/spatial/personal) - 0(No abnormality) Initials: bp NIH Stroke Scale - NIH Stroke Score Date: 06/07/2020 Time: 16:59 Total Score = 2 1a. Level of Consciousness (LOC) - 0(Alert) 1b. Level of Consciousness (LOC) (Year \T\ Age) - 0(Both) 1c. LOC Commands (Open \T\ Closes Eyes/Numerical Tool Programmer) - 0(Both) 2. Best Gaze (Lateral Gaze Paresis) - 0(Normal) 3. Visual Field Loss - 0(No visual loss) 4. Facial Palsy - 2(Partial paralysis) 5a. Left Arm: Motor (10-second hold) - 0(No drift) 5b. Right Arm: Motor (10-second hold) - 0(No drift) 6a. Left Leg: Motor (5-second hold - always test supine) - 0(No drift) 6b. Right Leg: Motor (5-second hold - always test supine) - 0(No drift) 7. Limb Ataxia (finger/nose \T\ heel/gomes - test with eyes open) - 0(Absent) 8. Sensory Loss (pinprick arms/legs/face) - 0(Normal) 9. Best Language: Aphasia (description/naming/reading) - 0(No aphasia) 10. Dysarthria (speech clarity - read or repeat words) - 0(Normal) 11. Extinction and Inattention (visual/tactile/auditory/spatial/personal) - 0(No abnormality) Initials: rn Signatures: Dispatcher [employer] EDNY Autumn Mosquera RN RN dw Nieto, Roman, MD MD rn Attema, Lee, STUDIO ASSOCIATE-C STUDIO ASSOCIATE-Cla1 Nathanael Grace RN RN bp Dakota Alvarado RN RN rv Acob, Jessenia, RN RN ca1 Corrections: (The following items were deleted from the chart) 18:59 17:33 Hospitalization Ordered by Tj Robbins for Inpatient Admission. bao Preliminary diagnosis is Cerebral infarction; Facial weakness. Bed requested for Telemetry/MedSurg (Inpatient). Status is Inpatient Admission. Condition is Stable. Problem is new. Symptoms have improved. rn 20:46 18:59 06/07/2020 17:33 Hospitalization Ordered by Tj Robbins for Inpatient rv Admission. Preliminary diagnosis is Cerebral infarction; Facial weakness. Bed requested for Telemetry/MedSurg (Inpatient). Status is Inpatient Admission. Condition is Stable. Problem is new. Symptoms have improved. dw
[2020-06-07] MEDS ORDERED: FOLIC ACID 5 MG/ML VIAL ONE (17:35)
--- NOTE | 2020-06-07 17:35 | RAD REPORT ---
EXAM DESCRIPTION: RAD - Chest Single View - 06/07/2020 5:24 pm CLINICAL HISTORY: facial weakness Chest pain. COMPARISON: Chest Single View dated 04/23/2020; CHEST SINGLE VIEW dated 10/14/2009 FINDINGS: Portable technique limits examination quality. The lungs are grossly clear. The heart is normal in size. No displaced fractures.Sternotomy wires. IMPRESSION: No acute intrathoracic process suspected.
--- NOTE | 2020-06-07 18:59 | P.HP ---
Certification for Inpatient Patient admitted to: Inpatient With expected LOS: >2 Midnights Patient will require the following post-hospital care: None Practitioner: I am a practitioner with admitting privileges, knowledge of patient current condition, hospital course, and medical plan of care. Services: Services provided to patient in accordance with Admission requirements found in Title 42 Section 412.3 of the Code of Federal Regulations <Saleem Saravia - Last Filed: 06/07/20 18:54> Patient History Date of Service: 06/07/20 Primary Care Provider: Dr. Mi Reason for admission: Facial weakness History of Present Illness: 72-year-old male with history of hypertension, hyperlipidemia, hypoth yroidism, CAD S/P CABG x4 vessel, PAD with previous stenting of carotids approximately 5 years ago, CVA x2 previously presents to the emergency department for right-sided facial droop. Patient arrived to the emergency department just prior to 5 cm, patient reports symptoms began around 8:00 a.m.. Patient not candidate for TPA due to time of onset and recent confirmed CVA. Patient was admitted on 04/23/2024 similar symptoms had stroke workup that revealed moderate narrowing M2 segment of the right middle cerebral artery in addition to severe stenosis right and left carotid bulbs and proximal right and left internal carotid arteries. Patient was transferred to [facility] for evaluation and possible intra-arterial intervention of the carotids. After speaking with the patient and his daughter who is at the bedside they do not recall any discussion about this while they were there but the patient did had a loop recorder inserted to rule out atrial fibrillation or other arrhythmias. Patient was discharged on Plavix, aspirin in addition to his other home medications and has been doing well since. Patient has NIH score of 2 due to right-sided facial weakness, daughter reports that when she was with him prior to 5:00 p.m. he was having some difficulty forming words and sentences but this has since improved. Daughter also reports that the right-sided facial droop has improved mildly. CT angiogram head and neck as well as CT head without contrast unremarkable aside from bilateral patent internal carotid artery stents noted without significant flow alteration. Labs unremarkable. ED provider wishes to admit patient for further evaluation and management. - Past Medical/Surgical History Diabetic: Yes -: Hypertension -: Diabetes mellitus type 2 -: Hypothyroidism -: Hyperlipidemia -: Cardiac Bypass x4 vessel -: Carotid artery stenting approximately 2014 Psychosocial/ Personal History: Patient is retired, lives with family. - Family History Mother -: Heart disease Father -: Heart disease - Social History Smoking Status: Former smoker Alcohol use: Yes Caffeine use: Yes Place of Residence: Home <Saleem Saravia - Last Filed: 06/07/20 18:54> Date of Service: 06/15/20 <domenico montejo - Last Filed: 06/15/20 18:53> Allergies codeine Allergy (Verified 06/07/20 21:21) Hives Home Medications: Atorvastatin Calcium [Lipitor] 1 tab PO DAILY 04/23/20 Citalopram Hydrobromide [Citalopram HBr] 10 mg PO DAILY 04/23/20 Clopidogrel Bisulfate [Plavix*] 1 tab PO DAILY 04/23/20 Levothyroxine [Synthroid*] 1 tab PO DAILY 04/23/20 Magnesium Oxide [Magnesium] 1 tab PO DAILY 04/23/20 Metformin HCl 1 tab PO BID 04/23/20 terbinafine HCL [Terbinafine HCl] 1 tab PO DAILY 04/23/20 Folic Acid 1 mg PO DAILY #30 tablet 04/24/20 Amlodipine [Norvasc*] 5 mg PO DAILY 06/07/20 Aspirin Chewable [Aspirin Chewable*] 81 mg PO DAILY 06/07/20 Dulaglutide [Trulicity] 1.5 mg SQ EVERY 7TH DAY 06/07/20 lisinopriL [Lisinopril] 40 mg PO BID 06/07/20 Review of Systems 10-point ROS is otherwise unremarkable Neurological: Weakness (Right-sided facial weakness), Change in Speech (Have since resolved) <Saleem Saravia - Last Filed: 06/07/20 18:54> Physical Examination - Physical Exam General: Alert, In no apparent distress, Oriented x3 HEENT: Atraumatic, Normocephalic, PERRLA, Mucous membr. moist/pink Neck: Supple Respiratory: Normal air movement Cardiovascular: Normal pulses, Regular rate/rhythm, Normal S1 S2 Capillary refill: <2 Seconds Gastrointestinal: Normal bowel sounds, Soft and benign, No tenderness, No masses, No rebound, No guarding Musculoskeletal: No contractures, No erythema, No tenderness Integumentary: No tenderness/swelling, No erythema, No warmth Neurological: Normal gait, Normal speech, Normal strength at 5/5 x4 extr, Normal tone, Sensation intact, Other (Mild right-sided facial droop noted) - Studies Laboratory Data (last 24 hrs) 06/07/20 16:37: PT 11.8, INR 1.00, APTT 28.4 06/07/20 16:37: WBC 8.9, Hgb 13.1 L, Hct 39.9, Plt Count 208 06/07/20 16:37: Sodium 140, Potassium 4.3, BUN 12, Creatinine 1.21, Glucose 139 H <Saleem Saravia - Last Filed: 06/07/20 18:54> Assessment and Plan - Plan Assessment Right-sided facial droop suspect ischemic CVA Diabetes mellitus type 2 Hypertension Hyperlipidemia Hypothyroidism CAD S/P CABG PAD S/P carotid stenting Plan Right-sided facial droop suspect ischemic CVA: Continue aspirin, Plavix, folic acid. MRI stroke protocol ordered although patient does have a loop recorder, will have to see if this is compatible with MRI. Will attempt to obtain records from [facility] from previous admission when patient had thorough stroke evaluation a loop recorder insertion. Monitor on telemetry, neuro checks. Physical and speech therapy consult in place. Neurology consult in place. Appreciate further input from neurology. Diabetes mellitus type 2: A.c. HS Accu-Cheks, sliding scale insulin therapy. Hypertension: Continue home medications lisinopril and amlodipine, will adjust as necessary. Hyperlipidemia: Continue atorvastatin 80 mg Hypothyroidism: Continue levothyroxine, obtain thyroid panel with morning labs. CAD S/P CABG: Continue aspirin, Plavix. Monitor on telemetry. Attempt to obtain loop recorder results. PAD S/P carotid stenting: Continue aspirin Plavix, neck CTA without significant flow abnormality. Attempt to obtain results from ultrasound carotids performed approximately 1 month ago at [facility]. Discharge Plan: Home Plan to discharge in: 48 Hours - Advance Directives Does patient have a Living Will: No Does patient have a Durable POA for Healthcare: No - Code Status/Comfort Care Code Status Assessed: Yes (Full code) Critical Care: No Time Spent Managing Pts Care (In Minutes): 55 <Saleem Saravia - Last Filed: 06/07/20 18:54> Physician Review: Patient Assessed, Agree with Above Assessment and Plan Physician Review Additional Text: CVA DM type 2. CVA work up-MRI of brain ASA, Plavix. <domenico montejo - Last Filed: 06/15/20 18:53>
[2020-06-07] MEDS ORDERED: ACETAMINOPHEN 500 MG TAB PO PRN (21:16)
[2020-06-07] MEDS ORDERED: ONDANSETRON 4 MG/2 ML VIAL IV PRN (21:16)
[2020-06-07] MEDS: INSULIN -REGULAR HUMAN 50 UNIT/0.5 ML ML SQ SCH (21:16)
[2020-06-07] MEDS: ATORVASTATIN 80 MG TAB PO SCH ×2 (21:16→22:13)
[2020-06-07 21:17] VITALS: BMI 28.8
[2020-06-07] MEDS: lisinopriL 20 MG TAB PO SCH (22:13)
[2020-06-08 01:28] VITALS: O2SAT 99
[2020-06-08 04:19] LABS: Absolute Lymphocytes (CBC) 2.5 K/uL (0.7-4.9); Basophils % 0.9 % (0-1.3); Hematocrit 36.2 % (39.6-49.0); Lymphocytes % 31.4 % (15.3-44.8); MPV 8.9 fL (7.6-11.3); RBC Red Blood Cell Count 3.94 M/uL (4.33-5.43)
[2020-06-08 04:38] LABS: Magnesium 1.7 mg/dL (1.8-2.4); Potassium 4.3 mmol/L (3.5-5.1); Thyroid Stimulating Hormone 1.61 uIU/mL (0.360-3.740)
[2020-06-08] MEDS ORDERED: LEVOTHYROXINE SOD 0.125 MG TAB PO SCH (06:30)
[2020-06-08] MEDS ORDERED: MAGNESIUM SULFATE 1 gm IVPB 1 GM/100 ML BAG IV ONE (06:35)
[2020-06-08] MEDS: INSULIN -REGULAR HUMAN 50 UNIT/0.5 ML ML SQ SCH ×2 (07:30→11:30)
[2020-06-08] MEDS ORDERED: ASPIRIN EC 81 MG TAB PO SCH (09:00)
[2020-06-08] MEDS ORDERED: FUROSEMIDE 20 MG TABLET PO SCH (09:00)
[2020-06-08] MEDS ORDERED: CITALOPRAM 10 MG TABLET PO SCH (09:00)
[2020-06-08] MEDS ORDERED: AMLODIPINE 5 MG TAB PO SCH (09:00)
[2020-06-08] MEDS ORDERED: FOLIC ACID 1 MG TABLET PO SCH (09:00)
[2020-06-08] MEDS ORDERED: CLOPIDOGREL 75 MG TABLET PO SCH (09:00)
[2020-06-08] MEDS ORDERED: ENOXAPARIN 40 MG/0.4 ML SQ SCH (09:00)
--- NOTE | 2020-06-08 09:14 | RAD REPORT ---
EXAM DESCRIPTION: MRI - Brain W/Wo Cont - 06/08/2020 8:41 am CLINICAL HISTORY: Right facial weakness/numbness COMPARISON: April 2020 MRI TECHNIQUE: Axial, sagittal, and coronal magnetic images of the brain were obtained. 20 cc MultiHance administered intravenously FINDINGS: 4 centimeter area of abnormal signal is present within the right frontal lobe/insular derrick on compatible with acute infarct. 2 x 0.2 centimeter area of increased signal is present within the deep white matter of the right fron esperanza lobe compatible with subacute infarct Old bilateral infarctions are noted. The ventricles are normal in caliber. No a significant bnormal enhancement within the brain is seen. An extra-axial fluid collection is not noted. Fluid within the sinuses/mastoids is not seen IMPRESSION: 4 centimeter area of abnormal signal is present within the right frontal lobe/insular re gion compatible with acute infarct.
--- NOTE | 2020-06-08 09:26 | RAD REPORT ---
EXAM DESCRIPTION: MRI - MRA Head Wo Cont - 06/08/2020 8:47 am CLINICAL HISTORY: Right facial weakness/numbness COMPARISON: April 2020 TECHNIQUE: Magnetic resonance angiogram was performed. 3D MIPS reconstruction performed FINDINGS: Since the prior examination there has been an occlusion of a anterior branch of the left m iddle cerebral artery. Chronic stenosis of a branch of the right middle cerebral artery. No other significant finding. IMPRESSION: Acute occlusion of an anterior branch of the left middle cerebral artery
--- NOTE | 2020-06-08 09:34 | RAD REPORT ---
EXAM DESCRIPTION: MRI - MRA Neck W/Wo Cont - 06/08/2020 8:41 am CLINICAL HISTORY: Right facial weakness/numbness COMPARISON: CT angiogram neck 06/07/2020 TECHNIQUE: Magnetic resonance angiogram of the neck was performed. 20 cc MultiHance was administered intravenously. 3D MIPS reconstruction performed FINDINGS: Diminished signal and signal voids are present within portions of the distal common caroti d and proximal internal carotid arteries bilaterally. These are secondary to artifact from stents. Th e CT angiogram demonstrates the stents to be patent The remainder of the common carotid and internal carotid arteries bilaterally are unremarkable withou t significant stenosis. The distal right vertebral artery is hypoplastic and terminates into the PICA. Left vertebral artery unremarkable IMPRESSION: Patent stent within the distal common carotid/proximal internal carotid arteries sunny correa NASCET criteria used. Mild 0-49% stenosis Moderate 50-69% stenosis Severe 70-99% stenosis
[2020-06-08] MEDS: lisinopriL 20 MG TAB PO SCH (09:49)
--- NOTE | 2020-06-08 12:41 | EKG ---
Test Date: 2020-06-07 Test Time: 16:40:04 Curriculum Counselor: EDGARDO MEASUREMENT RESULTS: Intervals: Rate: 60 MD: 146 QRSD: 132 QT: 454 QTc: 454 Preble: P: 28 MD: 146 QRS: -25 T: 78 INTERPRETIVE STATEMENTS: Normal sinus rhythm Right bundle branch block Abnormal ECG Compared to ECG 04/23/2020 09:19:27 Sinus bradycardia no longer present Electronically Signed On 06-08-20 12:39:36 WHIPPER BEATER by Rudy Chapa
[2020-06-08 13:22] VITALS: BP 144/75; TEMP 97.9
--- NOTE | 2020-06-08 13:46 | P.DS ---
Admission Date: 06/07/20 Discharge Date: 06/08/20 Primary Care Provider: Dr. Mi Disposition: ROUTINE DISCHARGE Discharge Condition: GOOD Reason for Admission: Facial weakness, CVA Consultations: Neurology - Dr. Chase Procedures: CT Brain (06/07): no acute intracranial abnormality. 2cm diminished density in R frontal lobe likely old ischemia CTA Head (06/07): No significant flow abnormality is detected. CTA Neck (06/07): Bilateral patent internal carotid artery stents are noted without significant flow alteration identified. CXR (06/07): No acute intrathoracic process suspected. MRI Brain (06/08): 4 centimeter area of abnormal signal is present within the right frontal lobe/insular region compatible with acute infarct. 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 Pt presented to the ED >9 hrs since symptom onset. He had mild improvement of his facial droop in the ED and was admitted for further kassie luation. Hospital Course: MRI Brain revealed an acute ischemic infarct and MRA revealed occlusion of a branch of the R MCA. The case was discussed with neurology and since patient was >24hrs from onset at time of MRI results, patient did not undergo any further testing / procedures. On day of discharge he was back to his baseline, had no residual facial droop, worked well with PT/OT and no new difficulty swallowing (He does have history of esophageal stricture). 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 The source of ischemic stroke is unclear, but patient did have a loop recorder recently implanted for possible arrhythmia. Vital Signs/Physical Exam: Temp Pulse Resp BP Pulse Ox 97.9 F 64 18 144/75 H 96 06/08/20 12:00 06/08/20 12:00 06/08/20 12:00 06/08/20 12:00 06/08/20 12:00 General: Alert, In no apparent distress, Oriented x3 HEENT: Sclerae nonicteric Neck: Supple Respiratory: Clear to auscultation bilaterally Cardiovascular: No edema, Regular rate/rhythm Gastrointestinal: Soft and benign, Non-distended, No tenderness Integumentary: No rashes Neurological: Normal speech, Normal strength at 5/5 x4 extr, Cranial nerves 3-12 intact, Normal affect Laboratory Data at Discharge: WBC 7.9 K/uL (4.3-10.9) 06/08/20 03:40 Hgb 12.1 g/dL (13.6-17.9) L 06/08/20 03:40 Hct 36.2 % (39.6-49.0) L 06/08/20 03:40 Plt Count 177 K/uL (152-406) 06/08/20 03:40 PT 11.8 SECONDS (9.5-12.5) 06/07/20 16:37 INR 1.00 06/07/20 16:37 APTT 28.4 SECONDS (24.3-36.9) 06/07/20 16:37 Sodium 142 mmol/L (136-145) 06/08/20 03:40 Potassium 4.3 mmol/L (3.5-5.1) 06/08/20 03:40 BUN 10 mg/dL (7-18) 06/08/20 03:40 Creatinine 1.10 mg/dL (0.55-1.3) 06/08/20 03:40 Glucose 113 mg/dL (74-106) H 06/08/20 03:40 Magnesium 1.7 mg/dL (1.8-2.4) L 06/08/20 03:40 Triglycerides 170 mg/dL (<150) H 06/08/20 03:40 Cholesterol 118 mg/dL (<200) 06/08/20 03:40 HDL Cholesterol 47 mg/dL (40-60) 06/08/20 03:40 Cholesterol/HDL Ratio 2.51 06/08/20 03:40 Home Medications: Atorvastatin Calcium [Lipitor] 1 tab PO DAILY 04/23/20 Citalopram Hydrobromide [Citalopram HBr] 10 mg PO DAILY 04/23/20 Clopidogrel Bisulfate [Plavix*] 1 tab PO DAILY 04/23/20 Levothyroxine [Synthroid*] 1 tab PO DAILY 04/23/20 Magnesium Oxide [Magnesium] 1 tab PO DAILY 04/23/20 Metformin HCl 1 tab PO BID 04/23/20 terbinafine HCL [Terbinafine HCl] 1 tab PO DAILY 04/23/20 Folic Acid 1 mg PO DAILY #30 tablet 04/24/20 Amlodipine [Norvasc*] 5 mg PO DAILY 06/07/20 Aspirin Chewable [Aspirin Chewable*] 81 mg PO DAILY 06/07/20 Dulaglutide [Trulicity] 1.5 mg SQ EVERY 7TH DAY 06/07/20 lisinopriL [Lisinopril] 40 mg PO BID 06/07/20 Patient Discharge Instructions: You were found to have an acute ischemic stroke in your right frontal lobe. Continue home medications as prescribed. Recommend keeping a blood pressure diary of daily blood pressure recordings. Follow up with your PCP within 1 week and your neurologist/batch freezer in [place]. Diet: ADA Activity: Ad roberto Followup: Matt Chase MD [ASSOCIATE-ACTIVE - CAN ADMIT] - Unknown,U [Primary Care Provider] - Time spent managing pt's care (in minutes): 40
== END 2020-06-08 15:50 | disposition home or self-care (01) | DRG 65 ==
LOC: ER 16:22 → ERHOLD 18:42 → 2ND 20:45
PROVIDERS: ADMIT Internal Medicine; ATTEND Hospitalist
DX: I63.9 Cerebral infarction, unspecified (principal); G81.91 Hemiplegia, unspecified affecting right dominant side; R29.810 Facial weakness; R29.701 NIHSS score 1; E03.9 Hypothyroidism, unspecified; I10 Essential (primary) hypertension; E78.5 Hyperlipidemia, unspecified; E11.51 Type 2 diabetes mellitus with diabetic peripheral angiopathy without gangrene; I25.10 Atherosclerotic heart disease of native coronary artery without angina pectoris; Z95.5 Presence of coronary angioplasty implant and graft; Z79.02 Long term (current) use of antithrombotics/antiplatelets; Z86.73 Personal history of transient ischemic attack (TIA), and cerebral infarction without residual deficits; Z79.890 Hormone replacement therapy; Z79.84 Long term (current) use of oral hypoglycemic drugs; Z87.891 Personal history of nicotine dependence; Z88.5 Allergy status to narcotic agent; Z79.899 Other long term (current) drug therapy; Z20.828 Contact with and (suspected) exposure to other viral communicable diseases
CPT/HCPCS: 36415; 70450; 70496; 70498; 70544; 70549; 70553; 71045; 80048; 80061; 82565; 82947; 83735; 84439; 84443; 85025; 85610; 85730; 93005; 96365; 96366; 97161; 99285; A9577; J1650; J3475; Q9967; U0003

== ENCOUNTER 2022-01-30 11:47 | Emergency (ER) | payer OTHER ==
--- OUTSIDE RECORDS SUMMARY | 2022-01-30 11:53 | XMS REPORT | Continuity of Care Document ---
:1940 Author Organization [facility] t Address [address] [place] [address] Care Team Providers Name Role Phone JACIEL BARNHART Primary Care Physician Unavailable Vianca Nash Attending Clinician Unavailable Antoni Mi Attending Clinician Unavailable MOHSEN HOLLOWAY Attending Clinician Unavailable GUMARO MAYNARD Attending Clinician Unavailable Janis BALDERRAMA, Davy Moe Attending Clinician Unavailable CIARA DELGADO Attending Clinician Unavailable Ciara Delgado MD Attending Clinician Dipti Ash MD Attending Clinician Shania De Leon MD Attending Clinician Only, Adc Test Attending Clinician Unavailable MICHAELA GALVAN Attending Clinician Unavailable MOHSEN HOLLOWAY Admitting Clinician Unavailable Shania De Leon MD Admitting Clinician DONNY GREEN Admitting Clinician Unavailable Payers Payer Name Policy Type Policy Number Effective Date Expiration Date S pricila AETNA MEDICARE [id number] 2017 HMO POS 00:00:00 [employer]ETNA MEDICARE [id number] 2020 OUT OF NETWORK 00:00:00 MEDICARE PLAN O [id number] - AETNA [facility] [id number] 2017 ADVANTAGE 00:00:00 HMO-POS-[facility] CHOICE [id number] PPO/MEDICARE PPO Problems Condition Condition Condition Status Onset Resolution Last Treating Co mments Source Name Details Category Date Date Treatment Clinician Date Bilateral Bilateral Disease Active Uni vers carotid carotid 07 ity of artery artery 00:00: [place] stenosis stenosis 00 Medica l Branch Orthostati Orthostati Disease Active U nivers c c 6-06 [place] Coronary Coronary Disease Active Unive rs artery artery 6- ity of disease disease 00:00: [place] involving involving 00 Med[place] coronary coronary artery of artery of [place] heart heart without without angina angina pectoris pectoris Chronic Chronic Disease Active Univers diastolic diastolic 6-06 it[place] of congestive [place]ive [place] heart heart 00 Medical failure failure Branch PAF PAF Disease Active Univers (paroxysma (paroxysma 11-21 it y of l atrial l atrial 00:00: [place] fibrillati fibrillati 00 Me dical on) on) Branch History of History of Disease Active U nivers transient transient 6-06 ity of ischemic ischemic 00:00: [place] attack attack 00 Medical (TIA) (TIA) Branch ALLIE ALLIE Disease Active Univers (obstructi (obstructi 6-06 it y of ve sleep ve sleep 00:00: [place] apnea) apnea) 00 Medical Branch PAD PAD Disease Active Univers (periphera (periphera 6-06 it y of l artery l artery 00:00: [place] disease) disease) 00 Medica l Branch Pre-syncop Pre-syncop Disease Active U nivers e e 6-16 ity of 00:00: [place] 00 Medical Branch Syncope Syncope Disease Active 2018- Univers 6-15 ity of 00:00: [place] 00 Medical Branch ALLIE ALLIE Disease Active 2016-06 [facility] (obstructi (obstructi 2-13 Co llege ve sleep ve sleep 00:00: of apnea) apnea) 00 Medicin e Hypothyroi Hypothyroi Disease Active 2016-06 Georgina turner dism dism 06-25 College 00:00: of 00 Medicin e On statin On statin Disease Active 2016-06 [place] [facility] therapy therapy 06-25 [place] 00:00: of 00 Medicin e Fatigue Fatigue Disease Active 2016-06 [facility] 06-25 [place] 00:00: of 00 Medicin e MOE MOE Disease Active 2016-06 [facility] (dyspnea (dyspnea 06-25 Colleg e on on 00:00: of exertion) exertion) 00 Medi elva e Dyslipidem Dyslipidem Disease [facility]01 [place] 00:00: of 00 Medicin e Snoring Snoring Disease Active [facility] 11-01 [place] 00:00: of 00 Medicin e Obesity Obesity Disease Active [facility] 11-01 [place] 00:00: of 00 Medicin e CAD CAD Disease Active [facility] (coronary (coronary 11-01 [place] artery artery 00:00: of disease) disease) 00 Medici n e Hypertensi Hypertensi Disease Active Georgina turner on on 11-01 [place] 00:00: of 00 Medicin e Allergies, Adverse Reactions, Alerts Allergy Allergy Status Severity Reaction(s) Onset Inactive Treating Comm ents Source Name Type Date Date Clinician Codeine Propensi Active Rash Univers ty to 02-17 ity of adverse 00:00: [place] reaction 00 Medical s Branch CODEINE DRUG Active Rash Univers INGREDI 02-17 ity of 00:00: [place] 00 Medical Branch CODEINE Allergy Active [facility] 02-24 00:00: 00 Codeine Propensi Active Rash "makes [facility] ty to 02-24 skin [place] adverse 00:00: crawl" of reaction 00 Medicin s to e drug Codeine Adverse Active hives Common Phosphat Reaction [facility] Social History Social Habit Start Date Stop Date Quantity Comments Source History [facility] ge of Alcohol Frequency Medicin e History [facility] ge of Alcohol Std Medicine Drinks History [facility] ge of Alcohol Binge Medicine Exposure to 2021-11-10 2021-11-20 Unable to assess Univers ity of SARS-CoV-2 00:00:00 12:27:00 [place] Medical (event) Branch Alcohol intake 2021-08-31 2021-08-31 Current drinker [facility] 00:00:00 00:00:00 of alcohol Medicine (finding) Tobacco use and 2017-04-25 2017-04-25 Former smokeless [facility] of exposure 00:00:00 00:00:00 tobacco user Medicine Cigarette 2017-04-25 2017-04-25 [facility] of pack-years 00:00:00 00:00:00 Medicine Alcohol Comment 2016-11-01 2016-11-01 2 [facility] Co llege of 00:00:00 00:00:00 Medicine Sex [birth year] [facility] llege of 00:00:00 00:00:00 Medicine Smoking Status Start Date Stop Date Source Never smoker [facility] Medical Branch Ex-smoker 2017-04-25 00:00:00 2017-04-25 00:00:00 [facility] jaylene of Medicine Medications Ordered Filled Start Stop Current Ordering Indication Dosage Frequency Signature Comments Components Source Medication Medication Date Date Medication? Clinician (SIG) Name Name levothyroxi Yes 125ug Take 125 U nivers ne 6-07 mcg by ity of (SYNTHROID) 12:55: mouth [place] 125 mcg 13 every Medical tablet morning. Branch metFORMIN Yes 1000mg Take 1,000 Univers (GLUCOPHAGE 6-07 mg by ity of ) 1,000 mg 12:55: mouth [place] tablet 13 daily with Medical breakfast. Branch citalopram Yes 20mg Take 20 mg U nivers (CELEXA) 40 6-07 by mouth ity of mg tablet 12:55: daily. [place] [address] Medical Branch omeprazole Yes 20mg Take 20 mg U nivers (PRILOSEC) 6-07 by mouth ity o f 20 mg 12:55: daily. [place] capsule Medical Branch clopidogrel Yes 75mg Take 75 mg Univers (PLAVIX) 75 6-07 by mouth ity of mg tablet 12:55: daily. [place] [address] Medical Branch ergocalcife Yes Take by Uni vers rol, 6-07 mouth. ity of vitamin D2, 12:55: [place] (VITAMIN D 13 Medical ORAL) Branch cyanocobala Yes Take by Uni vers min, 6-07 mouth. ity of vitamin 12:55: [place] 13 Medical (VITAMIN Branch B12 ORAL) apixaban Yes 5mg Take 5 mg Univ ers (ELIQUIS) 5 6-07 by mouth ity of mg tablet 12:55: daily. 13 Medical Branch metoprolol Yes [id number] 25mg Take 1 U nivers succinate 6-07 tablet by ity o f XL 25 mg 24 00:00: mouth [place] hr tablet 00 daily. Medical Branch atorvastati Yes [id number] 20mg Take 1 Univers n 20 mg 6-07 tablet by ity of tablet 00:00: mouth at [place] 00 bedtime. Medical Branch coenzyme Yes [id number] 100mg Take 1 Un doretha Q10 100 mg 6-07 capsule by ity of softgel 00:00: mouth [place] 00 daily. Medical Branch lisinopriL Yes [id number] 10mg Take 1 U nivers 10 mg 6-07 tablet by ity of tablet 00:00: mouth [place] 00 daily. Medical Branch magnesium Yes [id number] 500mg Take 500 Univers oxide 500 6-07 mg by ity of mg Tab 00:00: mouth [place] 00 daily. Medical Branch Levothyroxi 2021- No [id number] 125mg Take 125 [facility] ne Sodium 5-27 05-27 mg by [place] 125 MCG 09:43: 00:00 mouth of CAPS 22 :00 daily. Medicin e citalopram Yes [id number] 40mg Take 40 mg [facility] (CELEXA) 40 5-27 by mouth [place] MG tablet 09:42: daily. of 00 Medicin e Magnesium 0 Yes [id number] 40mg Take 40 mg [facility] Oxide 5-27 by mouth [place] (MAG-OXIDE 09:42: daily. of OR) 00 Medicin e metformin 0 Yes [id number] 1000mg Take 1,000 [facility] (GLUCOPHAGE 5-27 mg by [place] ) 1000 MG 09:42: mouth of tablet 00 daily. Medicin e Cyanocobala Yes [id number] 2000mg Take 2,000 [place] min (B-12) 5-27 mg by College 2000 MCG 09:42: mouth of TABS 00 daily. Medicin e Cholecalcif Yes [id number] 1000mg Take 1,000 [place] maddy 25 MCG 5-27 mg by College (1000 UT) 09:42: mouth of CAPS 00 daily. Medicin e Dulaglutide Yes Inject [place] [facility] (TRULICITY) 5-27 into the [place]y ege 1.5 09:42: skin. of MG/0.5ML 00 Medicin SOPN e nitroglycer Yes .4mg Place 0.4 [place] in 5-27 mg under College (NITROSTAT) 09:42: the tongue of 0.4 mg [address] one e tablet tablet under tongue for chest pain. Repeat every 5 minutes for a total of three pills in 15 minutes PRN persistent chest pain. clopidogrel Yes 75mg Take 1 [facility] (PLAVIX) 75 5-27 Tablet by [facility] lege MG Tablet 00:00: mouth of 00 daily. Medicin e cephALEXin Yes [place] (KEFLEX) 5-19 College 500 MG 00:00: of capsule 00 Medicin e levothyroxi Yes TAKE 1 [facility] ne 5-14 TABLET BY [place] (SYNTHROID) 00:00: MOUTH of 125 MCG 00 EVERY DAY Medicin tablet ONCE A DAY e ORAL 90 DAYS citalopram Yes [id number] 40mg Take 40 mg [place] (CELEXA) 40 3-16 by mouth Addy ege MG tablet 08:39: daily. of 31 Medicin e Levothyroxi Yes [id number] 125mg Take 125 [facility] ne Sodium 3-16 mg by [place] 125 MCG 08:39: mouth of CAPS 31 daily. Medicin e Magnesium 0 Yes [id number] 40mg Take 40 mg [facility] Oxide 3-16 by mouth [place] (MAG-OXIDE 08:39: daily. of OR) 31 Medicin e metformin 0 Yes [id number] 1000mg Take 1,000 [place] (GLUCOPHAGE 3-16 mg by College ) 1000 MG 08:39: mouth of tablet 31 daily. Medicin e Cyanocobala Yes [id number] 2000mg Take 2,000 [place] min (B-12) 3-16 mg by [place] 2000 MCG 08:39: mouth of TABS 31 daily. Medicin e Cholecalcif 2021-0 Yes [id number] 1000mg Take 1,000 [place] maddy 25 MCG 3-16 mg by [place] (1000 UT) 08:39: mouth of CAPS 31 daily. Medicin e Dulaglutide 2021-0 Yes Inject [place] [facility] (TRULICITY) 3-16 into the Addy ege 1.5 08:39: skin. of MG/0.5ML 31 Medicin SOPN e nitroglycer 2021-[address] 0.4 [place] in 3-16 mg under [facility] (NITROSTAT) 08:39: the tongue of 0.4 mg [address] one e tablet tablet under tongue for chest pain. Repeat every 5 minutes for a total of three pills in 15 minutes PRN persistent chest pain. amlodipine 2021-0 Yes [id number] Daily [facility] (NORVASC) 5 3-16 College MG tablet 00:00: of 00 Medicin e Apixaban 2021-0 Yes 5mg Take 5 mg [place] [facility] (ELIQUIS) 5 3-16 by mouth [place] MG TABS 00:00: two times of 00 daily. Medicin e atorvastati 2021-0 Yes [id number] 80mg Take 1 [facility] n (LIPITOR) 3-16 Tablet by Col lege 80 MG 00:00: mouth of tablet 00 daily. Medicin e furosemide 2021-0 Yes [id number] 20mg Take 1 [facility] [place] (LASIX) 20 3-16 Tablet by Addy [place]ge MG tablet 00:00: mouth of 00 daily. Medicin e amlodipine 2-0 Yes [id number] Daily [facility] (NORVASC) 5 3-16 College MG tablet 00:00: of 00 Medicin e Apixaban 2-0 Yes 5mg Take 5 mg [place] (ELIQUIS) 5 3-16 by mouth D[place] ege MG TABS 00:00: two times of 00 daily. Medicin e atorvastati 2-0 Yes [id number] 80mg Take 1 [facility] n (LIPITOR) 3-16 Tablet by Col lege 80 MG 00:00: mouth of tablet 00 daily. Medicin e furosemide 2022-0 Yes [id number] 20mg Take 1 [facility] [place] (LASIX) 20 3-16 Tablet by Addy ege MG tablet 00:00: mouth of 00 daily. Medicin e lisinopril Yes [id number] TAKE 1 [facility] (PRINIVIL, 3-12 TABLET BY Addy ege ZESTRIL) 40 00:00: MOUTH of MG tablet 00 EVERY DAY Medic in e lisinopril Yes [id number] TAKE 1 [facility] (PRINIVIL, 3-12 TABLET BY Addy eggladys ZESTRIL) 40 00:00: MOUTH of MG tablet 00 EVERY DAY Medic in e amlodipine 2021- No [id number] TAKE 1 [facility] (NORVASC) 5 2-18 03-16 TABLET BY Co llege MG tablet 00:00: 00:00 MOUTH of 00 :00 EVERY DAY Medicin e lisinopril 2020- No [id number] 40mg Take 40 mg [facility] (PRINIVIL, 01-12-28 by mouth [place] ZESTRIL) 40 09:55: 00:00 daily. of MG tablet 49 :00 Medicin e clopidogrel 2020- No 75mg Take 75 mg [facility] (PLAVIX) 75 01-12- by mouth Col lege MG Tablet 09:55: 00:00 daily. of 49 :00 Medicin e Aspirin 2020- No [id number] 81mg Take 81 mg [facility] (ASPIR-81) 01-12- by mouth [place] 81 MG TBEC 09:54: 00:00 daily. of 07 :00 Medicin e citalopram Yes [id number] 40mg Take 40 mg [facility] (CELEXA) 40 -28 by mouth Addy ege MG tablet 09:29: daily. of 53 Medicin e Levothyroxi Yes [id number] 125mg Take 125 [place] ne Sodium 7-28 mg by [place] 125 MCG 09:29: mouth of CAPS 53 daily. Medicin e Magnesium Yes [id number] 40mg Take 40 mg [facility] Oxide 7-28 by mouth [place] (MAG-OXIDE 09:29: daily. of OR) 53 Medicin e metformin 2021-0 Yes [id number] 1000mg Take 1,000 [place] (GLUCOPHAGE 7-28 mg by College ) 1000 MG 09:29: mouth of tablet 53 daily. Medicin e Cyanocobala 0 Yes [id number] 2000mg Take 2,000 [facility] min (B-12) 7-28 mg by College 2000 MCG 09:29: mouth of TABS 53 daily. Medicin e Cholecalcif 0 Yes [id number] 1000mg Take 1,000 [place] maddy 7-28 mg by College (D3-1000) 09:29: mouth of 1000 UNITS 53 daily. Medicin CAPS e Dulaglutide Yes Inject [place] [facility] (TRULICITY) 7-28 into the Addy ege 1.5 09:29: skin. of MG/0.5ML 53 Medicin SOPN e nitroglycer Yes .4mg Place 0.4 [place] in 7-28 mg under [facility] (NITROSTAT) 09:29: the tongue of 0.4 mg [address] one e tablet tablet under tongue for chest pain. Repeat every 5 minutes for a total of three pills in 15 minutes PRN persistent chest pain. amlodipine Yes [id number] TAKE 1 [facility] [place] (NORVASC) 5 7-28 TABLET BY Col lege MG tablet 00:00: MOUTH of 00 EVERY DAY Medicin e Apixaban Yes 5mg Take 5 mg [place] [facility] (ELIQUIS) 5 7-28 by mouth [place]y ege MG TABS 00:00: two times of 00 daily. Medicin e atorvastati Yes [id number] 80mg Take 1 [place] n (LIPITOR) 7-28 Tablet by Col lege 80 MG 00:00: mouth of tablet 00 daily. Medicin e clopidogrel 0 Yes 75mg Take 1 [facility] [facility] (PLAVIX) 75 7-28 Tablet by Col lege MG Tablet 00:00: mouth of 00 daily. Medicin e furosemide 0 Yes [id number] 20mg Take 1 [place] (LASIX) 20 7-28 Tablet by Addy ege MG tablet 00:00: mouth of 00 daily. Medicin e lisinopril 0 Yes [id number] 40mg Take 1 [place] (PRINIVIL, 7-28 Tablet by Addy ege ZESTRIL) 40 00:00: mouth of MG tablet 00 daily. Medicin e clopidogrel Yes 75mg Take 1 [facility] [facility] (PLAVIX) 75 -28 Tablet by Col lege MG Tablet 00:00: mouth of 00 daily. Medicin e clopidogrel 2021- No 75mg Take 1 [place] [facility] (PLAVIX) 75 01-12 05-27 Tablet by Co llege MG Tablet 00:00: 00:00 mouth of 00 :00 daily. Medicin e Apixaban 2021- No 5mg Take 5 mg [place] [facility] (ELIQUIS) 5 -12 09-16 by mouth Col lege MG TABS 00:00: 00:00 two times of 00 :00 daily. Medicin e atorvastati 2021- No [id number] 80mg Take 1 [place] n (LIPITOR) 01-12-16 Tablet by Co llege 80 MG 00:00: 00:00 mouth of tablet 00 :00 daily. Medicin e furosemide 2021- No [id number] 20mg Take 1 [place] (LASIX) 20 01-12-16 Tablet by Col lege MG tablet 00:00: 00:00 mouth of 00 :00 daily. Medicin e Apixaban 2020- No 5mg Take 5 mg [place] [facility] (ELIQUIS) 5 3-15 - by mouth Col lege MG TABS 00:00: 00:00 two times of 00 :00 daily. Medicin e Aspirin Yes [id number] 81mg Take 81 mg [facility] (ASPIR-81) 1-27 by mouth Colle ge 81 MG TBEC 15:29: daily. of 54 Medicin e citalopram Yes [id number] 40mg Take 40 mg [facility] (CELEXA) 40 -27 by mouth Addy ege MG tablet 15:29: daily. of 30 Medicin e Levothyroxi Yes [id number] 125mg Take 125 [facility] ne Sodium 1-27 mg by [place] 125 MCG 15:29: mouth of CAPS 30 daily. Medicin e lisinopril Yes [id number] 40mg Take 40 mg [facility] (PRINIVIL, -27 by mouth [place] ZESTRIL) 40 15:29: daily. of MG tablet 30 Medicin e Magnesium Yes [id number] 40mg Take 40 mg [facility] Oxide -27 by mouth [place] (MAG-OXIDE 15:29: daily. of OR) 30 Medicin e metformin Yes [id number] 1000mg Take 1,000 [facility] (GLUCOPHAGE 1-27 mg by [place] ) 1000 MG 15:29: mouth of tablet 30 daily. Medicin e Cyanocobala Yes [id number] 2000mg Take 2,000 [place] min (B-12) 1-27 mg by [place] 2000 MCG 15:29: mouth of TABS 30 daily. Medicin e Cholecalcif Yes [id number] 1000mg Take 1,000 [facility] maddy 1-27 mg by [place] (D3-1000) 15:29: mouth of 1000 UNITS 30 daily. Medicin CAPS e clopidogrel Yes 75mg Take 75 mg [facility] (PLAVIX) 75 07-14 by mouth [place] e[place] MG Tablet 15:29: daily. of 30 Medicin e Dulaglutide Yes Inject [facility] [facility] (TRULICITY) 07-14 into the Addy ege 1.5 15:29: skin. of MG/0.5ML 30 Medicin SOPN e nitroglycer Yes .4mg Place 0.4 [place] in 1-27 mg under [facility] (NITROSTAT) 15:29: the tongue of 0.4 mg [address] one e tablet tablet under tongue for chest pain. Repeat every 5 minutes for a total of three pills in 15 minutes PRN persistent chest pain. atorvastati Yes [id number] 80mg Take 1 [place] n (LIPITOR) 07-14 Tablet by Col lege 80 MG 00:00: mouth of tablet 00 daily. Medicin e atorvastati 2020- No [id number] 80mg Take 1 [facility] n (LIPITOR) 07-14 07-28 Tablet by Co llege 80 MG 00:00: 00:00 mouth of tablet 00 :00 daily. Medicin e amlodipine Yes [id number] TAKE 1 [facility] (NORVASC) 5 1-13 TABLET BY Col lege MG tablet 00:00: MOUTH of 00 EVERY DAY Medicin e amlodipine 2020-0 2020- No [id number] TAKE 1 [facility] (NORVASC) 5 1-13 07-28 TABLET BY Co llege MG tablet 00:00: 00:00 MOUTH of 00 :00 EVERY DAY Medicin e clopidogrel 2019-06 Yes 75mg Take 75 mg [facility] (PLAVIX) 75 2-08 by mouth Addy ege MG Tablet 14:55: daily. of 22 Medicin e Dulaglutide 2019-06 Yes Inject [facility] (TRULICITY) 2-08 into the Addy ege 1.5 14:55: skin. of MG/0.5ML 22 Medicin SOPN e nitroglycer 2019-[address] 0.4 [place] in 2-08 mg under [facility] (NITROSTAT) 14:55: the tongue of 0.4 mg [address] one e tablet tablet under tongue for chest pain. Repeat every 5 minutes for a total of three pills in 15 minutes PRN persistent chest pain. citalopram 2019-06 Yes [id number] 40mg Take 40 mg [facility] (CELEXA) 40 2-08 by mouth Addy ege MG tablet 14:51: daily. of 56 Medicin e Levothyroxi 2019-06 Yes [id number] 125mg Take 125 [place] ne Sodium 2-08 mg by [place] 125 MCG 14:51: mouth of CAPS 56 daily. Medicin e lisinopril 2019-06 Yes [id number] 40mg Take 40 mg [place] (PRINIVIL, 2-08 by mouth Colle ge ZESTRIL) 40 14:51: daily. of MG tablet 56 Medicin e Magnesium 2019-06 Yes [id number] 40mg Take 40 mg [place] Oxide 2-08 by mouth [place] (MAG-OXIDE 14:51: daily. of OR) 56 Medicin e metformin 2019-06 Yes [id number] 1000mg Take 1,000 [facility] (GLUCOPHAGE 2-08 mg by [place] ) 1000 MG 14:51: mouth of tablet 56 daily. Medicin e Aspirin 2019-06 Yes [id number] 81mg Take 81 mg [place] (ASPIR-81) 2-08 by mouth Colle ge 81 MG TBEC 14:51: daily. of 56 Medicin e Cyanocobala 2019-06 Yes [id number] 2000mg Take 2,000 [facility] min (B-12) 2-08 mg by [place] 2000 MCG 14:51: mouth of TABS 56 daily. Medicin e Cholecalcif 2019- Yes [id number] 1000mg Take 1,000 [place] maddy 2-08 mg by [place] (D3-1000) 14:51: mouth of 1000 UNITS 56 daily. Medicin CAPS e amlodipine 2019-06 Yes [id number] TAKE 1 [facility] (NORVASC) 5 -17 TABLET BY Col lege MG tablet 00:00: MOUTH of 00 EVERY DAY Medicin e Terbinafine Terbinafine 2019-0 2020- No [facility] 1 tablet Common HCl HCl 03-04 Mi [facility] 00:00: 00:00 - [facility] 00 :00 [facility] Dulaglutide Dulaglutide 2019-0 2020- No [facility] as Common 03-04 Mi directed Spirit 00:00: 00:00 - [facility]I 00 :00 [facility] citalopram 2019-0 Yes [id number] 40mg Take 40 mg [place] (CELEXA) 40 6-26 by mouth Addy ege MG tablet 13:07: daily. of 43 Medicin e Levothyroxi 2020-0 Yes [id number] 125mg Take 125 [facility] ne Sodium 6-26 mg by [place] 125 MCG 13:07: mouth of CAPS 43 daily. Medicin e lisinopril 2020-0 Yes [id number] 40mg Take 40 mg [facility] (PRINIVIL, 6-26 by mouth Colle ge ZESTRIL) 40 13:07: daily. of MG tablet 43 Medicin e Magnesium 2020-0 Yes [id number] 40mg Take 40 mg [place] Oxide 6-26 by mouth [place] (MAG-OXIDE 13:07: daily. of OR) 43 Medicin e metformin 2020-0 Yes [id number] 1000mg Take 1,000 [facility] (GLUCOPHAGE 6-26 mg by [place] ) 1000 MG 13:07: mouth of tablet 43 daily. Medicin e Aspirin 2020-0 Yes [id number] 81mg Take 81 mg [place] (ASPIR-81) 6-26 by mouth Colle ge 81 MG TBEC 13:07: daily. of 43 Medicin e Cyanocobala 2020-0 Yes [id number] 2000mg Take 2,000 [facility] min (B-12) 6-26 mg by [place] 2000 MCG 13:07: mouth of TABS 43 daily. Medicin e Cholecalcif 2020-0 Yes [id number] 1000mg Take 1,000 [facility] maddy 6-26 mg by College (D3-1000) 13:07: mouth of 1000 UNITS 43 daily. Medicin CAPS e citalopram 2020-0 Yes [id number] 40mg Take 40 mg [facility] (CELEXA) 40 6-26 by mouth Addy ege MG tablet 13:07: daily. of 43 Medicin e Levothyroxi 2020-0 Yes [id number] 125mg Take 125 [place] ne Sodium 6-26 mg by [place] 125 MCG 13:07: mouth of CAPS 43 daily. Medicin e lisinopril 2020-0 Yes [id number] 40mg Take 40 mg [facility] (PRINIVIL, 6-26 by mouth Colle ge ZESTRIL) 40 13:07: daily. of MG tablet 43 Medicin e Magnesium 2020-0 Yes [id number] 40mg Take 40 mg [facility] Oxide 6-26 by mouth [place] (MAG-OXIDE 13:07: daily. of OR) 43 Medicin e metformin 2020-0 Yes [id number] 1000mg Take 1,000 [facility] (GLUCOPHAGE 6-26 mg by [place] ) 1000 MG 13:07: mouth of tablet 43 daily. Medicin e Aspirin 2020-0 Yes [id number] 81mg Take 81 mg [facility] (ASPIR-81) 6-26 by mouth Colle ge 81 MG TBEC 13:07: daily. of 43 Medicin e Cyanocobala 2020-0 Yes [id number] 2000mg Take 2,000 [facility] min (B-12) 6-26 mg by [place] 2000 MCG 13:07: mouth of TABS 43 daily. Medicin e Cholecalcif 2020-0 Yes [id number] 1000mg Take 1,000 [facility] maddy 6-26 mg by [place] (D3-1000) 13:07: mouth of 1000 UNITS 43 daily. Medicin CAPS e amlodipine 2020-0 Yes [id number] 5mg Take 1 Tab [place] (NORVASC) 5 6-26 by mouth Addy ege MG tablet 00:00: daily. of 00 Medicin e amlodipine 2020-0 Yes [id number] 5mg Take 1 Tab [facility] (NORVASC) 5 6-26 by mouth Addy ege MG tablet 00:00: daily. of 00 Medicin e metoprolol 2020-0 Yes [id number] TAKE 1 [facility] (TOPROL-XL) 6-04 TABLET BY Col lege 25 MG XL 00:00: MOUTH of tablet 00 EVERY DAY Medicin e metoprolol 2020-0 Yes [id number] TAKE 1 [facility] (TOPROL-XL) 6-04 TABLET BY Col lege 25 MG XL 00:00: MOUTH of tablet 00 EVERY DAY Medicin e metoprolol 2020-0 Yes [id number] TAKE 1 [place] (TOPROL-XL) 6-04 TABLET BY Col lege 25 MG XL 00:00: MOUTH of tablet 00 EVERY DAY Medicin e TRESIBA 100 2020-0 Yes [place] UNIT/ML 5-11 [facility] 00:00: of 00 Medicin e TRESIBA 100 2020-0 Yes [facility] UNIT/ML 5-11 [facility] 00:00: of 00 Medicin e TRESIBA 100 2020-0 Yes [place] UNIT/ML 5-11 [facility] 00:00: of 00 Medicin e TRESIBA 100 2020-0 Yes [place] UNIT/ML 5-11 [facility] 00:00: of 00 Medicin e TRESIBA 100 2020-0 Yes [place] UNIT/ML 5-11 [facility] 00:00: of 00 Medicin e TRESIBA 100 2020-0 Yes [facility] UNIT/ML 5-11 [facility] 00:00: of 00 Medicin e TRESIBA 100 2020-0 2022- No [facility] [facility] UNIT/ML - 05-27 [facility] 00:00: 00:00 of 00 :00 Medicin e metoprolol 2018-06 2019- No [id number] 100mg Take 100 [place] (TOPROL-XL) 1-08 11-08 mg by [facility] [facility] MG XL 16:38: 00:00 mouth of tablet 03 :00 daily. Medicin e citalopram 2018-06 Yes [id number] 40mg Take 40 mg [facility] (CELEXA) 40 1-08 by mouth [place] MG tablet 16:08: daily. of 18 Medicin e Levothyroxi 2018-06 Yes [id number] 125mg Take 125 [place] Sodium 1-08 mg by [place] 125 MCG 16:08: mouth of CAPS 18 daily. Medicin e lisinopril 2018-06 Yes [id number] 40mg Take 40 mg [facility] (PRINIVIL, 1-08 by mouth [facility] ZESTRIL) 40 16:08: daily. of MG tablet 18 Medicin e Magnesium 2018-06 Yes [id number] 40mg Take 40 mg [facility] Oxide 1-08 by mouth [place] (MAG-OXIDE 16:08: daily. of OR) 18 Medicin e metformin 2018-06 Yes [id number] 1000mg Take 1,000 [place] (GLUCOPHAGE 1-08 mg by [place] ) 1000 MG 16:08: mouth of tablet 18 daily. Medicin e Aspirin 2018-06 Yes [id number] 81mg Take 81 mg [place] (ASPIR-81) 1-08 by mouth [facility] 81 MG TBEC 16:08: daily. of 18 Medicin e Cyanocobala 2018-06 Yes [id number] 2000mg Take 2,000 [place] min (B-12) 1-08 mg by [place] 2000 MCG 16:08: mouth of TABS 18 daily. Medicin e Cholecalcif 2018-06 Yes [id number] 1000mg Take 1,000 [facility] maddy 1-08 mg by [place] (D3-1000) 16:08: mouth of 1000 UNITS 18 daily. Medicin CAPS e metoprolol 2018-06 Yes [id number] 25mg Take 1 Tab [place] (TOPROL-XL) 1-08 by mouth [place] [facility] 25 MG XL 00:00: daily. of tablet 00 Medicin e citalopram Yes [id number] 40mg Take 40 mg [facility] (CELEXA) 40 8-14 by mouth [place] [facility] MG tablet 16:22: daily. of 17 Medicin e Levothyroxi Yes [id number] 125mg Take 125 [facility] ne Sodium 8-14 mg by [place] 125 MCG 16:22: mouth of CAPS 17 daily. Medicin e lisinopril Yes [id number] 40mg Take 40 mg [facility] (PRINIVIL, 8-14 by mouth [facility] ZESTRIL) 40 16:22: daily. of MG tablet 17 Medicin e Magnesium Yes [id number] 40mg Take 40 mg [place] Oxide 8-14 by mouth [place] (MAG-OXIDE 16:22: daily. of OR) 17 Medicin e metformin Yes [id number] 1000mg Take 1,000 [facility] (GLUCOPHAGE 8-14 mg by [facility] ) 1000 MG 16:22: mouth of tablet 17 daily. Medicin e metoprolol Yes [id number] 100mg Take 100 [facility] (TOPROL-XL) 8-14 mg by [facility] 100 MG XL 16:22: mouth of tablet 17 daily. Medicin e Aspirin Yes [id number] 81mg Take 81 mg [facility] (ASPIR-81) 8-14 by mouth [place] 81 MG TBEC 16:22: daily. of 17 Medicin e Cyanocobala Yes [id number] 2000mg Take 2,000 [place] min (B-12) 8-14 mg by [employer] 2000 MCG 16:22: mouth of TABS 17 daily. Medicin e Cholecalcif Yes [id number] 1000mg Take 1,000 [facility] maddy 8-14 mg by [place] (D3-1000) 16:22: mouth of 1000 UNITS 17 daily. Medicin CAPS e atorvastati Yes [id number] TAKE 1 TAB [place] n (LIPITOR) 5-16 BY MOUTH [place] 80 MG 00:00: DAILY. of tablet 00 Medicin e atorvastati Yes [id number] TAKE 1 TAB [place] n (LIPITOR) 5-16 BY MOUTH [place] 80 MG 00:00: DAILY. of tablet 00 Medicin e atorvastati Yes [id number] TAKE 1 TAB [place] n (LIPITOR) 5-16 BY MOUTH [place] [facility] 80 MG 00:00: DAILY. of tablet 00 Medicin e atorvastati Yes [id number] TAKE 1 TAB [facility] n (LIPITOR) 5-16 BY MOUTH [place] 80 MG 00:00: DAILY. of tablet 00 Medicin e atorvastati Yes [id number] TAKE 1 TAB [place] n (LIPITOR) 5-16 BY MOUTH [place] 80 MG 00:00: DAILY. of tablet 00 Medicin e atorvastati 2020- No [id number] TAKE 1 TAB [place] n (LIPITOR) 5-16 -27 BY MOUTH [facility] 80 MG 00:00: 00:00 DAILY. of tablet 00 :00 Medicin e clopidogrel 2017-06- No 75mg Take 75 mg [facility] (PLAVIX) 75 0-22 -23 by mouth. [facility] MG tablet 00:00: 04:59 of 00 :00 Medicin e glimepiride 2018-0 Yes TAKE 1 [facility] (AMARYL) 2 2-01 TABLET BY [place] MG tablet 00:00: MOUTH ONCE of 00 DAILY Medicin e glimepiride 2018 Yes TAKE 1 [facility] (AMARYL) 2 2-01 TABLET BY [place] MG tablet 00:00: MOUTH ONCE of 00 DAILY Medicin e glimepiride 2018 Yes TAKE 1 [facility] (AMARYL) 2 2-01 TABLET BY [place] MG tablet 00:00: MOUTH ONCE of 00 DAILY Medicin e glimepiride 2018 Yes TAKE 1 [facility] (AMARYL) 2 2-01 TABLET BY [place] MG tablet 00:00: MOUTH ONCE of 00 DAILY Medicin e glimepiride 2018 Yes TAKE 1 [facility] (AMARYL) 2 2-01 TABLET BY [place] MG tablet 00:00: MOUTH ONCE of 00 DAILY Medicin e glimepiride 2018 Yes TAKE 1 [facility] (AMARYL) 2 2-01 TABLET BY [place] MG tablet 00:00: MOUTH ONCE of 00 DAILY Medicin e glimepiride [id number] Yes TAKE 1 [facility] (AMARYL) 2 2-01 TABLET BY [place] MG tablet 00:00: MOUTH ONCE of 00 DAILY Medicin e glimepiride 20180 Yes TAKE 1 [facility] (AMARYL) 2 2-01 TABLET BY [place] MG tablet 00:00: MOUTH ONCE of 00 DAILY Medicin e glimepiride 20180 Yes TAKE 1 [facility] (AMARYL) 2 2-01 TABLET BY [place] MG tablet 00:00: MOUTH ONCE of 00 DAILY Medicin e furosemide 2016-06 Yes [id number] 20mg Take 1 Tab [facility] (LASIX) 20 2-13 by mouth [place] MG tablet 00:00: daily. of 00 Medicin e furosemide 2016-06 Yes [id number] 20mg Take 1 Tab [facility] (LASIX) 20 2-13 by mouth [facility] MG tablet 00:00: daily. of Medicin e furosemide 2016-06 Yes [id number] 20mg Take 1 Tab [place] (LASIX) 20 2-13 by mouth [facility] MG tablet 00:00: daily. of 00 Medicin e furosemide 2016-06 Yes [id number] 20mg Take 1 Tab [facility] (LASIX) 20 2-13 by mouth [facility]le [facility] MG tablet 00:00: daily. of 00 Medicin e furosemide 2016-06 Yes [id number] 20mg Take 1 Tab [place] (LASIX) 20 2-13 by mouth [facility] MG tablet 00:00: daily. of Medicin e furosemide 2016-06 Yes [id number] 20mg Take 1 Tab [facility] (LASIX) 20 2-13 by mouth [place] [place] MG tablet 00:00: daily. of Medicin e furosemide 2016-06 No [id number] 20mg Take 1 Tab [place] (LASIX) 20 2-13 - by mouth [place] [facility] MG tablet 00:00: 00:00 daily. of 00 :00 Medicin e Furosemide Furosemide Yes Antoni Zuniga TAKE 1 Common Mi TABLET BY Spirit MOUTH - CHI EVERY DAY [facility] Levothyroxi Levothyroxi Yes Antoni Zuniga TAKE 1 Common ne Sodium ne Sodium Mi TABLET BY Spirit MOUTH - CHI EVERY DAY [facility] Lisinopril Lisinopril Yes Antoni Zuniga TAKE 1 Common Mi TABLET BY Spirit MOUTH - CHI TWICE A [facility] Citalopram Citalopram Yes Antoni Zuniga TAKE 1 Common Hydrobromid Hydrobromid Mi TABLET BY Spirit e e MOUTH - CHI EVERY DAY [facility] THE [facility] BD Pen BD Pen Yes Antoni Zuniga USE PEN Common Needle Yumiko Needle Yumiko Mi NEEDLES Spirit U/F U/F DIRECTED - [facility]I WITH [facility] Amlodipine Amlodipine Yes Antoni Zuniga TAKE 1 Common Besylate Besylate Mi TABLET BY Sp bakari MOUTH - CHI EVERY DAY [facility] Magnesium Magnesium Yes Antoni Zuniga 1 capsule Common Mi Spirit - CHI [facility] Metformin Metformin Yes Antoni Zuniga TAKE 1 C ommon HCl HCl Mi TABLET BY Spirit MOUTH - CHI TWICE A [facility] Clopidogrel Clopidogrel Yes Antoni Zuniga TAKE 1 Common Bisulfate Bisulfate Mi TABLET BY Spirit MOUTH - CHI EVERY DAY [facility] Tresiba Tresiba Yes Antoni Zuniga 15 UNITS Com mon Mi INJECT Spirit BELOW THE - CHI SKIN St NIGHTLY [facility] Atorvastati Atorvastati Yes Kin Zuniga TAKE 1 Common n Calcium n Calcium Mi TABLET BY Spirit MOUTH - CHI EVERY DAY IN [facility] Immunizations Ordered Immunization Filled Immunization Date Status Commen ts Source Name Name FLUZONE HIGH DOSE FLUZONE HIGH DOSE 2020-03-04 Completed [facility] - OVER 65 OVER 65 00:00:00 [facility] Influenza Hd 2020-03-04 Completed [place] [facility] 00:00:00 of Medicine Influenza Hd 2020-03-04 Completed [facility] Colle ge 00:00:00 of Medicine Influenza Hd 2020-03-04 Completed [place] Colle ge 00:00:00 of Medicine Influenza Hd 2020-03-04 Completed [facility] Colle ge 00:00:00 of Medicine Influenza 2020-03-04 Completed [place] Colle ge 00:00:00 of Medicine Vital Signs Vital Name Observation Time Observation Value Comments Source HEIGHT 2020-04-24 15:00:00 182.9 cm WEIGHT 2020-04-24 15:00:00 102.059 kg Systolic blood 2021-11-11 14:43:00 134 mm[Hg] [facility] pressure Medicine Diastolic blood 2021-11-11 14:43:00 78 mm[Hg] [facility] Medicine Heart rate 2021-11-11 14:43:00 66 /min [facility] Respiratory rate 2021-11-11 14:43:00 16 /min [facility] Body height 2021-11-11 14:43:00 188 cm [facility] Body weight 2021-11-11 14:43:00 101.152 kg [facility] BMI 2021-11-11 14:43:00 28.63 kg/m2 [facility] Oxygen saturation in 2021-11-11 14:43:00 100 /min [facility] Arterial blood by [facility] Pulse oximetry Systolic blood 2021-08-31 13:37:00 134 mm[Hg] [facility] pressure Medicine Diastolic blood 2021-08-31 13:37:00 81 mm[Hg] [facility] Medicine Heart rate 2021-08-31 13:37:00 72 /min [facility] Respiratory rate 2021-08-31 13:37:00 16 /min [facility] Body height 2021-08-31 13:37:00 188 cm [facility] ollege of [facility] Body weight 2021-08-31 13:37:00 101.152 kg [facility] ollege of Medicine BMI 2021-08-31 13:37:00 28.63 kg/m2 [facility] ollege of [facility] Oxygen saturation in 2021-08-31 13:37:00 100 /min [facility] of Arterial blood by Medicine Pulse oximetry Systolic blood 2021-01-12 14:26:00 145 mm[Hg] [facility] of pressure Medicine Diastolic blood 2021-01-12 14:26:00 77 mm[Hg] [facility] Medicine Heart rate 2021-01-12 14:26:00 53 /min [facility] ollege of Medicine Respiratory rate 2021-01-12 14:26:00 16 /min [facility] Body height 2021-01-12 14:26:00 188 cm [facility] ollege of [facility] Body weight 2021-01-12 14:26:00 99.338 kg [facility] ollege of Medicine BMI 2021-01-12 14:26:00 28[facility]12 [facility] Oxygen saturation in 2021-01-12 14:26:00 99 /min [facility] of Arterial blood by Medicine Pulse oximetry Systolic blood 2020-07-14 15:27:00 114 mm[Hg] [facility] pressure Medicine Diastolic blood 2020-07-14 15:27:00 69 mm[Hg] [facility] Medicine Heart rate 2020-07-14 15:27:00 68 /min [facility] ollege of Medicine Respiratory rate 2020-07-14 15:27:00 20 /min [facility] Body height 2020-07-14 15:27:00 188 cm [facility] ollege of Medicine Body weight 2020-07-14 15:27:00 105.688 kg [facility] ollege of Medicine BMI 2020-07-14 15:27:00 29.92 kg/m2 [facility] ollege of Medicine Oxygen saturation in 2020-07-14 15:27:00 99 /min [facility] of Arterial blood by Medicine Pulse oximetry Systolic blood 2020-05-25 14:52:00 160 mm[Hg] [facility] pressure Medicine Diastolic blood 2020-05-25 14:52:00 85 mm[Hg] [facility] Medicine Heart rate 2020-05-25 14:52:00 64 /min [facility] C ollege of Medicine Body height 2020-05-25 14:52:00 188 cm [facility] C ollege of Medicine Body weight 2020-05-25 14:52:00 104.327 kg [facility] C ollege of Medicine BMI 2020-05-25 14:52:00 29.53 kg/m2 [facility] C ollege of Medicine Systolic blood 2020-05-25 14:52:00 160 mm[Hg] [facility] of [facility] Medicine Diastolic blood 2020-05-25 14:52:00 85 mm[Hg] [facility] Medicine Heart rate 2020-05-25 14:52:00 64 /min [facility] ol[facility] of Medicine Body height 2020-05-25 14:52:00 188 cm [facility] ol[facility] of Medicine Body weight 2020-05-25 14:52:00 104.327 kg [facility] ol[facility] of Medicine BMI 2020-05-25 14:52:00 29.53 kg/m2 [facility] ol[facility] of Medicine HEIGHT 2020-04-24 15:00:00 182.9 cm WEIGHT 2020-04-24 15:00:00 102.059 kg Systolic blood 2019-12-12 13:05:00 130 mm[Hg] [facility] Medicine Diastolic blood 2019-12-12 13:05:00 68 mm[Hg] [facility] Medicine Heart rate 2019-12-12 13:05:00 46 /min [facility] ol[facility] of Medicine Body temperature 2019-12-12 13:05:00 36.33 Milady [facility] Respiratory rate 2019-12-12 13:05:00 20 /min [facility] Body height 2019-12-12 13:05:00 188 cm [facility] C ollege of Medicine Body weight 2019-12-12 13:05:00 104.237 kg [facility] ollege of Medicine BMI 2019-12-12 13:05:00 29.50 kg/m2 [facility] ollege [facility] Oxygen saturation in 2019-12-12 13:05:00 100 /min [facility] of Arterial blood by Medicine Pulse oximetry Systolic blood 2019-12-12 13:05:00 130 mm[Hg] [facility] of pressure Medicine Diastolic blood 2019-12-12 13:05:00 68 mm[Hg] [facility] Medicine Heart rate 2019-12-12 13:05:00 46 /min [facility] ollege [facility] Body temperature 2019-12-12 13:05:00 36.33 Milady [facility] Respiratory rate 2019-12-12 13:05:00 20 /min [facility] Body height 2019-12-12 13:05:00 188 [facility] Body weight 2019-12-12 13:05:00 [facility]237 [facility] 2019-12-12 13:05:00 29.50 kg[facility]m2 [facility] Oxygen saturation in 2019-12-12 13:05:00 100 /min [facility] of Arterial blood by Medicine Pulse oximetry Systolic blood 2019-04-25 16:07:00 160 mm[Hg] [facility] Medicine Diastolic blood 2019-04-25 16:07:00 72 mm[Hg] [facility] Medicine Heart rate 2019-04-25 16:07:00 48 /min [facility] Respiratory rate 2019-04-25 16:07:00 16 /min [facility] Body height 2019-04-25 16:07:00 188 [facility] Body weight 2019-04-25 16:07:00 103.42 [facility] BMI 2019-04-25 16:07:00 29.27 kg/m2 [facility] Oxygen saturation in 2019-04-25 16:07:00 98 /min [facility] of Arterial blood by Medicine Pulse oximetry Systolic blood 2019-04-25 16:07:00 160 mm[Hg] [facility] of pressure Medicine Diastolic blood 2019-04-25 16:07:00 72 mm[Hg] [facility] Medicine Heart rate 2019-04-25 16:07:00 48 /min [facility] ollege of Medicine Respiratory rate 2019-04-25 16:07:00 16 /min [facility] Body height 2019-04-25 16:07:00 188 cm [facility] Body weight 2019-04-25 16:07:00 103.42 kg [facility] BMI 2019-04-25 16:07:00 29.27 kg/m2 [facility] Oxygen saturation in 2019-04-25 16:07:00 98 /min [facility] Arterial blood by Medicine Pulse oximetry Systolic blood 2019-01-29 16:18:00 142 mm[Hg] [facility] pressure Medicine Diastolic blood 2019-01-29 16:18:00 74 mm[Hg] [facility] Medicine Heart rate 2019-01-29 16:18:00 51 /min [facility] Medicine Respiratory rate 2019-01-29 16:18:00 18 /min [facility] Body height 2019-01-29 16:18:00 188 cm [facility] Body weight 2019-01-29 16:18:00 104.327 kg [facility] BMI 2019-01-29 16:18:00 29.53 kg/m2 [facility] Oxygen saturation in 2019-01-29 16:18:00 98 /min [facility] Arterial blood by Medicine Pulse oximetry Systolic blood 2019-01-29 16:18:00 142 mm[Hg] [facility] pressure Medicine Diastolic blood 2019-01-29 16:18:00 74 mm[Hg] [facility] Medicine Heart rate 2019-01-29 16:18:00 51 /[facility] Respiratory rate 2019-01-29 16:18:00 18 /min [facility] Body height 2019-01-29 16:18:00 188 cm [facility] Body weight 2019-01-29 16:18:00 104.327 kg [facility] BMI 2019-01-29 16:18:00 29.53 kg/m2 [facility] Oxygen saturation in 2019-01-29 16:18:00 98 /min [facility] Arterial blood by Medicine Pulse oximetry Procedures Procedure Date / Time Performing Clinician Source [facility]11 10:59:12 [facility] ELECTROCARDIOGRAM COMPLETE 2021-08-31 13:56:42 Ciara Delgado [facility] ELECTROCARDIOGRAM COMPLETE 2021-01-12 14:52:11 Ciara Delgado [facility] ELECTROCARDIOGRAM COMPLETE 2019-12-12 13:35:50 Ciara Delgado [facility] ELECTROCARDIOGRAM COMPLETE 2019-04-25 16:24:09 Ciara Delgado [facility] Plan of Care Planned Activity Planned Date Details Comments Source Future Scheduled 2021-11-11 COVID-19 Vaccine [facility] Test 11:09:23 (#1) [code = of Medicine COVID-19 Vaccine (#1)] Future Scheduled 2021-11-11 TETANUS SHOT (ADULT) [facility] Test 11:09:23 [code = TETANUS SHOT of Medi cine (ADULT)] Future Scheduled 2021-11-11 Diabetic foot [facility] Col [facility]ge Test 11:09:23 examination of Medicine (regime/therapy) [code = 146996522] Future Scheduled 2021-11-11 ANNUAL DIABETIC [facility] C [facility]lege Test 11:09:23 RETINOPATHY of Medicine SCREENING [code = ANNUAL DIABETIC RETINOPATHY SCREENING] Future Scheduled 2021-11-11 BMI FOLLOW UP PLAN [facility] Test 11:09:23 [code = BMI FOLLOW of Medici ne UP PLAN] Future Scheduled 2021-11-11 Hepatitis C [facility] Add[facility] Test 11:09:23 screening of Medicine (procedure) [code = 601884031] Future Scheduled 2021-11-11 ZOSTER VACCINE (1 of [facility] Test 11:09:23 2) [code = ZOSTER of Medicin e VACCINE (1 of 2)] Future Scheduled 2021-11-11 FALL SCREEN [code = [employer] Test 11:09:23 FALL SCREEN] of Medicine Future Scheduled 2021-11-11 Pneumococcal 65+ (1 [employer] Test 11:09:23 - PCV) [code = of Medicine Pneumococcal 65+ (1 - PCV)] Future Scheduled 2021-11-11 MEDICARE AWV [facility] Test 11:09:23 (Initial) [code = of Medicin e MEDICARE AWV (Initial)] Future Scheduled 2021-11-11 FLU VACCINE > 6 [facility] C [facility] Test 11:09:23 MONTHS [code = FLU of Medici ne VACCINE > 6 MONTHS] Future Scheduled 2021-11-11 OK NON-INVAS Ordered: [facility] Test 10:59:12 PHYSIOLOGIC STD 11/11/2021 of Medicine EXTREMITY ART 1-2 LEVEL [code = 15868] Future Scheduled 2021-08-31 LIPID PANEL [code = Ordered: [facility] Test 09:02:29 15374-1] 08/31/2021 of Medicine Future Scheduled 2021-08-31 COMPREHENSIVE Ordered: [facility] Col [facility]ge Test 09:02:29 METABOLIC PANEL 08/31/2021 of Medicine [code = 30673-4] Future Scheduled 2021-08-31 CBC W/O DIFF W PLT Ordered: [employer] Test 09:02:29 [code = 6690-2] 08/31/2021 of Medicine Future Scheduled 2021-08-31 HEMOGLOBIN A1C [code Ordered: [employer] Test 09:02:29 = 4548-4] 08/31/2021 of Medicine Future Scheduled 2021-08-31 COVID-19 Vaccine (1) [employer] Test 08:08:23 [code = COVID-19 of Medicine Vaccine (1)] Future Scheduled 2021-08-31 TETANUS SHOT (ADULT) [employer] Test 08:08:23 [code = TETANUS SHOT of Medi cine (ADULT)] Future Scheduled 2021-08-31 BMI FOLLOW UP PLAN [employer] Test 08:08:23 [code = BMI FOLLOW of Medici ne UP PLAN] Future Scheduled 2021-08-31 Hepatitis C [facility] Test 08:08:23 screening of Medicine (procedure) [code = 787901991] Future Scheduled 2021-08-31 ZOSTER VACCINE (1 of [employer] Test 08:08:23 2) [code = ZOSTER of Medicin e VACCINE (1 of 2)] Future Scheduled 2021-08-31 FALL SCREEN [code = [facility] Test 08:08:23 FALL SCREEN] of Medicine Future Scheduled 2021-08-31 Pneumococcal 65+ (1 [employer] Test 08:08:23 of 1 - PPSV23) [code of Medi cine = Pneumococcal 65+ (1 of 1 - PPSV23)] Future Scheduled 2021-08-31 FLU VACCINE > 6 [facility] Test 08:08:23 MONTHS [code = FLU of Medici ne VACCINE > 6 MONTHS] Future Scheduled 2021-08-31 MEDICARE AWV [place] [facility] Test 08:08:23 (Initial) [code = of Medicin e MEDICARE AWV (Initial)] Diagnostic Test 2021-08-31 ECHO, COMPLETE [code Expected: [facility] Pending 00:00:00 = 84600] 08/31/2021, of Medicine Expires: 03/03/2022 Future Scheduled 2021-01-12 LIPID PANEL [code = Ordered: [facility] Test 09:55:43 07887-5] 01/12/2021 of Medicine Future Scheduled 2021-01-12 COMPREHENSIVE Ordered: [facility] Test 09:55:43 METABOLIC PANEL 01/12/2021 of Medicine [code = 25562-9] Future Scheduled 2021-01-12 CBC W/O DIFF W PLT Ordered: [employer] Test 09:55:43 [code = 6690-2] 01/12/2021 of Medicine Future Scheduled 2021-01-12 COVID-19 Vaccine (1) [employer] Test 09:29:35 [code = COVID-19 of Medicine Vaccine (1)] Future Scheduled 2021-01-12 TETANUS SHOT (ADULT) [employer] Test 09:29:35 [code = TETANUS SHOT of Medi cine (ADULT)] Future Scheduled 2021-01-12 Diabetic foot [facility] Test 09:29:35 examination of Medicine (regime/therapy) [code = 350606552] Future Scheduled 2021-01-12 ANNUAL DIABETIC [facility] Test 09:29:35 RETINOPATHY of Medicine SCREENING [code = ANNUAL DIABETIC RETINOPATHY SCREENING] Future Scheduled 2021-01-12 BMI FOLLOW UP PLAN [employer] Test 09:29:35 [code = BMI FOLLOW of Medici ne UP PLAN] Future Scheduled 2021-01-12 Hepatitis C [facility] Add[facility] Test 09:29:35 screening of Medicine (procedure) [code = 589817959] Future Scheduled 2021-01-12 ZOSTER VACCINE (1 of [employer] Test 09:29:35 2) [code = ZOSTER of Medicin e VACCINE (1 of 2)] Future Scheduled 2021-01-12 FALL SCREEN [code = [employer] Test 09:29:35 FALL SCREEN] of Medicine Future Scheduled 2021-01-12 PNEUMOVAX >=65 [facility] Test 09:29:35 (PPSV23) [code = of Medicine PNEUMOVAX >=65 (PPSV23)] Future Scheduled 2021-01-12 MEDICARE AWV [facility] Test 09:29:35 (Initial) [code = of Medicin e MEDICARE AWV (Initial)] Future Scheduled 2021-01-12 FLU VACCINE > 6 [facility] Test 09:29:35 MONTHS [code = FLU of Medici ne VACCINE > 6 MONTHS] Future Scheduled PNEUMOVAX >=65 [facility] Test (PPSV23) [code = of Medicine PNEUMOVAX >=65 (PPSV23)] Future Scheduled PREVNAR >= 65 [facility] Test (PCV13) [code = of Medicine PREVNAR >= 65 (PCV13)] Future Scheduled FLU VACCINE > 6 [facility] C [facility]lege Test MONTHS [code = FLU of Medici ne VACCINE > 6 MONTHS] Future Scheduled TETANUS SHOT (ADULT) [facility] Test [code = TETANUS SHOT of Medi cine (ADULT)] Future Scheduled Diabetic foot [place] [facility] Test examination of Medicine (regime/therapy) [code = 215970297] Future Scheduled ANNUAL DIABETIC [facility] Test RETINOPATHY of Medicine SCREENING [code = ANNUAL DIABETIC RETINOPATHY SCREENING] Future Scheduled BMI FOLLOW UP PLAN [employer] Test [code = BMI FOLLOW of Medici ne UP PLAN] Future Scheduled FALL SCREEN [code = [employer] [facility] FALL SCREEN] of Medicine Future Scheduled PNEUMOVAX >=65 [place] [facility] Test (PPSV23) [code = of Medicine PNEUMOVAX >=65 (PPSV23)] Future Scheduled MEDICARE AWV [facility] Add[facility]ge Test (Initial) [code = of Medicin e MEDICARE AWV (Initial)] Future Scheduled FLU VACCINE > 6 [place] [facility] Test MONTHS [code = FLU of Medici ne VACCINE > 6 MONTHS] Future Scheduled LIPID PANEL [code = Ordered: [facility] or [employer] Test 76717-0] 03/03/2020 of Medicine Future Scheduled COMPREHENSIVE Ordered: [facility] [employer] Test METABOLIC PANEL 03/03/2020 of Medicine [code = 83871-9] Future Scheduled CBC W/O DIFF W PLT Ordered: [employer] [code = 6690-2] 03/03/2020 of Medicine Future Scheduled HEMOGLOBIN A1C [code Ordered: [employer] = 4548-4] 03/03/2020 of Medicine Future Scheduled TSH [code = 49556-7] Ordered: [employer] 03/03/2020 of Medicine Future Scheduled URINALYSIS AUTO Ordered: [facility] C ollege Test W/SCOPE [code = 03/03/2020 of Medicine 18235-8] Future Scheduled TETANUS SHOT (ADULT) [employer] [code = TETANUS SHOT of Medi cine (ADULT)] Future Scheduled Diabetic foot [facility] Col lege Test examination of Medicine (regime/therapy) [code = 781165645] Future Scheduled ANNUAL DIABETIC [facility] C [employer]lege Test RETINOPATHY of Medicine SCREENING [code = ANNUAL DIABETIC RETINOPATHY SCREENING] Future Scheduled BMI FOLLOW UP PLAN [employer] [code = BMI FOLLOW of Medici ne UP PLAN] Future Scheduled ZOSTER VACCINE (1 of [employer] Test 2) [code = ZOSTER of Medicin e VACCINE (1 of 2)] Future Scheduled FALL SCREEN [code = [employer] FALL SCREEN] of Medicine Future Scheduled PNEUMOVAX >=65 [facility] [employer] Test (PPSV23) [code = of Medicine PNEUMOVAX >=65 (PPSV23)] Future Scheduled MEDICARE AWV [facility] Addy ege Test (Initial) [code = of Medicin e MEDICARE AWV (Initial)] Future Scheduled FLU VACCINE > 6 [facility] C ollege Test MONTHS [code = FLU of Medici ne VACCINE > 6 MONTHS] Future Scheduled RPR NON-REFLEX Ordered: [facility] [employer] Test QUALITATIVE [code = 05/25/2020 of Medic ine 81887-1] Future Scheduled SEDIMENTATION RATE Ordered: [facility] r [facility] Test MODIFIED WESTERGREN 05/25/2020 of Medic ine [code = 4537-7] Future Scheduled AMMONIA [code = Ordered: [facility] [employer] Test 29969] 05/25/2020 of Medicine Future Scheduled VITAMIN B12 [code = Ordered: [employer] 2132-9] 05/25/2020 of Medicine Future Scheduled VITAMIN B1 [code = Ordered: [employer] 86127-4] 05/25/2020 of Medicine Future Scheduled TETANUS SHOT (ADULT) [employer] [code = TETANUS SHOT of Medi cine (ADULT)] Future Scheduled Diabetic foot [facility] Col lege Test examination of Medicine (regime/therapy) [code = 988727063] Future Scheduled ANNUAL DIABETIC [facility] [employer] [facility] RETINOPATHY of Medicine SCREENING [code = ANNUAL DIABETIC RETINOPATHY SCREENING] Future Scheduled BMI FOLLOW UP PLAN [employer] [code = BMI FOLLOW of Medici ne UP PLAN] Future Scheduled HEPATITIS C [facility] Addy [employer]ge Test SCREENING [code = of Medicin e HEPATITIS C SCREENING] Future Scheduled ZOSTER VACCINE (1 of [employer] Test 2) [code = ZOSTER of Medicin e VACCINE (1 of 2)] Future Scheduled FALL SCREEN [code = [employer] FALL SCREEN] of Medicine Future Scheduled PNEUMOVAX >=65 [employer] Test (PPSV23) [code = of Medicine PNEUMOVAX >=65 (PPSV23)] Future Scheduled MEDICARE AWV [facility] Addy ege Test (Initial) [code = of Medicin e MEDICARE AWV (Initial)] Future Scheduled COVID-19 Vaccine [facility] [employer] Test Evaluation [code = of Medici ne COVID-19 Vaccine Evaluation] Future Scheduled TETANUS SHOT (ADULT) [employer] Test [code = TETANUS SHOT of Medi cine (ADULT)] Future Scheduled Diabetic foot [facility] Col [employer]ge Test examination of Medicine (regime/therapy) [code = 075142520] Future Scheduled ANNUAL DIABETIC [facility] [employer] [facility] RETINOPATHY of Medicine SCREENING [code = ANNUAL DIABETIC RETINOPATHY SCREENING] Future Scheduled BMI FOLLOW UP PLAN [employer] [code = BMI FOLLOW of Medici ne UP PLAN] Future Scheduled HEPATITIS C [facility] Addy [employer]ge Test SCREENING [code = of Medicin e HEPATITIS C SCREENING] Future Scheduled ZOSTER VACCINE (1 of [employer] Test 2) [code = ZOSTER of Medicin e VACCINE (1 of 2)] Future Scheduled FALL SCREEN [code = [employer] FALL SCREEN] of Medicine Future Scheduled PNEUMOVAX >=65 [facility] [employer] Test (PPSV23) [code = of Medicine PNEUMOVAX >=65 (PPSV23)] Future Scheduled MEDICARE AWV [facility] [employer] Test (Initial) [code = of Medicin e MEDICARE AWV (Initial)] Future Scheduled MEDICARE AWV [code = [employer] MEDICARE AWV] of Medicine Future Scheduled TETANUS SHOT (ADULT) [employer] Test [code = TETANUS SHOT of Medi cine (ADULT)] Future Scheduled BMI FOLLOW UP PLAN [employer] [code = BMI FOLLOW of Medici ne UP PLAN] Future Scheduled FALL SCREEN [code = [employer] FALL SCREEN] of Medicine Future Scheduled PNEUMOVAX >=65 [facility] [employer] Test (PPSV23) [code = of Medicine PNEUMOVAX >=65 (PPSV23)] Future Scheduled PREVNAR >= 65 [facility] Col [facility]ge Test (PCV13) [code = of Medicine PREVNAR >= 65 (PCV13)] Future Scheduled FLU VACCINE > 6 [facility] [employer] Test MONTHS [code = FLU of Medici ne VACCINE > 6 MONTHS] Future Scheduled HEMOGLOBIN A1C [code Ordered: [employer] Test = 4548-4] 04/25/2019 of Medicine Future Scheduled LIPID PANEL [code = Ordered: [employer] 92643-5] 04/25/2019 of Medicine Future Scheduled TSH [code = 41371-4] Ordered: [employer] 04/25/2019 of Medicine Future Scheduled T4 FREE [code = Ordered: [facility] [employer] Test 3024-7] 04/25/2019 of Medicine Future Scheduled T3 [code = 3053-6] Ordered: [employer] 04/25/2019 of Medicine Future Scheduled MEDICARE AWV [code = [employer] MEDICARE AWV] of Medicine Future Scheduled TETANUS SHOT (ADULT) [employer] Test [code = TETANUS SHOT of Medi cine (ADULT)] Future Scheduled BMI FOLLOW UP PLAN [employer] [code = BMI FOLLOW of Medici ne UP PLAN] Future Scheduled FALL SCREEN [code = [employer] FALL SCREEN] of Medicine Future Scheduled EXTENDED HOLTER 1 Occurrences [facility] [employer] Test MONITOR (CONTINUOUS starting of Medic ine >48) [code = 0296T] 12/12/2019 until 12/11/2020 Future Scheduled HOLTER MONITOR 24 1 Occurrences [employer] [code = 77420] starting of Medicine 04/25/2019 until 04/25/2020 Future Scheduled EXTENDED HOLTER 1 Occurrences [facility] [employer] Test MONITOR (CONTINUOUS starting of Medic ine >48) [code = 0296T] 01/29/2019 until 01/30/2020 Encounters Start End Encounter Admission Attending Care Care Encounter Source Date/Time Date/Time Type Type Clinicians Facility Department ID 2022-01-17 Outpatient Nash, Na STLMLC STLMLC [id number] Common 14:31:01 [facility] 2021-11-25 Outpatient Nash, Na STLMLC STLMLC [id number] 2 Common 10:06:01 [facility] 2021-11-24 Outpatient Nash, Na STLMLC STLMLC [id number] 2 Common 13:39:01 [facility] 2021-10-28 Outpatient Nash, Na STLMLC STLMLC [id number] Common 16:52:00 [facility] 2021-07-13 Outpatient Nash, Na STLMLC STLMLC [id number] 2 Common 14:19:33 [facility] 2021-07-13 Outpatient Nash, Na STLMLC STLMLC [id number] 2 Common 13:53:30 [id number] [facility] 2021-07-13 Outpatient Nash, Na STLMLC STLMLC [id number] 2 Common 13:52:37 [id number] [facility] 2021-07-13 Outpatient Nash, Na STLMLC STLMLC [id number] 2 Common 13:29:15 [id number] [facility] 2021-07-13 Outpatient Nash, Na STLMLC STLMLC [id number] 2 Common 13:18:12 [id number] [facility] 2021-07-13 Outpatient Nash, Na STLMLC STLMLC [id number] 2 Common 13:05:38 [id number] [facility] 2021-07-13 Outpatient Nash, Na STLMLC STLMLC [id number] 2 Common 12:55:51 [id number] [facility] 2021-07-13 Outpatient Shmuel, Kin STLMLC STLMLC [id number] Common 12:38:53 [id number] [facility] 2021-07-13 Outpatient Shmuel, Kin STLMLC STLMLC [id number] Common 12:31:21 [id number] [facility] 2021-07-13 Outpatient Shmuel, Kin STLMLC STLMLC [id number] Common 12:30:55 [id number] [facility] 2021-07-13 Outpatient Antoni Mi STLMLC STLMLC [id number] Common 12:16:20 [id number] [facility] 2021-07-13 Outpatient STLMLC STLMLC [id number] Common 11:46:48 [id number] [facility] 2020-04-24 Inpatient UR MED, [facility] Neurology [id number] [facility] 14:32:00 MOHSEN 2022-01-27 2022-01-27 ambulatory STLMLC STLMLC [id number] Common 00:00:00 00:00:00 [facility] 2022-01-23 2022-01-23 ambulatory STLMLC STLMLC [id number] Common 00:00:00 00:00:00 [facility] 2022-01-19 2022-01-19 ambulatory STLMLC STLMLC [id number] Common 00:00:00 00:00:00 [facility] 2021-12-23 2021-12-23 ambulatory STLMLC STLMLC [id number] Common 00:00:00 00:00:00 [facility] 2021-12-20 2021-12-20 ambulatory STLMLC STLMLC [id number] Common 00:00:00 00:00:00 [facility] 2021-12-13 2021-12-13 ambulatory STLMLC STLMLC [id number] Common 00:00:00 00:00:00 [facility] 2021-12-07 2021-12-07 [facility] [id number] [facility] 09:30:00 09:30:[address] [facility] 2021-12-07 2021-12-07 Outpatient R [facility] [id number] Univers 08:00:00 08:00:00 [id number] [facility] 2021-12-07 2021-12-07 Outpatient R ALEYDA [facility] [id number] Univers 08:00:00 08:00:[address] [facility] 2021-12-01 2021-12-01 ambulatory STLMLC STLMLC [id number] Common 00:00:00 00:00:00 [facility] 2021-11-29 2021-11-29 ambulatory STLMLC STLMLC [id number] Common 00:00:00 00:00:00 [facility] 2021-11-25 2021-11-25 ambulatory STLMLC STLMLC [id number] Common 00:00:00 00:00:00 [facility] 2021-11-24 2021-11-24 Outpatient R [facility] [id number] Univers 14:30:00 14:30:00 [id number] [facility] 2021-11-24 2021-11-24 [facility] [id number] Univers 14:30:00 14:30:00 GUMARO [facility] 2021-11-24 2021-11-24 ambulatory STLMLC STLMLC [id number] Common 00:00:00 00:00:00 [facility] 2021-11-23 2021-11-23 Transition SHIELA Bruce 1.2.840.114 [id number] [facility] 00:00:00 00:00:00 of Care Davy CABRERA 350.1.13.10 [facility] CRISTEL 4.2.7.2.686 Adore valdez [id number] [address] 2021-11-23 2021-11-23 ambulatory STLMLC STLMLC [id number] Common 00:00:00 00:00:00 [facility] 2021-11-18 2021-11-18 Outpatient BCM M [id number] [facility] 10:06:18 10:43:48 [facility] 2021-11-18 2021-11-18 Outpatient BCM BCM [id number] [facility] 09:02:35 10:43:36 [facility] 2021-11-11 2021-11-11 Office ELVER DELGADO [id number] [id number] [facility] 09:34:02 11:36:12 Visit YOCHAI AMBULATOR 350.1.13.21 College Y 0.2.7.2.686 of [id number] [facility] 375 e 2021-10-27 2021-10-27 ambulatory STLMLC STLMLC [id number] Common 00:00:00 00:00:00 [facility] 2021-10-26 2021-10-26 ambulatory STLMLC STLMLC [id number] Common 00:00:00 00:00:00 [facility] 2021-10-18 2021-10-18 ambulatory STLMLC STLMLC [id number] Common 00:00:00 00:00:00 [facility] 2021-08-31 2021-08-31 Office ELVER DELGADO [id number] [facility] 08:16:32 11:42:46 Visit YOCHAI AMBULATOR 350.1.13.21 College Y 0.2.7.2.686 of [id number] [facility] 375 e 2021-05-16 2021-05-16 ambulatory STLMLC STLMLC [id number] Common 00:00:00 00:00:00 [facility] 2021-02-28 2021-02-28 Outpatient STLMLC STLMLC [id number] Common 00:00:00 00:00:00 [facility] 2021-02-24 2021-02-24 Outpatient STLMLC STLMLC [id number] Common 00:00:00 00:00:00 [facility] 2021-02-04 2021-02-04 Outpatient STLMLC STLMLC [id number] Common 00:00:00 00:00:00 [facility] 2021-01-12 2021-01-12 Office ELVER Delgado [id number] [facility] 09:17:58 09:37:58 Visit Yochai AMBULATOR 350.1.13.21 College Y 0.2.7.2.686 of [id number] [facility] 375 e 2021-01-10 2021-01-10 Outpatient STLMLC STLMLC [id number] Common 00:00:00 00:00:00 [facility] 2020-12-21 2020-12-21 Outpatient STLMLC STLMLC [id number] Common 00:00:00 00:00:00 [facility] 2020-12-16 2020-12-16 Outpatient STLMLC STLMLC [id number] Common 00:00:00 00:00:00 [facility] 2020-12-10 2020-12-10 Outpatient STLMLC STLMLC [id number] Common 00:00:00 00:00:00 [facility] 2020-12-09 2020-12-09 Outpatient STLMLC STLMLC [id number] Common 00:00:00 00:00:00 [facility] 2020-10-21 2020-10-21 Outpatient STLMLC STLMLC [id number] Common 00:00:00 00:00:00 [facility] 2020-10-11 2020-10-11 Outpatient STLMLC STLMLC [id number] Common 00:00:00 00:00:00 [facility] 2020-10-11 2020-10-11 Outpatient STLMLC STLMLC [id number] Common 00:00:00 00:00:00 [facility] 2020-10-11 2020-10-11 Outpatient STLMLC STLMLC [id number] Common 00:00:00 00:00:00 [facility] 2020-09-13 2020-09-13 Outpatient STLMLC STLMLC [id number] Common 00:00:00 00:00:00 [facility] 2020-09-01 2020-09-01 Outpatient STLMLC STLMLC [id number] Common 00:00:00 00:00:00 [facility] 2020-08-27 2020-08-27 Outpatient STLMLC STLMLC [id number] Common 00:00:00 00:00:00 [facility] 2020-08-06 2020-08-06 Outpatient STLMLC STLMLC [id number] Common 00:00:00 00:00:00 [facility] 2020-07-14 2020-07-14 Office ELVER Delgado [id number] [facility] 09:13:36 09:54:23 Visit [place]ai AMBULATOR 350.1.13.21 College Y 0.2.7.2.686 of [id number] [facility] 375 e 2020-05-25 2020-05-25 Office ELVER Ash 1.2.840.114 [id number] 08:41:12 10:27:14 Visit Annise AMBULATOR 350.1.13.21 Y 0.2.7.2.686 [id number] 800 2020-05-25 2020-05-25 Office ELVER Ash 1.2.840.[id number] [place] [address] 08:41:12 10:27:14 Visit Annise AMBULATOR 350.1.13.21 College Y 0.2.7.2.686 of [id number] [facility] 800 e 2020-04-30 2020-04-30 Outpatient STLMLC STLMLC [id number] Common 00:00:00 00:00:00 [facility] 2020-03-15 2020-03-15 Outpatient STLMLC STLMLC [id number] Common 00:00:00 00:00:00 [facility] 2020-03-15 2020-03-15 Outpatient STLMLC STLMLC [id number] Common 00:00:00 00:00:00 [facility] 2020-03-04 2020-03-04 [id number] Common 10:00:00 10:00:00 [facility] 2020-03-03 2020-03-03 Office ELVER Delgado 1.2.229.012 [id number] 08:00:00 08:20:00 Visit Yochai AMBULATOR 350.1.13.21 Y 0.2.7.2.686 [id number] 375 2020-03-03 2020-03-03 Office ELVER Delgado 1.2.233.192 [id number] [facility] 08:00:00 08:20:00 Visit [place]ai AMBULATOR 350.1.13.21 College Y 0.2.7.2.686 of [id number] [facility] 375 e 2020-01-22 2020-01-22 [facility] 1.2.840.114 [id number] 06:35:00 08:45:00 Encounter gladys Shania Franz Giovanna 350.1.13.10 [place] 4.2.7.2.686 Surgical [id number] [place] 071 2020-01-21 2020-01-21 Laboratory Only, [facility] 1.2.840.114 [id number] 08:39:41 08:54:41 Only Test [place] 350.1.13.10 [place] 4.2.7.2.686 [place] [id number] 353 2019-12-12 2019-12-12 Office ELVER Delgado 1.2.017.909 [id number] 07:15:07 07:35:07 Visit Yochai AMBULATOR 350.1.13.21 Y 0.2.7.2.686 [id number] 375 2019-12-12 2019-12-12 Office ELVER Delgado 1.2.005.759 [id number] [facility] 07:15:07 07:35:07 Visit [place]ai AMBULATOR 350.1.13.21 College Y 0.2.7.2.686 of [id number] [facility] 375 e 2019-04-25 2019-04-25 Office ELVER Delgado 1.2.017.710 [id number] 09:58:23 10:18:23 Visit Yochai AMBULATOR 350.1.13.21 Y 0.2.7.2.686 [id number] 315 2019-04-25 2019-04-25 Office ELVER Delgado 1.2.468.889 [id number] 6422 [facility] 09:58:23 10:18:23 Visit [place]ai AMBULATOR 350.1.13.21 College Y 0.2.7.2.686 of [id number] [facility] 315 e 2019-01-29 2019-01-29 Office ELVER Delgado 1.2.734.571 [id number] 11:03:31 11:23:31 Visit Timii AMBULATOR 350.1.13.21 Y 0.2.7.2.686 [id number] [facility] 2019-01-29 2019-01-29 Office ELVER Delgado 1.2.924.603 [id number] [facility] 11:03:31 11:23:31 Visit Yojackiei AMBULATOR 350.1.13.21 College Y 0.2.7.2.686 [id number] [facility] 315 e Results Test Description Test Time Test Comments Results Result Comments Source POCT-GLUCOSE METER 2020-04-26 11:38:00 Test Item Value Reference Range Interpretation Comme nts POC-GLUCOSE METER (BEAKER) 215 mg/dL 70-110 H : TESTED AT [facility] [address] [facility] (test code = 1538) [facility], [address]: Pottery Decorator/Techni karmen ID = [id number] for MIKEY COLÓN POCT-GLUCOSE [id number] 09:06:00 Test Item Value Reference Range Interpretation Comments POC-GLUCOSE METER 118 mg/dL 70-110 H : TESTED A T [facility] 67[address] (BEAKER) (test code = JULIUS [facility], 1538) [address]: Pottery Decorator/Techni karmen ID = [id number] for MIKEY ALCAZAR BASIC METABOLIC [id number] 05:10:00 Test Item Value Reference Range Interpretation [...] S NOT APPLICABLE FOR DIALYSIS PATIEN TS. Pottery Decorator ID - WONG MCBC W/PLT COUNT & AUTO [id number] 04:37:00 Test Item Value Reference Range Interpretation [...] PERCENT (BEAKER) (test code = 2801) POCT-GLUCOSE [id number] 22:45:00 Test Item Value Reference Range Interpretation Comments POC-GLUCOSE METER 180 mg/dL 70-110 H : TESTED A T [facility] [address] (BEAKER) (test code = JULIUS Gamble [facility], 1538) [address]: Pottery Decorator/Techni karmen ID = [id number] for DO VE, MELANY SARS-COV2/RT-PCR ([facility])2020-04-25 16:41:00 Test Item Value Reference Range Interpretation Comments SARS-COV2/RT-PCR (test Negative Not Detected, Negative, code = 8222368) See external report for linked test SARS-COV-2 PERFORMING LAB [facility] YESICA (test code = 4763153) Negative result for this test determines that [...] individuals suspected of COVID-19 by their healthcare provider.This test [...] justifying the authorization of the emergency use ofin vitro diagnostic tests for detection and/or diagnosis of COVID-19 is terminated under Section 564(b)(2) of the Act or the EUA is revoked under Section 564(g) of the Act.Testing was performed using the [place] SARS-CoV-2 assay.Fact Sheet for Healthcare Providers:https://www.Gizmoz.DNage/ace/RT_SAR U-MtM-7_LVM_Vwvp_Bvuow_30-499930.pdfFact Sheet for Healthcare Patients:https://www.Gizmoz.DNage/s al/OP_MKXX-FbM-6_Nnewuyn_Jdqq_Tgqcy_HD_79-752897P7.pdfPerforming Laboratory:[facility], [place] [address]KD, BRAIN, WITHOUT [id number] 15:04:00Unlisted Reason for Exam - Click Yes and Enter Reason Below->No [facility] : 1940 Sex: MFINALREPORT MR, BRAIN, WITHOUT CONTRAST INDICATION: Stroke, follow up Technique: MRIof the brain utilizing axial T1, T2, FLAIR, [...] or significant mass effect. Signed: Ludin Castanon Verified Date/Time: 04/25/2020 15:04:20 Reading Location: [address] Neuro Reading Room -GLUCOSE [id number] 12:17:00 Test Item Value Reference Range Interpretation Comments POC-GLUCOSE METER 148 mg/dL 70-110 H : TESTED A T [facility] [address] (BEZAIRE) (test code [facility], = 1538) [address]: Pottery Decorator/Techni karmen ID = [id number] for TSEG GAI, TSIGHEREDA CT, CTANGIO [id number] 09:22:00Unlisted Reason for Exam - Click Yes and Enter Reason Below->No [facility] : 1940 Sex: MFINALREPORT CT, CAROTID, ANGIO, CT, CTANGIO BRAINBRAIN CT WITHOUT CONTRAST INDICATION: Neuro deficit, acute, stroke suspected COMPARISON: CT head of the same date TECHNIQUE:Rapid acquisition spiral images were obtained between the aortic arch and the cranial vertex during intravenous contrast infusion to reconstruct axial images and angiographic 3D maximum intensity projections (MIP).3-D volumetric reformatted images were created at a dedicated workstation. Precontrast images of thebrain were also obtained. Stenosis evaluation reported in compliance with NASCET criteria. DOSE REDUCTION: Dose modulation, iterative reconstruction, and/or weight-based adjustment of the mA/kV was utilized to reduce the radiation dose to as low as reasonably achievable. FINDINGS:NECT BRAIN: Hypoattenuation within the right frontal subcortical white matter, which, in the appropriate clinical setting,may represent an acute versus subacute infarct. 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 P1-P2 branches.Venous opacification: Major dural sinuses unremarkable [...] MDReport Verified Date/Time: 04/25/2020 09:22:54 Reading Location: [address] Neuro Reading Room [facility] [place] [place], CAR[place], ANGIO 2020-04-25 09:22:00Unlisted Reason for Exam - Click Yes and Enter Reason Below->[facility] DEE DEE GUEVARA : 1940 Sex: MFINALREPORT CT, CAROTID, ANGIO, CT, CTANGIO BRAINBRAIN CT WITHOUT CONTRAST INDICATION: Neuro deficit, acute, stroke suspected COMPARISON: CT head of the same date TECHNIQUE:Rapid acquisition spiral images were obtained between the aortic arch and the cranial vertex during intravenous contrast infusion to reconstruct axial images and angiographic 3D maximum intensity projections (MIP).3-D volumetric reformatted images were created at a dedicated workstation. Precontrast images of thebrain were also obtained. Stenosis evaluation reported in compliance with NASCET criteria. DOSE REDUCTION: Dose modulation, iterative reconstruction, and/or weight-based adjustment of the mA/kV was utilized to reduce the radiation dose to as low as reasonably achievable. FINDINGS:NECT BRAIN: Hypoattenuation within the right frontal subcortical white matter, which, in the appropriate clinical setting,may represent an acute versus subacute infarct. 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 P1-P2 branches.Venous opacification: Major dural sinuses unremarkable [...] MDReport Verified Date/Time: 04/25/2020 09:22:54 Reading Location: [address] Neuro Reading Room POCT-GLUCOSE METER 2020-04-25 08:05:00 Test Item Value Reference Range Interpretation Comments POC-GLUCOSE METER 108 mg/dL 70-110 : TESTED A T [facility] 67[address] (BEAKER) (test code [facility], = 1538) [address]: Pottery Decorator/Techni karmen ID = [id number] for DIMITRIOS COOK HEMOGLOBIN [id number] 07:59:00 Test Item Value Reference Range Interpretation Comments HEMOGLOBIN A1C (BEAKER) (test code = 6.7 % 4.3-6.1 H 368) BASIC METABOLIC [id number] 06:31:00 Test Item Value Reference Range Interpretation [...] S NOT APPLICABLE FOR DIALYSIS PATIEN TS. Pottery Decorator ID - WONG MCBC W/PLT COUNT & AUTO [id number] 05:16:00 Test Item Value Reference Range Interpretation [...] 0-1 PERCENT (BEAKER) (test code = 2801) TSH/FREE T4 IF [id number] 04:19:00 Test Item Value Reference Range Interpretation Comments THYROID STIMULATING HORMONE 0.559 uIU/mL 0.350-4.940 (BEAKER) (test code = 772) Pottery Decorator ID - WONG MVITAMIN B12 AND [id number] 04:19:00 Test Item Value Reference Range Interpretation Comments VITAMIN B12 (BEAKER) (test code = 202 pg/mL 213-816 L 774) FOLATE (BEAKER) (test code = 362) 15.40 ng/mL >=7.00 Pottery Decorator ID - WONG MLIPID [id number] 01:15:00 Test Item Value Reference Range Interpretation Comments TRIGLYCERIDES (BEAKER) (test code = 219 mg/dL 540) CHOLESTEROL (BEAKER) (test code = 116 mg/dL 631) HDL CHOLESTEROL (BEAKER) (test code 33 mg/dL = 976) LDL CHOLESTEROL CALCULATED (BEAKER) 39 mg/dL (test code = 633) Triglyceride Reference Range: Low Risk <150 Borderline 150-199 High Risk 200- 499 Very High Risk >=500Cholesterol Reference Range: Low Risk <200 Borderline 200-239 High Risk >240HDL Cholesterol Reference Range: Low Risk >=60 High Risk <40LDL Cholesterol Reference Range: Optimal <100 Near Optimal 100-129 Borderline 130-159 High 160-189 Very High >=190 [employer] ID - DBELECTROCARDIOGRAM [id number] 13:35:50Result approved by Ciara Delgado MD on 12/12/19[facility] 2019-04-25 16:24:09Result approved by Ciara Delgado MD on 04/25/19[facility] [id number] 08:31:00 Test Item Value Reference Range Interpretation Comments POC-GLUCOSE METER 195 mg/dL 70-110 H TESTED AT [facility] 6720 (BEAKER) (test code = [place] 1538) [id number] 05:59:00 Test Item Value Reference Range Interpretation Comments MAGNESIUM (BEAKER) (test code = 2.0 mg/dL 1.6-2.6 627) BASIC METABOLIC [id number] 05:59:00 Test Item Value Reference Range Interpretation [...] MEAN CORPUSCULAR HEMOGLOBIN CONC 32.4 GM/DL 32.3-36.5 ([facility]) (test code = 752) RED CELL DISTRIBUTION WIDTH 12.8 % 11.6-14.4 ([facility]) (test code = 412) PLATELET COUNT ([facility]) (test 262 K/CU MM 150-450 code = 756) MEAN PLATELET VOLUME ([facility]) 9.6 fL 9.4-12.4 (test code = 754) NUCLEATED RED BLOOD CELLS 0 /100 WBC 0-0 ([facility]) (test code = 413) POCT-GLUCOSE [id number] 23:05:00 Test Item Value Reference Range Interpretation Comments POC-GLUCOSE METER 337 mg/dL 70-110 H TESTED AT [place] [address] ([facility]) (test code = [place]NE [place] 1538) [address] POCT-GLUCOSE [id number] 20:14:00 Test Item Value Reference Range Interpretation Comments POC-GLUCOSE METER 170 mg/dL 70-110 H TESTED AT [place] [address] ([facility]) (test code = [place] 1538) [id number] 19:30:00 Test Item Value Reference Range Interpretation Comments ACTIVATED CLOTTING TIME 136 sec TEST ED AT [place] [address] ([facility]) (test code = J[place] [address]) [address] POCT-GLUCOSE [id number] 16:54:00 Test Item Value Reference Range Interpretation Comments POC-GLUCOSE METER 149 mg/dL 70-110 H TESTED AT [place] [address] ([facility]) (test code = [place]ASUZANNE [place] 1538) [address] [id number] 15:06:00 Test Item Value Reference Range Interpretation Comments ACTIVATED CLOTTING TIME 318 sec TEST ED AT [place] [address] ([facility]) (test code = [place]ASUZANNE Tye [place] [address]) [address] POCT-GLUCOSE [id number] 08:51:00 Test Item Value Reference Range Interpretation Comments POC-GLUCOSE METER 208 mg/dL 70-110 H TESTED AT [place] [address] ([facility]) (test code = LATOYASUZANNE [place] 1538) [address] BASIC METABOLIC [id number] 08:19:00 Test Item Value Reference Range Interpretation Comments SODIUM ([facility]) 138 meq/L 136-145 (test code = 381) [...] S NOT APPLICABLE FOR DIALYSIS PATIEN TS. [id number] 06:49:00 Test Item Value Reference Range Interpretation Comments MAGNESIUM (BEAKER) (test code = 1.6 mg/dL 1.6-2.6 627) POCT-GLUCOSE [id number] 21:32:00 Test Item Value Reference Range Interpretation Comments POC-GLUCOSE METER 278 mg/dL 70-110 H TESTED AT [place] [address] ([facility]) (test code = JULIUS Gamble [place] [address]) [address] POCT-GLUCOSE [id number] 18:28:00 Test Item Value Reference Range Interpretation Comments POC-GLUCOSE METER 404 mg/dL 70-110 HH Notified R Lena REYNA/TESTED ([facility]) (test code = AT [place] [address]) [facility] 7[address] 0 POCT-GLUCOSE [id number] 17:13:00 Test Item Value Reference Range Interpretation Comments POC-GLUCOSE METER 415 mg/dL 70-110 HH TESTED AT [place] [address] ([facility]) (test code = JULIUS Gam[place] [address]) [address] [employer], MULTI, PHARM, [id number] 14:25:00FINAL REPORT PROCEDURE: Rest/Stress MYOCARDIAL PERFUSION SPECT with regadenoson\\XA9\\ CPT CODE: 39334 INDICATION: CAD, acute chest pain, abnormal treadmill test HISTORY: Cardiac risk factors: Diabetes, hypertension, hyperlipidemia, cerebrovascular [...] was by 10-second iv infusion of 0.4 mgof regadenoson. Radiotracer was injected 30 seconds after start of stress. Heart rate was 62 beats/min at rest and 85 beats/min (59 % of MPHR) at tracer injection. BP was 187/88 mmHg at rest and 166/72mmHg at tracer injection. Stress was stopped for predetermined endpoint. The patient experienced legdiscomfort, abdominal discomfort, chest pressure, and headache; treatment was not required. Prelimina ry ECG evaluation was not available from cardiology at the time of this report. (Final ECG interpretation and other stress and monitoring data are reported separately by Cardiology.) IMAGING FINDINGS: Study quality is good. Post-stress images show moderate decrease in activity in the basal and mid anterolateral and inferolateral segments and in the lateral apical segment. Resting images show markedlyimproved distribution. LV volume appears normal. RV volume appears normal. Gated images obtained at rest after stress injection show mild lateral hypokinesis . QGS LVEF is 37% at immediately post stress and 57 at rest%. IMPRESSION: 1. Abnormal study. 2. Appropriate pharmacologic stress. 3. Abnormal myocardial perfusion. There is a moderate severity, large sized, mostly reversible, perfusion defect inthe anterolateral and inferolateral LV. 4. Overall resting LV function is normal with normal wall motion. There is regional LV function deterioration with pharmacologic stress. 5. Extracardiac tracer di stribution is normal. 6. The previous study of 10/22/2012 was reported normal. Signed: Berenice Fish MDReport Verified Date/Time: 04/05/2018 14:25:54 Reading Location: [place] [id number] Reading [facility] POCT-GLUCOSE [id number] 08:32:00 Test Item Value Reference Range Interpretation Comments POC-GLUCOSE METER 214 mg/dL 70-110 H TESTED AT [place] [address] (BEAKER) (test code = JULIUS Gamble [facility] 1538) [id number] 06:37:00 Test Item Value Reference Range Interpretation Comments MAGNESIUM (BEAKER) (test code = 2.0 mg/dL 1.6-2.6 627) POCT-GLUCOSE [id number] 21:22:00 Test Item Value Reference Range Interpretation Comments POC-GLUCOSE METER 281 mg/dL 70-110 H TESTED AT [place] [address] ([facility] (test code = JULIUS Gamble [facility] 1538) [address] POCT-GLUCOSE [id number] 17:03:00 Test Item Value Reference Range Interpretation Comments POC-GLUCOSE METER 182 mg/dL 70-110 H TESTED AT [place] [address] ([facility]) (test code = JULIUS Gamble [facility] 1538) [address] POCT-GLUCOSE [id number] 12:48:00 Test Item Value Reference Range Interpretation Comments POC-GLUCOSE METER 193 mg/dL 70-110 H TESTED AT [place] [address] ([facility]) (test code = JULIUS Gamble [facility] 1538) [address] POCT-GLUCOSE [id number] 08:26:00 Test Item Value Reference Range Interpretation Comments POC-GLUCOSE METER 189 mg/dL 70-110 H TESTED AT [place] [address] ([facility]) (test code = JULIUS Gamble [facility] 1538) [address] [id number] 06:40:00 Test Item Value Reference Range Interpretation Comments MAGNESIUM (BEAKER) (test code = 1.7 mg/dL 1.6-2.6 627) BASIC METABOLIC [id number] 06:40:00 Test Item Value Reference Range Interpretation [...] code = 756) MEAN PLATELET VOLUME (BEAKER) 10.1 fL 9.4-12.4 (test code = 754) NUCLEATED RED BLOOD CELLS 0 /100 WBC 0-0 (BEAKER) (test code = 413) POCT-GLUCOSE [id number] 21:57:00 Test Item Value Reference Range Interpretation Comments POC-GLUCOSE METER 214 mg/dL 70-110 H TESTED AT [facility] 6720 ([facility]) (test code = [place]) [address] POCT-GLUCOSE [id number] 16:45:00 Test Item Value Reference Range Interpretation Comments POC-GLUCOSE METER 164 mg/dL 70-110 H TESTED AT [facility] 6720 ([facility]) (test code = [facility] Tye [facility] [address]) [address] POCT-GLUCOSE [id number] 12:19:00 Test Item Value Reference Range Interpretation Comments POC-GLUCOSE METER 194 mg/dL 70-110 H TESTED AT [facility] 6720 ([facility]) (test code = JULIUS Gamble [facility] 1538) [address] POCT-GLUCOSE [id number] 10:02:00 Test Item Value Reference Range Interpretation Comments POC-GLUCOSE METER 186 mg/dL 70-110 H TESTED AT [place] [address] ([facility]) (test code = [facility] 1538) [address] CREATINE KINASE (CK), TOTAL AND [id number] 10:01:00 Test Item Value Reference Range Interpretation Comments CREATINE KINASE TOTAL ([facility]) 72 U/L 29-200 (test code = 380) CREATINE KINASE-MB ([facility]) (test 1.7 ng/mL 0.0-6.6 code = 750) CREATINE KINASE-MB INDEX ([facility]) 2.4 % (test code = 395) CK-MB Reference Range:<6.7 Normal6.7-10.0 Borderline>10.0 AbnormalTROPONIN [id number] 10:01:00 Test Item Value Reference Range Interpretation Comments TROPONIN I ([facility]) (test code = 397) < ng/mL [...] neurological disease, and persistent tachyarrhythmia.TSH/FREE T4 IF [id number] 07:14:00 Test Item Value Reference Range Interpretation Comments THYROID STIMULATING HORMONE 1.91 uIU/mL 0.35-4.94 ([facility]) (test code = 772) [id number] 07:08:00 Test Item Value Reference Range Interpretation Comments MAGNESIUM ([facility]) (test code = 1.6 mg/dL 1.6-2.6 627) BASIC METABOLIC [id number] 07:08:00 Test Item Value Reference Range Interpretation [...] NOT APPLICABLE FOR DIALYSIS PATIEN TS. LIPID [id number] 07:08:00 Test Item Value Reference Range Interpretation [...] 100-129 Borderline 130-159 High 160-189 Very High >=190D-DIMER 2018-04-03 06:46:00 Test Item Value Reference Range Interpretation [...] within 95-100% range.CBC W/PLT COUNT & AUTO [id number] 06:34:00 Test Item Value Reference Range Interpretation [...] 417) IMMATURE GRANULOCYTES-RELATIVE 0 % 0-1 PERCENT (AKER) (test code = 2801) CREATINE KINASE (CK), TOTAL AND [id number] 00:53:00 Test Item Value Reference Range Interpretation Comments CREATINE KINASE TOTAL (BEAKER) 72 U/L 29-200 (test code = 380) CREATINE KINASE-MB ([facility]) (test 1.6 ng/mL 0.0-6.6 code = 750) CREATINE KINASE-MB INDEX (AKER) 2.2 % (test code = 395) CK-MB Reference Range:<6.7 Normal6.7-10.0 Borderline>10.0 AbnormalTROPONIN [id number] 00:53:00 Test Item Value Reference Range Interpretation [...] acidosis, acute neurological disease, and persistent tachyarrhythmia.POCT-GLUCOSE [id number] 20:58:00 Test Item Value Reference Range Interpretation Comments POC-GLUCOSE METER 196 mg/dL 70-110 H TESTED AT [facility] 6720 ([facility]) (test code = [place] [address]) [address] HEMOGLOBIN [id number] 20:11:00 Test Item Value Reference Range Interpretation Comments HEMOGLOBIN A1C (BEAKER) (test code = 8.4 % 4.3-6.1 H 368) LIPID [id number] 18:43:00 Test Item Value Reference Range Interpretation Comments TRIGLYCERIDES (BEAKER) (test code = 177 mg/dL 540) CHOLESTEROL (BEAKER) (test code = 127 mg/dL 631) HDL CHOLESTEROL (BEAKER) (test code 37 mg/dL = 976) LDL CHOLESTEROL CALCULATED ([facility]) 55 mg/dL (test code = 633) Triglyceride Reference Range: Low Risk <150 Borderline 150-199 High Risk 200- 499 Very High Risk >=500Cholesterol Reference Range: Low Risk <200 Borderline 200-239 High Risk >240HDL Cholesterol Reference Range: Low Risk >=60 High Risk <40LDL Cholesterol Reference Range: Optimal <100 Near Optimal 100-129 Borderline 130-159 High 160-189 Very High >=190HEPATIC FUNCTION [id number] 18:43:00 Test Item Value Reference Range Interpretation Comments TOTAL PROTEIN (BEAKER) (test code = 7.2 gm/dL 6.0-8.3 770) ALBUMIN (BEAKER) (test code = 1145) 4.1 g/dL 3.5-5.0 BILIRUBIN TOTAL (AKER) (test code 0.7 mg/dL 0.2-1.2 = 377) BILIRUBIN DIRECT (BEAKER) (test 0.2 mg/dL 0.1-0.5 code = 706) ALKALINE PHOSPHATASE (BEAKER) (test 69 U/L 40-150 code = 346) AST (SGOT) (BEAKER) (test code = 34 U/L 5-34 353) ALT (SGPT) (BEAKER) (test code = 23 U/L 6-55 347) TSH/FREE T4 IF [id number] 18:41:00 Test Item Value Reference Range Interpretation Comments THYROID STIMULATING HORMONE 2.59 uIU/mL 0.35-4.94 (AKER) (test code = 772) POCT-GLUCOSE [id number] 16:49:00 Test Item Value Reference Range Interpretation Comments POC-GLUCOSE METER 85 mg/dL 70-110 TESTED AT [facility] 6720 ([facility]) (test code = [place] [address]) RAD, RIBS, [id number] 15:11:00Reason for exam:->CHEST PAINReason for exam:->ABNORMAL ECGFINAL REPORT CLINICAL HISTORY: CHEST PAINABNORMAL ECG TECHNIQUE: 1 view of the chest with 4 additional views of the left ribs. COMPARISON: Chest x-ray 11/19/2015 IMPRESSION: There isno evidence for a left-sided rib fracture. The right ribs also appear intact. There are no infiltrates or effusions. The cardiomediastinal silhouette is magnified by technique with sternotomy wires. Signed: Teresa Jackson MDReport Verified Date/Time: 04/02/2018 15:11:58 Reading Location: [address] Consult Reading Room ALYSIS W/ [id number] 14:07:00 Test Item Value Reference Range Interpretation [...] SOURCE(BEAKER) (test code Urine, Clean Catch = 0295) CREATINE KINASE (CK), TOTAL AND [id number] 14:04:00 Test Item Value Reference Range Interpretation Comments CREATINE KINASE TOTAL (BEAKER) 88 U/L 29-200 (test code = 380) CREATINE KINASE-MB (BEAKER) (test 1.7 ng/mL 0.0-6.6 code = 750) CREATINE KINASE-MB INDEX (BEAKER) 1.9 % (test code = 395) CK-MB Reference Range:<6.7 Normal6.7-10.0 Borderline>10.0 AbnormalTROPONIN [id number] 14:04:00 Test Item Value Reference Range Interpretation [...] acute neurological disease, and persistent tachyarrhythmia.BASIC METABOLIC [id number] 13:31:00 Test Item Value Reference Range Interpretation [...] PATIEN TS. CBC W/PLT COUNT & AUTO [id number] 13:09:00 Test Item Value Reference Range Interpretation [...]
[2022-01-30 13:51] LABS: Absolute Lymphocytes (CBC) 2.7 K/uL (0.7-4.9); Hematocrit 36.5 % (39.6-49.0); Lymphocytes % 34.1 % (15.3-44.8); RBC Red Blood Cell Count 4.06 M/uL (4.33-5.43)
--- NOTE | 2022-01-30 14:10 | RAD REPORT ---
EXAM DESCRIPTION: CT - Head Brain Wo Cont - 01/30/2022 1:53 pm CLINICAL HISTORY: Dizziness COMPARISON: 2019 TECHNIQUE: Computed axial tomography of the head was obtained. IV contrast was not requested. All CT scans are performed using dose optimization technique as appropriate and may include automated exposure control or mA/KV adjustment according to patient size. FINDINGS: An intracranial bleed is not seen . The ventricles are normal in caliber. No extra-axial fluid collection is noted. Low-density within the right and left frontal lobes and left occipital lobe probably old infarction. Low-density right caudate and right basal ganglia probably old lacunar infarction. Fluid within the sinuses/ mastoids is not seen. IMPRESSION: No acute intracranial abnormality is seen. If patient's symptoms persist MRI of the bra in would be recommended.
[2022-01-30 14:11] LABS: Troponin High Sensitivity 8.1 pg/mL (<58.9)
--- NOTE | 2022-01-30 14:29 | RAD REPORT ---
EXAM DESCRIPTION: Kena Single View01/30/2022 1:28 pm CLINICAL HISTORY: Hypertension/dizziness COMPARISON: 2019 FINDINGS: The lungs appear clear of acute infiltrate. The heart is normal size. Postsurgical change s involve chest. 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
[2022-01-30 15:55] LABS: Urine Blood Negative (Negative); Urine Glucose Negative (Negative); Urine Protein Negative (Negative)
--- NOTE | 2022-01-30 16:00 | EDPHYS ---
Physician Documentation [facility] Name: Juanpablo Guevara Age: 81 yrs Sex: Male : 1940 Arrival Date: 01/30/2022 Time: 11:49 Bed 24 Private MD: Vianca Nash ED Physician Ron Alonso HPI: 01/30 12:50 This 81 yrs old Male presents to ER via Ambulatory with complaints of Fatigue jl9 and cough x1 week. . 12:50 Onset: The symptoms/episode began/occurred 1 week(s) ago. Associated signs and jl9 symptoms: Pertinent positives: cough, Pertinent negatives: chest pain, headache, shortness of breath. Historical: - Allergies: 12:07 Codeine; ph - PMHx: 12:07 CVA; Diabetes - NIDDM; High Cholesterol; Hypertension; ph - Immunization history:: Adult Immunizations unknown. - Social history:: Smoking status: Patient denies any tobacco usage or history of. ROS: 12:51 Constitutional: Negative for fever, chills, and weight loss. jl9 12:51 Eyes: Negative for injury, pain, redness, and discharge, ENT: Negative for injury, pain, and discharge, Neck: Negative for injury, pain, and swelling, Cardiovascular: Negative for chest pain, palpitations, and edema. 12:51 Abdomen/GI: Negative for abdominal pain, nausea, vomiting, diarrhea, and constipation, Back: Negative for injury and pain, : Negative for injury, bleeding, discharge, and swelling, MS/Extremity: Negative for injury and deformity, Skin: Negative for injury, rash, and discoloration. 12:51 Psych: Negative for depression, anxiety, suicide ideation, homicidal ideation, and hallucinations, Allergy/Immunology: Negative for hives, rash, and allergies, Endocrine: Negative for neck swelling, polydipsia, polyuria, polyphagia, and marked weight changes, Hematologic/Lymphatic: Negative for swollen nodes, abnormal bleeding, and unusual bruising. 12:51 Respiratory: Positive for cough. 12:51 Neuro: Positive for weakness. Exam: 12:52 Constitutional: This is a well developed, well nourished patient who is awake, alert, jl9 and in no acute distress. Head/Face: Normocephalic, atraumatic. Eyes: Pupils equal round and reactive to light, extra-ocular motions intact. Lids and lashes normal. Conjunctiva and sclera are non-icteric and not injected. Cornea within normal limits. Periorbital areas with no swelling, redness, or edema. ENT: Mucous membranes moist. Neck: Trachea midline, no thyromegaly or masses palpated, and no cervical lymphadenopathy. Supple, full range of motion without nuchal rigidity, or vertebral point tenderness. No Meningismus. Chest/axilla: Normal chest wall appearance and motion. Nontender with no deformity. No lesions are appreciated. Cardiovascular: Regular rate and rhythm with a normal S1 and S2. No gallops, murmurs, or rubs. Normal PMI, no JVD. No pulse deficits. 12:52 Abdomen/GI: Soft, non-tender, with normal bowel sounds. No distension or tympany. No guarding or rebound. No evidence of tenderness throughout. Back: No spinal tenderness. No costovertebral tenderness. Full range of motion. Skin: Warm, dry with normal turgor. Normal color with no rashes, no lesions, and no evidence of cellulitis. MS/ Extremity: Pulses equal, no cyanosis. Neurovascular intact. Full, normal range of motion. Neuro: Awake and alert, GCS 15, oriented to person, place, time, and situation. Cranial nerves II-XII grossly intact. Motor strength 5/5 in all extremities. Sensory grossly intact. Cerebellar exam normal. Normal gait. Psych: Awake, alert, with orientation to person, place and time. Behavior, mood, and affect are within normal limits. 12:52 Respiratory: Respirations: normal, Breath sounds: + upper airway congestion. Vital Signs: 12:08 BP 146 / 83; Pulse 71; Resp 18; Temp 98.2; Pulse Ox 100% on R/A; Weight 97.52 kg; ph Height 6 ft. 1 in. (185.42 cm); 13:43 BP 141 / 58; Pulse 56; Resp 13; Pulse Ox 94% on R/A; Pain 0/10; ld1 15:02 BP 154 / 66; Pulse 55; Resp 18; Pulse Ox 100% on R/A; ld1 15:55 BP 149 / 105; Pulse 54; Resp 18; Pulse Ox 100% on R/A; ld1 12:08 Body Mass Index 28.37 (97.52 kg, 185.42 cm) ph MDM: 11:51 Patient medically screened. jl9 12:52 Data reviewed: vital signs, nurses notes. jl9 13:26 Test interpretation: by ED physician or midlevel provider: ECG, SR 56 bpm. jl9 15:58 Differential diagnosis: viral Infection, URI. Counseling: I had a detailed discussion jl9 with the patient and/or guardian regarding: the historical points, exam findings, and any diagnostic results supporting the discharge/admit diagnosis, lab results, radiology results, the need for outpatient follow up. 01/30 12:39 Order name: Basic Metabolic Panel; Complete Time: 14:31 9 01/30 12:39 Order name: CBC with Diff; Complete Time: 14:31 01/30 12:39 Order name: Troponin HS; Complete Time: 14:31 01/30 12:39 Order name: SARS-COV-2 RT PCR (Document "Date of Onset" if Symptomatic); Complete Time: 15:27 01/30 12:39 Order name: Flu; Complete Time: 14:31 01/30 15:56 Order name: Urine Dipstick-Ancillary; Complete Time: 15:56 EDMS 01/30 12:39 Order name: XRAY Chest (1 view); Complete Time: 14:31 9 01/30 12:39 Order name: EKG; Complete Time: 12:42 01/30 12:39 Order name: Cardiac monitoring; Complete Time: 13:42 01/30 12:39 Order name: EKG - Nurse/Tech; Complete Time: 13:42 01/30 12:39 Order name: IV Saline Lock; Complete Time: 13:42 01/30 12:39 Order name: Labs collected and sent; Complete Time: 13:42 01/30 12:39 Order name: Urine Dipstick-Ancillary (obtain specimen); Complete Time: 15:54 01/30 13:39 Order name: CT Head Brain wo Cont; Complete Time: 14:31 jl Administered Medications: No medications were administered Disposition: 21:44 Co-signature as Attending Physician, Ron MARTINEZ was immediately available on-site ms3 in the Emergency Department for consultation in the care of the patient.. Disposition Summary: 01/30/22 16:00 Discharge Ordered Location: Home jl9 Condition: Stable jl9 Diagnosis - Other fatigue jl9 Followup: jl9 - With: Private Physician - When: 1 - 2 days - Reason: Recheck today's complaints, Continuance of care, Re-evaluation by your physician Discharge Instructions: - Discharge Summary Sheet jl9 - Weakness jl9 - Fatigue jl9 Forms: - Medication Reconciliation Form jl9 - Thank You Letter jl9 - Antibiotic Education jl9 - Prescription Opioid Use jl9 Prescriptions: - dvgwxygehevnnv-pfehhtxhebrr-XH 4-10-20 mg/5 mL Oral liquid - take 5 milliliter by ORAL route every 6 hours As needed as needed; 100 jl9 milliliter; Refills: 0, Product Selection Permitted - ondansetron 8 mg Oral tablet,disintegrating - take 1 tablet by ORAL route every 8 hours As needed; 20 tablet; Refills: 0, jl9 Product Selection Permitted Signatures: Dispatcher [employer] Shila Diaz RN RN ph Ron Alonso DO DO ms3 Edmundo Hays jl9 Corrections: (The following items were deleted from the chart) 15:59 15:58 Chart complete. jl9 jl9
--- NOTE | 2022-01-30 16:00 | ER ---
Nurse's Notes [facility] Name: Juanpablo Guevara Age: 81 yrs Sex: Male : 1940 Arrival Date: 01/30/2022 Time: 11:49 Bed 24 Private MD: Vianca Nash Diagnosis: Other fatigue Presentation: 01/30 12:08 Chief complaint: Patient states: Dizzy and fatigue x 3-4 days, also reports slight ph cough and some diiarrhea. Coronavirus screen: Vaccine status: Patient reports receiving the 2nd dose of the covid vaccine. Ebola Screen: No symptoms or risks identified at this time. Initial Sepsis Screen: Does the patient meet any 2 criteria? No. Patient's initial sepsis screen is negative. Does the patient have a suspected source of infection? No. Patient's initial sepsis screen is negative. Risk Assessment: Do you want to hurt yourself or someone else? Patient reports no desire to harm self or others. Onset of symptoms was January 30, 2022. 12:08 Method Of Arrival: Ambulatory ph 12:08 Acuity: CHRISTOPHE 3 ph Historical: - Allergies: 12:07 Codeine; ph - PMHx: 12:07 CVA; Diabetes - NIDDM; High Cholesterol; Hypertension; ph - Immunization history:: Adult Immunizations unknown. - Social history:: Smoking status: Patient denies any tobacco usage or history of. Screenin:43 Abuse screen: Denies threats or abuse. Denies injuries from another. Nutritional ld1 screening: No deficits noted. Tuberculosis screening: No symptoms or risk factors identified. Fall Risk None identified. Assessment: 13:43 General: Appears in no apparent distress. comfortable, Behavior is calm, cooperative, ld1 appropriate for age. Pain: Denies pain. Neuro: Angulo Agitation-Sedation Scale (RASS): 0 - Alert and Calm Level of Consciousness is awake, alert, obeys commands, Oriented to person, place, time, situation. Cardiovascular: Capillary refill < 3 seconds Patient's skin is warm and dry. Rhythm is sinus bradycardia. Respiratory: Airway is patent Respiratory effort is even, unlabored. GI: Abdomen is flat, non-distended. : No signs and/or symptoms were reported regarding the genitourinary system. EENT: No signs and/or symptoms were reported regarding the EENT system. Derm: No signs and/or symptoms reported regarding the dermatologic system. Musculoskeletal: No signs and/or symptoms reported regarding the musculoskeletal system. Vital Signs: 12:08 BP 146 / 83; Pulse 71; Resp 18; Temp 98.2; Pulse Ox 100% on R/A; Weight 97.52 kg; ph Height 6 ft. 1 in. (185.42 cm); 13:43 BP 141 / 58; Pulse 56; Resp 13; Pulse Ox 94% on R/A; Pain 0/10; ld1 15:02 BP 154 / 66; Pulse 55; Resp 18; Pulse Ox 100% on R/A; ld1 15:55 BP 149 / 105; Pulse 54; Resp 18; Pulse Ox 100% on R/A; ld1 12:08 Body Mass Index 28.37 (97.52 kg, 185.42 cm) ph ED Course: 11:49 Patient arrived in ED. am2 11:49 Vianca Nash MD is Private Physician. am2 11:51 [facility] jl9 11:51 Ron Alonso DO is Attending Physician. jl9 12:11 Triage completed. ph 12:11 Arm band placed on right wrist. EKG completed in triage. Results shown to MD. ph 12:12 Ariana Harrell, RN is Primary Nurse. ld1 13:30 XRAY Chest (1 view) In Process Unspecified. EDMS 13:42 SARS-COV-2 RT PCR (Document "Date of Onset" if Symptomatic) Sent. ld1 13:42 Inserted saline lock: 20 gauge in right antecubital area, using aseptic technique. ld1 Blood collected. 13:43 Patient has correct armband on for positive identification. Placed in gown. Bed in low ld1 position. Call light in reach. Side rails up X2. cafeteria monitor on. Pulse ox on. NIBP on. Door closed. Noise minimized. Warm blanket given. 13:43 Flu Sent. ld1 13:43 No provider procedures requiring assistance completed. ld1 13:54 CT Head Brain wo Cont In Process Unspecified. EDMS 16:10 IV discontinued, intact, bleeding controlled, No redness/swelling at site. ld1 Administered Medications: No medications were administered Medication: 13:43 VIS not applicable for this client. ld1 Outcome: 16:00 Discharge ordered by . jl9 16:10 Discharged to home ambulatory, with family. ld1 16:10 Condition: stable 16:10 Discharge instructions given to patient, family, Instructed on discharge instructions, follow up and referral plans. medication usage, Demonstrated understanding of instructions, follow-up care, medications, Prescriptions given X 2. 16:10 Patient left the ED. ld1 Signatures: Dispatcher [employer] EDShila Easley RN RN ph Moreno, Amanda am2 Dibbern, Lauren, RN RN ld1 Edmundo Hays9
[2022-01-30 16:49] VITALS: TEMP 98.2
[2022-01-30 16:53] VITALS: O2SAT 100
[2022-01-30 16:57] VITALS: BP 149/105
--- NOTE | 2022-01-31 08:14 | EKG ---
Test Date: 2022-01-30 Test Time: 13:21:57 Band Salvager: JERMAINE MEASUREMENT RESULTS: Intervals: Rate: 56 OR: QRSD: 134 QT: 424 QTc: 409 [place]: P: OR: QRS: -34 T: 14 INTERPRETIVE STATEMENTS: Wide QRS rhythm Left axis deviation Right bundle branch block Abnormal ECG Compared to ECG 06/07/2020 16:40:04 Uncertain supraventricular rhythm now present Left-axis deviation now present Sinus rhythm no longer present Electronically Signed On 01-31-22 08:11:12 CDT by Rudy Chapa
== END 2022-01-30 16:10 | disposition home or self-care (01) ==
LOC: ER 11:47
DX: R53.83 Other fatigue (principal); R05.9 Cough, unspecified; R53.1 Weakness; E11.9 Type 2 diabetes mellitus without complications; I10 Essential (primary) hypertension; Z20.822 Contact with and (suspected) exposure to COVID-19; Z86.73 Personal history of transient ischemic attack (TIA), and cerebral infarction without residual deficits; Z88.5 Allergy status to narcotic agent
CPT/HCPCS: 93005; 85025; 80048; 36415; 81003; 84484; 87804 ×2; 70450; 71045; 99284; U0003